=== PATIENT | male | born 1950 | race Caucasian/White ===

== ENCOUNTER 2017-07-29 12:30 | Inpatient (IN) | payer MEDICARE, MEDICAID ==
--- NOTE | 2017-07-29 13:10 | ED Physician Chart ---
ED Chief Complaint/HPI - Patient Information Date Seen:: 07/29/17 Time Seen:: 12:00 Chief Complaint:: combative behavior History of Present Illness:: At the patient's residential facility he was reportedly striking and spitting at others. Allergies:: Allergies Allergy/AdvReac Type Severity Reaction Status Date / Time No Known Allergies Allergy Verified 07/29/17 12:46 Vitals:: Vital Signs - 8 hr 07/29/17 12:33 Temp 97.9 F HR 75 RR 20 BP 118/69 O2 Sat % 97 Historian:: Patient, Medical Records Review:: Transfer documents Reviewed ED Review of Systems - Review of Systems General/Constitutional: No fever, No chills Skin: No skin lesions Head: No headache Eyes: No loss of vision ENT: No earache Neck: No neck pain, No swelling Cardio Vascular: No palpitations Pulmonary: No SOB GI: No nausea, No vomiting, No diarrhea G/U: No dysuria Musculoskeletal: No bone or joint pain Endocrine: No polyuria, No polydipsia Psychiatric: Prior psych history Hematopoietic: No bruising Allergic/Immuno: No urticaria Neurological: No syncope ED Past Medical History - Past Medical History Past Medical History: HTN, DM, CAD, CHF, Seizures Family History: Other (unavailable) Social History: Care Facility Surgical History: other (unavailable) Psychiatricy History: Other (psychosis) Medication: Reviewed Family Medical History - Family Member Mother Ethnicity: Non- Living Status: Unknown Hx Family Cancer: No Hx Family Coronary Artery Disease: No Hx Family Congestive Heart Failure: No Hx Family Hypertension: No Hx Family Stroke: No Hx Family Diabetes: No Hx Family Seizures: No Hx Family Dementia: No Hx Family AIDS: No Hx Family HIV: No Hx Family COPD: No Hx Family Hepatitis: No Hx Family Psychiatric Problems: No Hx Family Tuberculosis: No ED Physical Exam - Physical Examination General/Constitutional: Awake Other Gen/Cons comments:: Speech incomprehensible Head: Atraumatic Eyes: Lids, conjuctiva normal, PERRL Skin: Nl inspection, No rash, No skin lesions ENMT: External ears, nose nl Other ENMT comments:: Poor dental hygiene Neck: No nuchal rigidity Respiratory: Clear to Auscultation, No Wheeze/Rhonchi/Rales Cardio Vascular: RRR, No murmur, gallop, rubs GI: No tenderness/rebounding/guarding, No mass/bruits : No CVA tenderness Extremities: Normal digits & nails Neuro/Psych: No focal deficits Misc: No paraspinal tenderness ED Labs/Radiology/EKG Results - EKG Interpretations Rate & Rhythm: normal sinus rhythm with a report rate of 72 and normal axis Comments:: early repolarization ED Assessment - Assessment General Assessment: Patient refuses laboratory tests ED Septic Shock - . Is Septic Shock (SBP<90, OR Lactate>4 mmol\L) present?: No - <6hrs of presentation: Vital Signs: Vital Signs - 8 hr 07/29/17 12:33 Temp 97.9 F HR 75 RR 20 BP 118/69 O2 Sat % 97 ED Reassessment (Disposition) - Reassessment Reassessment Condition:: Unchanged - Diagnosis Diagnosis:: psychosis; combative behavior - Patient Disposition Admitted to:: [facility] Condition at Disposition:: Stable, Unchanged ED Discharge Plan - Patient Disposition
[2017-07-29 14:58] VITALS: BP 145/77
[2017-07-29] MEDS ORDERED: Magnesium Hydroxide (MOM) 30 mL UDC PO PRN (16:27)
[2017-07-29] MEDS ORDERED: Maalox 30 mL Cup PO PRN (16:27)
[2017-07-29 17:05] LABS: % BASOPHILS 0.2 % (0.0-2.0); % EOSINOPHILS 5.9 % (0.0-5.0); % LYMPHOCYTES 26.6 % (20.0-50.0); % NEUTROPHILS 60.3 % (40.0-80.0); EOSINOPHILE ABSOLUTE 0.3 Th/cmm (0.1-0.4); HEMATOCRIT 44.8 % (41.0-60); HEMOGLOBIN 14.8 gm/dL (12-16); LYMPHOCYTE ABSOLUTE 1.3 Th/cmm (1.5-3.0); MEAN CELL VOLUME 89.6 fl (80-99); MEAN CORPUSCULAR HEMOGLOBIN 29.6 pg (27.0-31.0); MEAN CORPUSCULAR HGB CONC 33.1 pg (28.0-36.0); MEAN PLATELET VOLUME 8.2 fl; MONOCYTE ABSOLUTE 0.3 Th/cmm (0.3-1.0); NEUTROPHILE ABSOLUTE 2.9 Th/cmm (1.8-8.0); PLATELET COUNT 263 Th/cmm (150-400); RED CELL DISTRIBUTION WIDTH 12.8 % (11.5-20.0); WHITE BLOOD COUNT 4.8 Th/cmm (4.8-10.8)
[2017-07-29 17:16] LABS: ACETAMINOPHEN < 10.0 ug/mL (10.0-30.0); CHOLESTEROL 252 mg/dL (<200); HDL -HIGH DENSITY LIPOPROTEIN 44 mg/dL (23-92); SALICYLATES (ASPIRIN) < 25.0 mg/L (30.0-100.0); TRIGLYCERIDES 265 mg/dL (<150)
[2017-07-29 17:40] LABS: ALB/GLOB RATIO 1.5 (1.0-1.8); ALBUMIN 4.5 gm/dL (4.2-5.5); ALKALINE PHOSPHATASE 32 U/L (34-104); ANION GAP 13.2 (7.0-16.0); BILIRUBIN,TOTAL 0.3 mg/dL (0.3-1.0); BUN - UREA NITROGEN 15 mg/dL (7-25); CALCIUM SERUM 9.4 mg/dL (8.6-10.3); CARBON DIOXIDE 21.4 mEq/L (21.0-31.0); CHLORIDE 102 mEq/L (98-107); CREATININE - SERUM 1.3 mg/dL (0.7-1.3); GFR AFRICAN-AMERICAN > 60.0 ml/min (>90); GFR NON AFRICAN-AMERICAN 58.9 ml/min; GLUCOSE 135 mg/dL (70-105); POTASSIUM SERUM 3.6 mEq/L (3.5-5.1); SGOT 20 U/L (13-39); SGPT/ALT 22 U/L (7-52); SODIUM SERUM 133 mEq/L (136-145); TOTAL PROTEIN,SERUM 7.6 gm/dL (6.0-8.3)
[2017-07-30] MEDS: Multivitamin Tab PO SCH (09:19)
[2017-07-30] MEDS: Lactulose 10 Gm/15 mL 30mL UDC PO SCH ×2 (09:19→17:07)
[2017-07-30] MEDS: Fenofibrate, Micronized 134 mg Cap PO SCH (09:20)
[2017-07-30 17:18] LABS: A1C % 5.8 % (4.0-6.0)
--- NOTE | 2017-07-30 19:49 | History and Physical ---
History of Present Illness - HPI Chief Complaint: agressive behvior HPI: This is a 67 year old male who is a prison resident admitted to the geropsych unit due to aggressive behavior towards nursing staff at the snf. Vital Signs: Last Vital Signs Temp 97.4 F 07/30/17 14:00 Pulse 98 07/30/17 14:00 Resp 20 07/30/17 14:00 BP 147/62 07/30/17 14:00 Pulse Ox 96 07/30/17 14:00 Past Medical History Other History: HTN, DM, CAD, CHF, Seizures Family Medical History - Family Member Mother History Unknown: Yes Ethnicity: Non- Living Status: Unknown Hx Family Cancer: No Hx Family Coronary Artery Disease: No Hx Family Congestive Heart Failure: No Hx Family Hypertension: No Hx Family Stroke: No Hx Family Diabetes: No Hx Family Seizures: No Hx Family Dementia: No Hx Family AIDS: No Hx Family HIV: No Hx Family COPD: No Hx Family Hepatitis: No Hx Family Psychiatric Problems: No Hx Family Tuberculosis: No Social History Smoke: No Alcohol: None Drugs: None Lives: Snf - Medications Home Medications: Home Medication Medication Instructions Recorded Type Acetaminophen [8 Hour] 650 mg PO Q4H PRN 07/29/17 History Acetaminophen [8 Hour] 650 mg PO Q4H PRN 07/29/17 History Bisacodyl [Dulcolax 10 Mg Supp] 10 mg RC DAILY PRN 07/29/17 History Carbamazepine [Tegretol Xr] 400 mg PO TID 07/29/17 History Citalopram Hydrobromide 20 mg PO DAILY 07/29/17 History [Citalopram HBr] Docusate Sodium [Dok] 200 mg PO DAILY 07/29/17 History Fenofibrate 160 mg PO DAILY 07/29/17 History Lactulose 20 gm PO BID 07/29/17 History Levetiracetam [Keppra] 1,000 mg PO HS 07/29/17 History Levetiracetam [Keppra] 500 mg PO QAM 07/29/17 History Magnesium Hydroxide [Milk of 30 ml PO DAILY PRN 07/29/17 History Magnesia] Multivitamin [Daily Vitamin 1 each PO DAILY 07/29/17 History Formula] Na Phos, Dibasic/Na Phos, Mo 135 ml RC DAILY PRN 07/29/17 History [Fleet Enema] Simvastatin [Zocor*] 20 mg PO HS 07/29/17 History - Allergies Allergies/Adverse Reactions: Allergies Allergy/AdvReac Type Severity Reaction Status Date / Time No Known Allergies Allergy Verified 07/29/17 12:46 Review of Systems - Review of Systems Constitutional: Report: No Significant Eyes: Report: No Significant ENT: Report: No Significant Respiratory: Report: No Significant Cardiovascular: Report: No Significant Gastrointestinal: Report: No Significant Genitourinary: Report: No Significant Skin: Report: No Significant Neurological: Report: No Significant Physical Exam - Physical Exam HEENT: Report: Ears Nose Throat within normal limits Neck: Report: Within normal limits Cardiovascular Systems: Report: +s1/s2 noted Respiratory: Report: Breath Sounds are within normal limits Extremities: Report: Non-tender to palpation. Neuro/Psych: Report: Mood affect is within normal limits - Lab Results All Lab Results last 24 hours: Laboratory Results - last 24 hr 07/29/17 07/29/17 16:48 16:48 Hemoglobin A1c % 5.8 RPR NONREACTIVE - Assessment Assessment: agitation htn seizure chf - Plan Plan: seizure precautions continue current orders
[2017-07-31] MEDS: Fenofibrate, Micronized 134 mg Cap PO SCH (08:00)
[2017-07-31] MEDS: Multivitamin Tab PO SCH (08:01)
[2017-07-31] MEDS: Lactulose 10 Gm/15 mL 30mL UDC PO SCH ×2 (08:01→16:36)
--- NOTE | 2017-07-31 16:02 | Psychosocial Evaluation ---
DATE OF SERVICE: 07/29/2017 CHIEF COMPLAINT: Agitation and noncompliance with medications. HISTORY OF PRESENT ILLNESS: The patient was transferred from [facility] to [facility] because of increased psychosis and because of noncompliance with medications and increased agitation. The patient also has been combative and aggressive and he was striking out in [facility] and he was spitting out others and his behavior was out of control. The patient is still extremely irritable and agitated. Also, is unable to follow directions and he seems to be very psychotic. PAST PSYCHIATRIC HISTORY: The patient has history of psychosis and what seems to be a schizoaffective disorder. MEDICATIONS: The patient has been taking Seroquel, Celexa, and carbamazepine. PAST MEDICAL HISTORY: The patient has hypertension, diabetes mellitus, coronary artery disease, congestive heart failure, and seizures. SOCIAL HISTORY: The patient lives in [facility]. No known alcohol or street drug use. No legal issues. ALLERGIES: No known allergies. MENTAL STATUS EXAMINATION: The patient appears slightly older than his stated age. Anxious. Paranoid. Irritable mood. Thought processes are circumstantial with flight of ideas. The patient did not answer questions regarding hallucinations or delusions, but seems to be paranoid. The patient denied suicidal or homicidal ideations. The patient is alert and oriented to situation, but not to place or person. Intact immediate, recent, and remote memories. Poor insight and poor judgment. ASSESSMENT: PRIMARY DIAGNOSIS: Schizoaffective disorder, bipolar type, with psychotic features. MEDICAL DIAGNOSES: 1. Hypertension. 2. Diabetes mellitus. 3. Congestive heart failure 4. Seizure disorder. TREATMENT PLAN: We will continue to monitor his behavior and his condition closely. Also, we will continue Seroquel as well as carbamazepine, and Celexa and we will adjust the dose. ESTIMATED LENGTH OF STAY: 5-7 days. THE PATIENT'S STRENGTHS AND WEAKNESSES: The patient's strength is not clear at this time. Weaknesses is ineffective coping. AFTER DISCHARGE PLAN: The patient will return to [facility] with plans for outpatient treatment and follow up as an outpatient. CRITERIA FOR DISCHARGE: The patient will not be agitated or psychotic and will stabilize psychotropic medications and will establish outpatient treatment plans. [facility]# [id number]
--- NOTE | 2017-07-31 19:19 | Progress Notes ---
DATE: 07/31/2017 SUBJECTIVE: The patient was seen in the dining area having breakfast. The patient appears to be guarded at this time, but no behavioral issues noted from last night, otherwise the patient appears to be in no acute distress. OBJECTIVE: VITAL SIGNS: Temperature 97.4, heart rate 98, blood pressure 147/62, respirations of 20, 96% on room air. HEENT: Head is atraumatic and normocephalic. Eyes: Bilateral conjunctivae are clear. Bilateral pupils are equally round and reactive. NECK: Supple. No JVD. CARDIOVASCULAR: S1 and S2 without murmur. PULMONARY: Clear to auscultation. GASTROINTESTINAL: Soft and nontender without guarding. Positive bowel sounds. MUSCULOSKELETAL: No clubbing. No cyanosis noted. ASSESSMENT: 1. Agitation. 2. Hypertension. 3. Congestive heart failure. 4. Seizure disorder. PLAN: We will keep the patient in Inpatient Psychiatric Unit. We will follow up with a psychiatrist to monitor the patient's condition and behavior. We are going to put the patient on seizure precaution. Treatment plans were discussed with the patient's nurse. Treatment plans were discussed with Dr. Wilson. JOB# [id number]
[2017-08-01] MEDS: Lactulose 10 Gm/15 mL 30mL UDC PO SCH ×2 (08:35→16:28)
[2017-08-01] MEDS: Multivitamin Tab PO SCH (08:35)
[2017-08-01] MEDS: Fenofibrate, Micronized 134 mg Cap PO SCH (08:35)
--- NOTE | 2017-08-01 09:09 | General Progress Note ---
Subjective - Review of Systems Events since last encounter: in no acute distress comfortable Objective - Results Result Diagrams: 07/29/17 16:48 07/29/17 16:41 Recent Labs: Laboratory Last Values WBC 4.8 Th/cmm (4.8-10.8) 07/29/17 16:48 RBC 5.00 Mil/cmm (3.80-5.80) 07/29/17 16:48 Hgb 14.8 gm/dL (12-16) 07/29/17 16:48 Hct 44.8 % (41.0-60) 07/29/17 16:48 MCV 89.6 fl (80-99) 07/29/17 16:48 MCH 29.6 pg (27.0-31.0) 07/29/17 16:48 MCHC Differential 33.1 pg (28.0-36.0) 07/29/17 16:48 RDW 12.8 % (11.5-20.0) 07/29/17 16:48 Plt Count 263 Th/cmm (150-400) 07/29/17 16:48 MPV 8.2 fl 07/29/17 16:48 Neutrophils % 60.3 % (40.0-80.0) 07/29/17 16:48 Lymphocytes % 26.6 % (20.0-50.0) 07/29/17 16:48 Monocytes % 7.0 % (2.0-10.0) 07/29/17 16:48 Eosinophils % 5.9 % (0.0-5.0) H 07/29/17 16:48 Basophils % 0.2 % (0.0-2.0) 07/29/17 16:48 Sodium 133 mEq/L (136-145) L 07/29/17 16:41 Potassium 3.6 mEq/L (3.5-5.1) 07/29/17 16:41 Chloride 102 mEq/L (98-107) 07/29/17 16:41 Carbon Dioxide 21.4 mEq/L (21.0-31.0) 07/29/17 16:41 Anion Gap 13.2 (7.0-16.0) 07/29/17 16:41 BUN 15 mg/dL (7-25) 07/29/17 16:41 Creatinine 1.3 mg/dL (0.7-1.3) 07/29/17 16:41 Est GFR ( Amer) > 60.0 ml/min (>90) 07/29/17 16:41 Est GFR (Non-Af Amer) 58.9 ml/min 07/29/17 16:41 BUN/Creatinine Ratio 11.5 07/29/17 16:41 Glucose 135 mg/dL (70-105) H 07/29/17 16:41 Hemoglobin A1c % 5.8 % (4.0-6.0) 07/29/17 16:48 Calcium 9.4 mg/dL (8.6-10.3) 07/29/17 16:41 Total Bilirubin 0.3 mg/dL (0.3-1.0) 07/29/17 16:41 AST 20 U/L (13-39) 07/29/17 16:41 ALT 22 U/L (7-52) 07/29/17 16:41 Alkaline Phosphatase 32 U/L (34-104) L 07/29/17 16:41 Total Protein 7.6 gm/dL (6.0-8.3) 07/29/17 16:41 Albumin 4.5 gm/dL (4.2-5.5) 07/29/17 16:41 Globulin 3.1 gm/dL 07/29/17 16:41 Albumin/Globulin Ratio 1.5 (1.0-1.8) 07/29/17 16:41 Triglycerides 265 mg/dL (<150) H 07/29/17 16:48 Cholesterol 252 mg/dL (<200) H 07/29/17 16:48 LDL Cholesterol Direct 176 mg/dL (75-193) 07/29/17 16:48 HDL Cholesterol 44 mg/dL (23-92) 07/29/17 16:48 TSH 2.03 uIU/ml (0.34-5.60) 07/29/17 16:48 Salicylates < 25.0 mg/L (30.0-100.0) L 07/29/17 16:48 Acetaminophen < 10.0 ug/mL (10.0-30.0) L 07/29/17 16:48 Carbamazepine 4.5 ug/ml (4.0-12.0) 07/29/17 16:48 Ethyl Alcohol < 10 mg/dL (0-10) 07/29/17 16:48 RPR NONREACTIVE (NONREACTIVE) 07/29/17 16:48 - Physical Exam Vitals and I&O: Vital Signs Temp 97.6 F 07/31/17 21:08 Pulse 88 07/31/17 21:08 Resp 20 07/31/17 21:08 BP 132/76 07/31/17 21:08 Pulse Ox 94 07/31/17 21:08 Intake & Output 07/31/17 08/01/17 08/01/17 18:59 06:59 18:59 Intake Total 1200 240 Balance 1200 240 Intake: Oral 1200 240 Other: # Voids 4 1 # Bowel Movements 1 Active Medications: Current Medications Acetaminophen (Tylenol) 650 mg PO Q4HR PRN PRN Reason: Mild Pain / Temp above 100 Stop: 09/27/17 16:26 Al Hydrox/Mg Hydrox/Simethicone (Maalox) 30 ml PO Q4HR PRN PRN Reason: GI DISTRESS Stop: 09/27/17 16:26 Carbamazepine (Tegretol) 200 mg PO TID [facility] PRN Reason: Protocol Stop: 09/28/17 08:59 Last Admin: 08/01/17 08:34 Dose: Not Given Citalopram Hydrobromide (Celexa) 20 mg PO DAILY [facility] PRN Reason: Protocol Stop: 09/28/17 08:59 Last Admin: 08/01/17 08:34 Dose: Not Given Docusate Sodium (Colace) 200 mg PO DAILY [facility] Stop: 09/28/17 08:59 Last Admin: 08/01/17 08:34 Dose: Not Given Fenofibrate (Tricor) 134 mg PO DAILY [facility] Stop: 09/28/17 08:59 Last Admin: 08/01/17 08:35 Dose: Not Given Lactulose (Cephulac) 20 gm PO BID [facility] Stop: 09/28/17 08:59 Last Admin: 08/01/17 08:35 Dose: Not Given Levetiracetam (Keppra) 1,000 mg PO HS [facility] Stop: 09/28/17 20:59 Last Admin: 07/31/17 20:22 Dose: Not Given Lorazepam (Ativan) 0.5 mg PO Q4HR PRN; Protocol PRN Reason: Agitation Stop: 08/28/17 16:26 Magnesium Hydroxide (Milk Of Magnesia) 30 ml PO HS PRN PRN Reason: Constipation Multivitamins/Vitamin C (Theragran) 1 tab PO DAILY [facility] Stop: 09/28/17 08:59 Last Admin: 08/01/17 08:35 Dose: Not Given Quetiapine Fumarate (Seroquel) 25 mg PO BID [facility] PRN Reason: Protocol Stop: 09/28/17 08:59 Last Admin: 08/01/17 08:35 Dose: Not Given Simvastatin (Zocor) 20 mg PO HS [facility] PRN Reason: Protocol Stop: 09/28/17 20:59 Last Admin: 07/31/17 20:22 Dose: Not Given Zolpidem Tartrate (Ambien) 5 mg PO HS PRN PRN Reason: Insomnia Stop: 09/27/17 16:26 - Procedures Procedures: Procedures Procedure Code Date BIOPSY EYELID & LID MARGIN 61508 10/04/98 EYELID BIOPSY 08.11 10/04/98 OTHER LOCAL DESTRUC SKIN 86.3 10/11/08 REMOVAL OF SKIN TAGS <W/15 82474 10/11/08
--- NOTE | 2017-08-01 17:34 | Progress Notes ---
DATE: SUBJECTIVE: Chart reviewed and the patient interviewed. I also discussed the patient's condition with the staff and reviewed records and labs. The patient is still mumbling and is still paranoid. The patient also is still going around ____ chair, bumping into other patients. Also is still easy irritable and easy agitated and needs lots of redirections. Also, when talked to the patient, he has no eye contact and he is wandering around the unit. Otherwise, the patient has episodes of irritability and agitation. ASSESSMENT: The patient is still agitated psychotic. TREATMENT PLAN: Continue to monitor his behavior and his condition closely and we will continue to follow up. JOB# [id number]
[2017-08-02] MEDS: Lactulose 10 Gm/15 mL 30mL UDC PO SCH ×2 (08:07→16:19)
[2017-08-02] MEDS: Fenofibrate, Micronized 134 mg Cap PO SCH (08:07)
[2017-08-02] MEDS: Multivitamin Tab PO SCH (08:08)
--- NOTE | 2017-08-02 09:39 | General Progress Note ---
Subjective - Review of Systems Events since last encounter: no change Objective - Results Result Diagrams: 07/29/17 16:48 07/29/17 16:41 Recent Labs: Laboratory Last Values WBC 4.8 Th/cmm (4.8-10.8) 07/29/17 16:48 RBC 5.00 Mil/cmm (3.80-5.80) 07/29/17 16:48 Hgb 14.8 gm/dL (12-16) 07/29/17 16:48 Hct 44.8 % (41.0-60) 07/29/17 16:48 MCV 89.6 fl (80-99) 07/29/17 16:48 MCH 29.6 pg (27.0-31.0) 07/29/17 16:48 MCHC Differential 33.1 pg (28.0-36.0) 07/29/17 16:48 RDW 12.8 % (11.5-20.0) 07/29/17 16:48 Plt Count 263 Th/cmm (150-400) 07/29/17 16:48 MPV 8.2 fl 07/29/17 16:48 Neutrophils % 60.3 % (40.0-80.0) 07/29/17 16:48 Lymphocytes % 26.6 % (20.0-50.0) 07/29/17 16:48 Monocytes % 7.0 % (2.0-10.0) 07/29/17 16:48 Eosinophils % 5.9 % (0.0-5.0) H 07/29/17 16:48 Basophils % 0.2 % (0.0-2.0) 07/29/17 16:48 Sodium 133 mEq/L (136-145) L 07/29/17 16:41 Potassium 3.6 mEq/L (3.5-5.1) 07/29/17 16:41 Chloride 102 mEq/L (98-107) 07/29/17 16:41 Carbon Dioxide 21.4 mEq/L (21.0-31.0) 07/29/17 16:41 Anion Gap 13.2 (7.0-16.0) 07/29/17 16:41 BUN 15 mg/dL (7-25) 07/29/17 16:41 Creatinine 1.3 mg/dL (0.7-1.3) 07/29/17 16:41 Est GFR ( Amer) > 60.0 ml/min (>90) 07/29/17 16:41 Est GFR (Non-Af Amer) 58.9 ml/min 07/29/17 16:41 BUN/Creatinine Ratio 11.5 07/29/17 16:41 Glucose 135 mg/dL (70-105) H 07/29/17 16:41 Hemoglobin A1c % 5.8 % (4.0-6.0) 07/29/17 16:48 Calcium 9.4 mg/dL (8.6-10.3) 07/29/17 16:41 Total Bilirubin 0.3 mg/dL (0.3-1.0) 07/29/17 16:41 AST 20 U/L (13-39) 07/29/17 16:41 ALT 22 U/L (7-52) 07/29/17 16:41 Alkaline Phosphatase 32 U/L (34-104) L 07/29/17 16:41 Total Protein 7.6 gm/dL (6.0-8.3) 07/29/17 16:41 Albumin 4.5 gm/dL (4.2-5.5) 07/29/17 16:41 Globulin 3.1 gm/dL 07/29/17 16:41 Albumin/Globulin Ratio 1.5 (1.0-1.8) 07/29/17 16:41 Triglycerides 265 mg/dL (<150) H 07/29/17 16:48 Cholesterol 252 mg/dL (<200) H 07/29/17 16:48 LDL Cholesterol Direct 176 mg/dL (75-193) 07/29/17 16:48 HDL Cholesterol 44 mg/dL (23-92) 07/29/17 16:48 TSH 2.03 uIU/ml (0.34-5.60) 07/29/17 16:48 Salicylates < 25.0 mg/L (30.0-100.0) L 07/29/17 16:48 Acetaminophen < 10.0 ug/mL (10.0-30.0) L 07/29/17 16:48 Carbamazepine 4.5 ug/ml (4.0-12.0) 07/29/17 16:48 Ethyl Alcohol < 10 mg/dL (0-10) 07/29/17 16:48 RPR NONREACTIVE (NONREACTIVE) 07/29/17 16:48 - Physical Exam Vitals and I&O: Vital Signs Temp 97.8 F 08/01/17 20:41 Pulse 91 08/01/17 20:41 Resp 18 08/01/17 20:41 BP 162/67 08/01/17 20:41 Pulse Ox 94 08/01/17 20:41 Intake & Output 08/01/17 08/02/17 08/02/17 18:59 06:59 18:59 Intake Total 950 240 Balance 950 240 Intake: Oral 950 240 Other: # Voids 4 1 # Bowel Movements 1 Active Medications: Current Medications Acetaminophen (Tylenol) 650 mg PO Q4HR PRN PRN Reason: Mild Pain / Temp above 100 Stop: 09/27/17 16:26 Al Hydrox/Mg Hydrox/Simethicone (Maalox) 30 ml PO Q4HR PRN PRN Reason: GI DISTRESS Stop: 09/27/17 16:26 Carbamazepine (Tegretol) 200 mg PO TID [facility] PRN Reason: Protocol Stop: 09/28/17 08:59 Last Admin: 08/02/17 08:07 Dose: Not Given Citalopram Hydrobromide (Celexa) 20 mg PO DAILY [facility] PRN Reason: Protocol Stop: 09/28/17 08:59 Last Admin: 08/02/17 08:07 Dose: Not Given Docusate Sodium (Colace) 200 mg PO DAILY [facility] Stop: 09/28/17 08:59 Last Admin: 08/02/17 08:07 Dose: Not Given Fenofibrate (Tricor) 134 mg PO DAILY [facility] Stop: 09/28/17 08:59 Last Admin: 08/02/17 08:07 Dose: Not Given Lactulose (Cephulac) 20 gm PO BID [facility] Stop: 09/28/17 08:59 Last Admin: 08/02/17 08:07 Dose: Not Given Levetiracetam (Keppra) 1,000 mg PO HS [facility] Stop: 09/28/17 20:59 Last Admin: 08/01/17 21:00 Dose: Not Given Lorazepam (Ativan) 0.5 mg PO Q4HR PRN; Protocol PRN Reason: Agitation Stop: 08/28/17 16:26 Magnesium Hydroxide (Milk Of Magnesia) 30 ml PO HS PRN PRN Reason: Constipation Multivitamins/Vitamin C (Theragran) 1 tab PO DAILY [facility] Stop: 09/28/17 08:59 Last Admin: 08/02/17 08:08 Dose: Not Given Quetiapine Fumarate (Seroquel) 25 mg PO BID [facility] PRN Reason: Protocol Stop: 09/28/17 08:59 Last Admin: 08/02/17 08:08 Dose: Not Given Simvastatin (Zocor) 20 mg PO HS [facility] PRN Reason: Protocol Stop: 09/28/17 20:59 Last Admin: 08/01/17 21:00 Dose: Not Given Zolpidem Tartrate (Ambien) 5 mg PO HS PRN PRN Reason: Insomnia Stop: 09/27/17 16:26 - Procedures Procedures: Procedures Procedure Code Date BIOPSY EYELID & LID MARGIN 07809 10/04/98 EYELID BIOPSY 08.11 10/04/98 OTHER LOCAL DESTRUC SKIN 86.3 10/11/08 REMOVAL OF SKIN TAGS <W/15 09607 10/11/08
[2017-08-03] MEDS: Multivitamin Tab PO SCH (11:19)
[2017-08-03] MEDS: Fenofibrate, Micronized 134 mg Cap PO SCH (11:19)
[2017-08-03] MEDS: Lactulose 10 Gm/15 mL 30mL UDC PO SCH ×2 (11:19→17:52)
--- NOTE | 2017-08-03 12:29 | Internal Medicine Prog Note ---
Internal Medicine Subjective - Subjective Service Date: 08/03/17 Patient seen and examined:: with staff Internal Medicine Objective - Results Result Diagrams: 07/29/17 16:48 07/29/17 16:41 Recent Labs: Laboratory Last Values WBC 4.8 Th/cmm (4.8-10.8) 07/29/17 16:48 RBC 5.00 Mil/cmm (3.80-5.80) 07/29/17 16:48 Hgb 14.8 gm/dL (12-16) 07/29/17 16:48 Hct 44.8 % (41.0-60) 07/29/17 16:48 MCV 89.6 fl (80-99) 07/29/17 16:48 MCH 29.6 pg (27.0-31.0) 07/29/17 16:48 MCHC Differential 33.1 pg (28.0-36.0) 07/29/17 16:48 RDW 12.8 % (11.5-20.0) 07/29/17 16:48 Plt Count 263 Th/cmm (150-400) 07/29/17 16:48 MPV 8.2 fl 07/29/17 16:48 Neutrophils % 60.3 % (40.0-80.0) 07/29/17 16:48 Lymphocytes % 26.6 % (20.0-50.0) 07/29/17 16:48 Monocytes % 7.0 % (2.0-10.0) 07/29/17 16:48 Eosinophils % 5.9 % (0.0-5.0) H 07/29/17 16:48 Basophils % 0.2 % (0.0-2.0) 07/29/17 16:48 Sodium 133 mEq/L (136-145) L 07/29/17 16:41 Potassium 3.6 mEq/L (3.5-5.1) 07/29/17 16:41 Chloride 102 mEq/L (98-107) 07/29/17 16:41 Carbon Dioxide 21.4 mEq/L (21.0-31.0) 07/29/17 16:41 Anion Gap 13.2 (7.0-16.0) 07/29/17 16:41 BUN 15 mg/dL (7-25) 07/29/17 16:41 Creatinine 1.3 mg/dL (0.7-1.3) 07/29/17 16:41 Est GFR ( Amer) > 60.0 ml/min (>90) 07/29/17 16:41 Est GFR (Non-Af Amer) 58.9 ml/min 07/29/17 16:41 BUN/Creatinine Ratio 11.5 07/29/17 16:41 Glucose 135 mg/dL (70-105) H 07/29/17 16:41 Hemoglobin A1c % 5.8 % (4.0-6.0) 07/29/17 16:48 Calcium 9.4 mg/dL (8.6-10.3) 07/29/17 16:41 Total Bilirubin 0.3 mg/dL (0.3-1.0) 07/29/17 16:41 AST 20 U/L (13-39) 07/29/17 16:41 ALT 22 U/L (7-52) 07/29/17 16:41 Alkaline Phosphatase 32 U/L (34-104) L 07/29/17 16:41 Total Protein 7.6 gm/dL (6.0-8.3) 07/29/17 16:41 Albumin 4.5 gm/dL (4.2-5.5) 07/29/17 16:41 Globulin 3.1 gm/dL 07/29/17 16:41 Albumin/Globulin Ratio 1.5 (1.0-1.8) 07/29/17 16:41 Triglycerides 265 mg/dL (<150) H 07/29/17 16:48 Cholesterol 252 mg/dL (<200) H 07/29/17 16:48 LDL Cholesterol Direct 176 mg/dL (75-193) 07/29/17 16:48 HDL Cholesterol 44 mg/dL (23-92) 07/29/17 16:48 TSH 2.03 uIU/ml (0.34-5.60) 07/29/17 16:48 Salicylates < 25.0 mg/L (30.0-100.0) L 07/29/17 16:48 Acetaminophen < 10.0 ug/mL (10.0-30.0) L 07/29/17 16:48 Carbamazepine 4.5 ug/ml (4.0-12.0) 07/29/17 16:48 Ethyl Alcohol < 10 mg/dL (0-10) 07/29/17 16:48 RPR NONREACTIVE (NONREACTIVE) 07/29/17 16:48 - Physical Exam Vitals and I&O: Vital Signs Temp 97.9 F 08/02/17 19:48 Pulse 101 08/02/17 19:48 Resp 19 08/02/17 22:23 BP 117/69 08/02/17 19:48 Pulse Ox 97 08/02/17 19:48 Intake & Output 08/02/17 08/03/17 08/03/17 18:59 06:59 18:59 Intake Total 1200 490 Balance 1200 490 Intake: Oral 1200 490 Other: # Voids 4 3 # Bowel Movements 1 0 Active Medications: Current Medications Acetaminophen (Tylenol) 650 mg PO Q4HR PRN PRN Reason: Mild Pain / Temp above 100 Stop: 09/27/17 16:26 Al Hydrox/Mg Hydrox/Simethicone (Maalox) 30 ml PO Q4HR PRN PRN Reason: GI DISTRESS Stop: 09/27/17 16:26 Carbamazepine (Tegretol) 200 mg PO TID [facility] PRN Reason: Protocol Stop: 09/28/17 08:59 Last Admin: 08/03/17 11:18 Dose: Not Given Citalopram Hydrobromide (Celexa) 20 mg PO DAILY [facility] PRN Reason: Protocol Stop: 09/28/17 08:59 Last Admin: 08/03/17 11:18 Dose: Not Given Docusate Sodium (Colace) 200 mg PO DAILY [facility] Stop: 09/28/17 08:59 Last Admin: 08/03/17 11:18 Dose: Not Given Fenofibrate (Tricor) 134 mg PO DAILY [facility] Stop: 09/28/17 08:59 Last Admin: 08/03/17 11:19 Dose: Not Given Lactulose (Cephulac) 20 gm PO BID [facility] Stop: 09/28/17 08:59 Last Admin: 08/03/17 11:19 Dose: Not Given Levetiracetam (Keppra) 1,000 mg PO HS [facility] Stop: 09/28/17 20:59 Last Admin: 08/02/17 20:01 Dose: Not Given Lorazepam (Ativan) 0.5 mg PO Q4HR PRN; Protocol PRN Reason: Agitation Stop: 08/28/17 16:26 Magnesium Hydroxide (Milk Of Magnesia) 30 ml PO HS PRN PRN Reason: Constipation Multivitamins/Vitamin C (Theragran) 1 tab PO DAILY [facility] Stop: 09/28/17 08:59 Last Admin: 08/03/17 11:19 Dose: Not Given Quetiapine Fumarate (Seroquel) 25 mg PO BID [facility] PRN Reason: Protocol Stop: 09/28/17 08:59 Last Admin: 08/03/17 11:19 Dose: Not Given Simvastatin (Zocor) 20 mg PO HS [facility] PRN Reason: Protocol Stop: 09/28/17 20:59 Last Admin: 08/02/17 20:01 Dose: Not Given Zolpidem Tartrate (Ambien) 5 mg PO HS PRN PRN Reason: Insomnia Stop: 09/27/17 16:26 General: alert HEENT: NC/AT, PERRLA Neck: Supple Lungs: CTAB Abdomen: soft, non-tender Neurological: alert - Procedures Procedures: Procedures Procedure Code Date BIOPSY EYELID & LID MARGIN 67668 10/04/98 EYELID BIOPSY 08.11 10/04/98 OTHER LOCAL DESTRUC SKIN 86.3 10/11/08 REMOVAL OF SKIN TAGS <W/15 08927 10/11/08 Internal Medicine Assmt/Plan - Assessment Assessment: agitation htn seizure chf - Plan Plan: seizure precautions continue current orders
--- NOTE | 2017-08-04 07:02 | Progress Notes ---
DATE: 08/01/2017 SUBJECTIVE: Chart reviewed and the patient interviewed. Also discussed the patient's condition with the staff and reviewed records and labs. The patient did not sleep most of last night. He refused to go to his bed and insisted to stay in the hallway or in the living room area. He also refused to take any medications. He also gets agitated and irritable easily, especially when staff tries to redirect him. Also, has periods of yelling and screaming constantly with difficulty to redirect him. Also, during interview, the patient has disorganized thoughts and he is mumbling and he have irritability and agitation. Also, is unable to carry on coherent conversation because of irritability and agitation. ASSESSMENT: The patient is still agitated and psychotic. TREATMENT PLAN: Continue working on the patient's compliance with all his medications and also continue to work on his irritability and agitation. Also, continue to work on behavior modification. Communication with [facility] administrator indicated that they do not want the patient back and we will work with director of casework services in regard to placement. JOB# [id number]
--- NOTE | 2017-08-04 09:43 | General Progress Note ---
Subjective - Review of Systems Events since last encounter: still psychotic agitated at times Objective - Results Result Diagrams: 07/29/17 16:48 07/29/17 16:41 Recent Labs: Laboratory Last Values WBC 4.8 Th/cmm (4.8-10.8) 07/29/17 16:48 RBC 5.00 Mil/cmm (3.80-5.80) 07/29/17 16:48 Hgb 14.8 gm/dL (12-16) 07/29/17 16:48 Hct 44.8 % (41.0-60) 07/29/17 16:48 MCV 89.6 fl (80-99) 07/29/17 16:48 MCH 29.6 pg (27.0-31.0) 07/29/17 16:48 MCHC Differential 33.1 pg (28.0-36.0) 07/29/17 16:48 RDW 12.8 % (11.5-20.0) 07/29/17 16:48 Plt Count 263 Th/cmm (150-400) 07/29/17 16:48 MPV 8.2 fl 07/29/17 16:48 Neutrophils % 60.3 % (40.0-80.0) 07/29/17 16:48 Lymphocytes % 26.6 % (20.0-50.0) 07/29/17 16:48 Monocytes % 7.0 % (2.0-10.0) 07/29/17 16:48 Eosinophils % 5.9 % (0.0-5.0) H 07/29/17 16:48 Basophils % 0.2 % (0.0-2.0) 07/29/17 16:48 Sodium 133 mEq/L (136-145) L 07/29/17 16:41 Potassium 3.6 mEq/L (3.5-5.1) 07/29/17 16:41 Chloride 102 mEq/L (98-107) 07/29/17 16:41 Carbon Dioxide 21.4 mEq/L (21.0-31.0) 07/29/17 16:41 Anion Gap 13.2 (7.0-16.0) 07/29/17 16:41 BUN 15 mg/dL (7-25) 07/29/17 16:41 Creatinine 1.3 mg/dL (0.7-1.3) 07/29/17 16:41 Est GFR ( Amer) > 60.0 ml/min (>90) 07/29/17 16:41 Est GFR (Non-Af Amer) 58.9 ml/min 07/29/17 16:41 BUN/Creatinine Ratio 11.5 07/29/17 16:41 Glucose 135 mg/dL (70-105) H 07/29/17 16:41 Hemoglobin A1c % 5.8 % (4.0-6.0) 07/29/17 16:48 Calcium 9.4 mg/dL (8.6-10.3) 07/29/17 16:41 Total Bilirubin 0.3 mg/dL (0.3-1.0) 07/29/17 16:41 AST 20 U/L (13-39) 07/29/17 16:41 ALT 22 U/L (7-52) 07/29/17 16:41 Alkaline Phosphatase 32 U/L (34-104) L 07/29/17 16:41 Total Protein 7.6 gm/dL (6.0-8.3) 07/29/17 16:41 Albumin 4.5 gm/dL (4.2-5.5) 07/29/17 16:41 Globulin 3.1 gm/dL 07/29/17 16:41 Albumin/Globulin Ratio 1.5 (1.0-1.8) 07/29/17 16:41 Triglycerides 265 mg/dL (<150) H 07/29/17 16:48 Cholesterol 252 mg/dL (<200) H 07/29/17 16:48 LDL Cholesterol Direct 176 mg/dL (75-193) 07/29/17 16:48 HDL Cholesterol 44 mg/dL (23-92) 07/29/17 16:48 TSH 2.03 uIU/ml (0.34-5.60) 07/29/17 16:48 Salicylates < 25.0 mg/L (30.0-100.0) L 07/29/17 16:48 Acetaminophen < 10.0 ug/mL (10.0-30.0) L 07/29/17 16:48 Carbamazepine 4.5 ug/ml (4.0-12.0) 07/29/17 16:48 Ethyl Alcohol < 10 mg/dL (0-10) 07/29/17 16:48 RPR NONREACTIVE (NONREACTIVE) 07/29/17 16:48 - Physical Exam Vitals and I&O: Vital Signs Temp 97.3 F 08/04/17 06:18 Pulse 95 08/04/17 06:18 Resp 19 08/04/17 06:18 BP 137/90 08/04/17 06:18 Pulse Ox 96 08/04/17 06:18 Intake & Output 08/03/17 08/04/17 08/04/17 18:59 06:59 18:59 Intake Total 1200 120 Balance 1200 120 Intake: Oral 1200 120 Other: # Voids 3 3 # Bowel Movements 0 Active Medications: Current Medications Acetaminophen (Tylenol) 650 mg PO Q4HR PRN PRN Reason: Mild Pain / Temp above 100 Stop: 09/27/17 16:26 Al Hydrox/Mg Hydrox/Simethicone (Maalox) 30 ml PO Q4HR PRN PRN Reason: GI DISTRESS Stop: 09/27/17 16:26 Carbamazepine (Tegretol) 200 mg PO TID [facility] PRN Reason: Protocol Stop: 09/28/17 08:59 Last Admin: 08/03/17 21:24 Dose: Not Given Citalopram Hydrobromide (Celexa) 20 mg PO DAILY [facility] PRN Reason: Protocol Stop: 09/28/17 08:59 Last Admin: 08/03/17 11:18 Dose: Not Given Docusate Sodium (Colace) 200 mg PO DAILY [facility] Stop: 09/28/17 08:59 Last Admin: 08/03/17 11:18 Dose: Not Given Fenofibrate (Tricor) 134 mg PO DAILY [facility] Stop: 09/28/17 08:59 Last Admin: 08/03/17 11:19 Dose: Not Given Lactulose (Cephulac) 20 gm PO BID [facility] Stop: 09/28/17 08:59 Last Admin: 08/03/17 17:52 Dose: Not Given Levetiracetam (Keppra) 1,000 mg PO HS [facility] Stop: 09/28/17 20:59 Last Admin: 08/03/17 21:24 Dose: Not Given Lorazepam (Ativan) 0.5 mg PO Q4HR PRN; Protocol PRN Reason: Agitation Stop: 08/28/17 16:26 Magnesium Hydroxide (Milk Of Magnesia) 30 ml PO HS PRN PRN Reason: Constipation Multivitamins/Vitamin C (Theragran) 1 tab PO DAILY [facility] Stop: 09/28/17 08:59 Last Admin: 08/03/17 11:19 Dose: Not Given Olanzapine (Zyprexa Zydis) 10 mg PO BID [facility] PRN Reason: Protocol Stop: 10/03/17 08:59 Simvastatin (Zocor) 20 mg PO HS [facility] PRN Reason: Protocol Stop: 09/28/17 20:59 Last Admin: 08/03/17 21:24 Dose: Not Given Zolpidem Tartrate (Ambien) 5 mg PO HS PRN PRN Reason: Insomnia Stop: 09/27/17 16:26 - Procedures Procedures: Procedures Procedure Code Date BIOPSY EYELID & LID MARGIN 41517 10/04/98 EYELID BIOPSY 08.11 10/04/98 OTHER LOCAL DESTRUC SKIN 86.3 10/11/08 REMOVAL OF SKIN TAGS <W/15 75986 10/11/08 Nutritional Asmnt/Malnutr-PDOC - Dietary Evaluation Malnutrition Findings (Please click <Entered> for more info): Nutritional Asmnt/Malnutrition Start: 08/03/17 18: 54 Text: Status: Complete Freq: Document 08/03/17 18:54 AARON (Rec: 08/03/17 18:58 AARON [id number]) Nutritional Asmnt/Malnutrition Patient General Information Nutritional Screening Moderate Risk Diagnosis psychosis Pertinent Medical Hx/Surgical Hx HTN, Dm, CAD, CHF, seizures Subjective Information Per records, PO intake 75%. Current Diet Order/ Nutrition Support [facility] soft chopped Pertinent Medications colace, theragran, seroquel Pertinent Labs 2/ Na 133, glucose 135, a1c 5 .8 Nutritional Hx/Data Height 1.88 m Height (Calculated Centimeters) 188.0 Current Weight (lbs) 114.305 kg Weight (Calculated Kilograms) 114.3 Weight (Calculated Grams) 727687.3 [place] Body Weight 190 Body Mass Index (BMI) 32.3 Weight Status Obese GI Symptoms GI Symptoms None Last BM 2/5 Difficult in: None Skin Integrity/Comment: intact Estimated Nutritional Goals BEE in Kcals: Adj wt of IBW Calories/Kcals/Kg 25-30 Kcals Calculated 7712-6886 Protein: Adj wt of IBW Protein g/k.8-1 Protein Calculated 74-93 Fluid: ml 9128-6978 Nutritional Problem No current Nutrition Prob Problem N/A Malnutrition Alert Protein-Calorie Malnutrition N/A Is there a minimum of two criteria No selected? Query Text:Check all the applicable criteria. A minimum of two criteria are recommended for diagnosis of either severe or non-severe malnutrition. Intervention/Recommendation Comments 1. Continue with current diet as ordered. 2. Monitor PO intake, wt, labs and skin integrity 3. F/U as low risk in 7 days, 08/10 Expected Outcomes/Goals Expected Outcomes/Goals 1. PO intake to meet at least 75% of nutritional needs. 2. Wt stability, skin to remain intact, labs to approach WNL.
[2017-08-04] MEDS: Fenofibrate, Micronized 134 mg Cap PO SCH (11:24)
[2017-08-04] MEDS: Multivitamin Tab PO SCH (18:03)
[2017-08-04] MEDS: OLANZapine 10 mg Oral Disintegrating Tab PO SCH (18:03)
[2017-08-04] MEDS: Lactulose 10 Gm/15 mL 30mL UDC PO SCH (18:03)
--- NOTE | 2017-08-04 23:48 | Progress Notes ---
DATE: 08/02/2017 SUBJECTIVE: Chart reviewed and the patient interviewed. Also discussed the patient's condition with the staff and reviewed records and labs. The patient continued to be severely agitated and in irritable mood. The patient also is still resisting care and wandering around the unit with a wheelchair. Also refused to answer questions and mumbles and gets easily agitated. The patient also is still refusing medications and refusing care. The patient also is still unable to sleep most of the night. Otherwise, the patient still has no place to live and I have continued to work with and monitor in regard to discharge plans and placement issue and that the patient will not be able to return there and placement is pending. ASSESSMENT: The patient is still aggressive and is still delusional. TREATMENT PLAN: Continue working on discharge plans and also continued to talk with the patient in regard to compliance with medications and importance of taking medications and hopefully he will start to do so. JOB# [id number]
--- NOTE | 2017-08-05 08:42 | General Progress Note ---
Subjective - Review of Systems Events since last encounter: patient confused in no acute distress Objective - Results Result Diagrams: 07/29/17 16:48 07/29/17 16:41 Recent Labs: Laboratory Last Values WBC 4.8 Th/cmm (4.8-10.8) 07/29/17 16:48 RBC 5.00 Mil/cmm (3.80-5.80) 07/29/17 16:48 Hgb 14.8 gm/dL (12-16) 07/29/17 16:48 Hct 44.8 % (41.0-60) 07/29/17 16:48 MCV 89.6 fl (80-99) 07/29/17 16:48 MCH 29.6 pg (27.0-31.0) 07/29/17 16:48 MCHC Differential 33.1 pg (28.0-36.0) 07/29/17 16:48 RDW 12.8 % (11.5-20.0) 07/29/17 16:48 Plt Count 263 Th/cmm (150-400) 07/29/17 16:48 MPV 8.2 fl 07/29/17 16:48 Neutrophils % 60.3 % (40.0-80.0) 07/29/17 16:48 Lymphocytes % 26.6 % (20.0-50.0) 07/29/17 16:48 Monocytes % 7.0 % (2.0-10.0) 07/29/17 16:48 Eosinophils % 5.9 % (0.0-5.0) H 07/29/17 16:48 Basophils % 0.2 % (0.0-2.0) 07/29/17 16:48 Sodium 133 mEq/L (136-145) L 07/29/17 16:41 Potassium 3.6 mEq/L (3.5-5.1) 07/29/17 16:41 Chloride 102 mEq/L (98-107) 07/29/17 16:41 Carbon Dioxide 21.4 mEq/L (21.0-31.0) 07/29/17 16:41 Anion Gap 13.2 (7.0-16.0) 07/29/17 16:41 BUN 15 mg/dL (7-25) 07/29/17 16:41 Creatinine 1.3 mg/dL (0.7-1.3) 07/29/17 16:41 Est GFR ( Amer) > 60.0 ml/min (>90) 07/29/17 16:41 Est GFR (Non-Af Amer) 58.9 ml/min 07/29/17 16:41 BUN/Creatinine Ratio 11.5 07/29/17 16:41 Glucose 135 mg/dL (70-105) H 07/29/17 16:41 Hemoglobin A1c % 5.8 % (4.0-6.0) 07/29/17 16:48 Calcium 9.4 mg/dL (8.6-10.3) 07/29/17 16:41 Total Bilirubin 0.3 mg/dL (0.3-1.0) 07/29/17 16:41 AST 20 U/L (13-39) 07/29/17 16:41 ALT 22 U/L (7-52) 07/29/17 16:41 Alkaline Phosphatase 32 U/L (34-104) L 07/29/17 16:41 Total Protein 7.6 gm/dL (6.0-8.3) 07/29/17 16:41 Albumin 4.5 gm/dL (4.2-5.5) 07/29/17 16:41 Globulin 3.1 gm/dL 07/29/17 16:41 Albumin/Globulin Ratio 1.5 (1.0-1.8) 07/29/17 16:41 Triglycerides 265 mg/dL (<150) H 07/29/17 16:48 Cholesterol 252 mg/dL (<200) H 07/29/17 16:48 LDL Cholesterol Direct 176 mg/dL (75-193) 07/29/17 16:48 HDL Cholesterol 44 mg/dL (23-92) 07/29/17 16:48 TSH 2.03 uIU/ml (0.34-5.60) 07/29/17 16:48 Salicylates < 25.0 mg/L (30.0-100.0) L 07/29/17 16:48 Acetaminophen < 10.0 ug/mL (10.0-30.0) L 07/29/17 16:48 Carbamazepine 4.5 ug/ml (4.0-12.0) 07/29/17 16:48 Ethyl Alcohol < 10 mg/dL (0-10) 07/29/17 16:48 RPR NONREACTIVE (NONREACTIVE) 07/29/17 16:48 - Physical Exam Vitals and I&O: Vital Signs Temp 97.6 F 08/05/17 06:39 Pulse 86 08/05/17 06:39 Resp 20 08/05/17 06:39 BP 138/76 08/05/17 06:39 Pulse Ox 95 08/05/17 06:39 Intake & Output 08/04/17 08/05/17 08/05/17 18:59 06:59 18:59 Intake Total 1200 120 Balance 1200 120 Intake: Oral 1200 120 Other: # Voids 3 3 # Bowel Movements 0 Active Medications: Current Medications Acetaminophen (Tylenol) 650 mg PO Q4HR PRN PRN Reason: Mild Pain / Temp above 100 Stop: 09/27/17 16:26 Al Hydrox/Mg Hydrox/Simethicone (Maalox) 30 ml PO Q4HR PRN PRN Reason: GI DISTRESS Stop: 09/27/17 16:26 Carbamazepine (Tegretol) 200 mg PO TID [facility] PRN Reason: Protocol Stop: 09/28/17 08:59 Last Admin: 08/04/17 20:49 Dose: Not Given Citalopram Hydrobromide (Celexa) 20 mg PO DAILY [facility] PRN Reason: Protocol Stop: 09/28/17 08:59 Last Admin: 08/04/17 11:24 Dose: Not Given Docusate Sodium (Colace) 200 mg PO DAILY [facility] Stop: 09/28/17 08:59 Last Admin: 08/04/17 11:24 Dose: Not Given Fenofibrate (Tricor) 134 mg PO DAILY [facility] Stop: 09/28/17 08:59 Last Admin: 08/04/17 11:24 Dose: Not Given Lactulose (Cephulac) 20 gm PO BID [facility] Stop: 09/28/17 08:59 Last Admin: 08/04/17 18:03 Dose: Not Given Levetiracetam (Keppra) 1,000 mg PO HS [facility] Stop: 09/28/17 20:59 Last Admin: 08/04/17 20:49 Dose: Not Given Lorazepam (Ativan) 0.5 mg PO Q4HR PRN; Protocol PRN Reason: Agitation Stop: 08/28/17 16:26 Magnesium Hydroxide (Milk Of Magnesia) 30 ml PO HS PRN PRN Reason: Constipation Multivitamins/Vitamin C (Theragran) 1 tab PO DAILY [facility] Stop: 09/28/17 08:59 Last Admin: 08/04/17 18:03 Dose: Not Given Olanzapine (Zyprexa Zydis) 10 mg PO BID [facility] PRN Reason: Protocol Stop: 10/03/17 08:59 Last Admin: 08/04/17 18:03 Dose: Not Given Simvastatin (Zocor) 20 mg PO HS [facility] PRN Reason: Protocol Stop: 09/28/17 20:59 Last Admin: 08/04/17 20:49 Dose: Not Given Zolpidem Tartrate (Ambien) 5 mg PO HS PRN PRN Reason: Insomnia Stop: 09/27/17 16:26 - Procedures Procedures: Procedures Procedure Code Date BIOPSY EYELID & LID MARGIN 68168 10/04/98 EYELID BIOPSY 08.11 10/04/98 OTHER LOCAL DESTRUC SKIN 86.3 10/11/08 REMOVAL OF SKIN TAGS <W/15 83265 10/11/08 Nutritional Asmnt/Malnutr-PDOC - Dietary Evaluation Malnutrition Findings (Please click <Entered> for more info): Nutritional Asmnt/Malnutrition Start: 08/03/17 18: 54 Text: Status: Complete Freq: Document 08/03/17 18:54 LCHENG (Rec: 08/03/17 18:58 [email or web address] [id number]) Nutritional Asmnt/Malnutrition Patient General Information Nutritional Screening Moderate Risk Diagnosis psychosis Pertinent Medical Hx/Surgical Hx HTN, Dm, CAD, CHF, seizures Subjective Information Per records, PO intake 75%. Current Diet Order/ Nutrition Support [facility] soft chopped Pertinent Medications colace, theragran, seroquel Pertinent Labs 2/ Na 133, glucose 135, a1c 5 .8 Nutritional Hx/Data Height 1.88 m Height (Calculated Centimeters) 188.0 Current Weight (lbs) 114.305 kg Weight (Calculated Kilograms) 114.3 Weight (Calculated Grams) 029986.3 [place] Body Weight 190 Body Mass Index (BMI) 32.3 Weight Status Obese GI Symptoms GI Symptoms None Last BM 2/5 Difficult in: None Skin Integrity/Comment: intact Estimated Nutritional Goals BEE in Kcals: Adj wt of IBW Calories/Kcals/Kg 25-30 Kcals Calculated 7416-9935 Protein: Adj wt of IBW Protein g/k.8-1 Protein Calculated 74-93 Fluid: ml 4267-6907 Nutritional Problem No current Nutrition Prob Problem N/A Malnutrition Alert Protein-Calorie Malnutrition N/A Is there a minimum of two criteria No selected? Query Text:Check all the applicable criteria. A minimum of two criteria are recommended for diagnosis of either severe or non-severe malnutrition. Intervention/Recommendation Comments 1. Continue with current diet as ordered. 2. Monitor PO intake, wt, labs and skin integrity 3. F/U as low risk in 7 days, 08/10 Expected Outcomes/Goals Expected Outcomes/Goals 1. PO intake to meet at least 75% of nutritional needs. 2. Wt stability, skin to remain intact, labs to approach WNL.
[2017-08-05] MEDS: Fenofibrate, Micronized 134 mg Cap PO SCH (10:22)
[2017-08-05] MEDS: OLANZapine 10 mg Oral Disintegrating Tab PO SCH ×2 (10:23→17:18)
[2017-08-05] MEDS: Multivitamin Tab PO SCH (10:23)
[2017-08-05] MEDS: Lactulose 10 Gm/15 mL 30mL UDC PO SCH ×2 (10:23→17:18)
[2017-08-06] MEDS: Lactulose 10 Gm/15 mL 30mL UDC PO SCH ×2 (09:31→17:40)
[2017-08-06] MEDS: Fenofibrate, Micronized 134 mg Cap PO SCH (09:31)
[2017-08-06] MEDS: OLANZapine 10 mg Oral Disintegrating Tab PO SCH ×2 (09:32→17:40)
[2017-08-06] MEDS: Multivitamin Tab PO SCH (09:32)
--- NOTE | 2017-08-06 09:47 | Progress Notes ---
DATE: 08/03/2017 SUBJECTIVE: Chart reviewed and the patient interviewed. Also, discussed the patient's condition with the staff and reviewed records and labs. The patient is still in irritable and angry mood and the patient is still pacing around with his wheelchair. Also, is actively responding to stimuli and he is talking to himself. Also, is still preoccupied and not answering any of my questions. Also refused to go to his bed and last night he was awake and stayed outside until 3:00 a.[address]. in the hallway and in front of the nurses' station. He also refused to take medications for no apparent reason except his paranoia and delusions. ASSESSMENT: The patient is still psychotic and agitated. TREATMENT PLAN: Continue to monitor his behavior and his condition closely. Also, continue to work on his noncompliance with treatment recommendations. Also, working with trimming caser in regard to discharge plans and placement issue. JOB# [id number]
--- NOTE | 2017-08-06 11:22 | Progress Notes ---
DATE: 08/04/2017 Chart reviewed and the patient interviewed. Also discussed the patient's condition with the staff and I reviewed the records and labs. The patient continued to be in angry and in irritable mood. The patient also has been pacing up and down the unit with his wheelchair, regardless the instructions because of bothering others. The patient also is still rambling and difficult to understand. He also does not want to attend any meetings and after talking to him trying to cover him with medications, he agreed to take Zyprexa 10 mg twice a day and continue to follow up. [facility]# [id number]
--- NOTE | 2017-08-06 11:36 | Progress Notes ---
DATE: 08/05/2017 SUBJECTIVE: Chart reviewed and the patient interviewed. Also, discussed the patient's condition with the staff and reviewed records and labs. The patient is still restless and is still extremely agitated and in irritable mood, but at the same time the patient did take shower yesterday. He also is still in angry mood. Also, he has continued to pace up and down the unit with his wheelchair and is selectively mute and not answering most of my questions. He also refused to take medications for no apparent reason. I spoke with backup administrator in [facility] [place] again and he will try to get any information in regard to patient's sister who is his conservator and to fax the conservatorship paper, hope you can start to medicate the patient against his will. ASSESSMENT: The patient is still psychotic and paranoid. TREATMENT PLAN: We will continue to followup. Also, working on placement issue and discharge plans. JOB# [id number]
--- NOTE | 2017-08-06 12:10 | Progress Notes ---
DATE: 08/06/2017 SUBJECTIVE: Chart reviewed and the patient interviewed. Also discussed the patient's condition with the staff and reviewed records and labs. The patient is still extremely irritable and is still extremely agitated. The patient also is restless. The patient also is having difficulty following directions and he keeps going around with his wheelchair, hitting others and is still having difficulty following any directions. Also, is still irritable and angry mood and does not want to follow any directions. I spoke with the [facility] administrator of the [facility] where the patient was living and the patient will not be able to return back there, but also he said that his sister is a conservator and the paper of conservatorship faxed to the hospital and currently present in the chart. Also, [facility] might take the patient, but they need him to stable first and they need him to be on psychotropic medication that makes him stable. The patient's sister is his conservator and will try to give the patient Haldol Decanoate injection 25 mg per mL once every month. Discussed that with the staff and will try to get approval of the sisters to give him once a month injection of Haldol Decanoate. Also, the patient did take Haldol injection before and he is not allergic to Haldol according to staff. ASSESSMENT: The patient is still agitated and psychotic. TREATMENT PLAN: We will give Haldol Decanoate injection today of persistent approval to give him the medicine and will continue to follow up his behavior and his condition closely. JOB# [id number]
--- NOTE | 2017-08-06 17:28 | Internal Medicine Prog Note ---
Internal Medicine Subjective - Subjective Service Date: 08/06/17 Patient seen and examined:: with staff Patient is:: awake Per staff patient has:: no adverse event Internal Medicine Objective - Results Result Diagrams: 07/29/17 16:48 07/29/17 16:41 Recent Labs: Laboratory Last Values WBC 4.8 Th/cmm (4.8-10.8) 07/29/17 16:48 RBC 5.00 Mil/cmm (3.80-5.80) 07/29/17 16:48 Hgb 14.8 gm/dL (12-16) 07/29/17 16:48 Hct 44.8 % (41.0-60) 07/29/17 16:48 MCV 89.6 fl (80-99) 07/29/17 16:48 MCH 29.6 pg (27.0-31.0) 07/29/17 16:48 MCHC Differential 33.1 pg (28.0-36.0) 07/29/17 16:48 RDW 12.8 % (11.5-20.0) 07/29/17 16:48 Plt Count 263 Th/cmm (150-400) 07/29/17 16:48 MPV 8.2 fl 07/29/17 16:48 Neutrophils % 60.3 % (40.0-80.0) 07/29/17 16:48 Lymphocytes % 26.6 % (20.0-50.0) 07/29/17 16:48 Monocytes % 7.0 % (2.0-10.0) 07/29/17 16:48 Eosinophils % 5.9 % (0.0-5.0) H 07/29/17 16:48 Basophils % 0.2 % (0.0-2.0) 07/29/17 16:48 Sodium 133 mEq/L (136-145) L 07/29/17 16:41 Potassium 3.6 mEq/L (3.5-5.1) 07/29/17 16:41 Chloride 102 mEq/L (98-107) 07/29/17 16:41 Carbon Dioxide 21.4 mEq/L (21.0-31.0) 07/29/17 16:41 Anion Gap 13.2 (7.0-16.0) 07/29/17 16:41 BUN 15 mg/dL (7-25) 07/29/17 16:41 Creatinine 1.3 mg/dL (0.7-1.3) 07/29/17 16:41 Est GFR ( Amer) > 60.0 ml/min (>90) 07/29/17 16:41 Est GFR (Non-Af Amer) 58.9 ml/min 07/29/17 16:41 BUN/Creatinine Ratio 11.5 07/29/17 16:41 Glucose 135 mg/dL (70-105) H 07/29/17 16:41 Hemoglobin A1c % 5.8 % (4.0-6.0) 07/29/17 16:48 Calcium 9.4 mg/dL (8.6-10.3) 07/29/17 16:41 Total Bilirubin 0.3 mg/dL (0.3-1.0) 07/29/17 16:41 AST 20 U/L (13-39) 07/29/17 16:41 ALT 22 U/L (7-52) 07/29/17 16:41 Alkaline Phosphatase 32 U/L (34-104) L 07/29/17 16:41 Total Protein 7.6 gm/dL (6.0-8.3) 07/29/17 16:41 Albumin 4.5 gm/dL (4.2-5.5) 07/29/17 16:41 Globulin 3.1 gm/dL 07/29/17 16:41 Albumin/Globulin Ratio 1.5 (1.0-1.8) 07/29/17 16:41 Triglycerides 265 mg/dL (<150) H 07/29/17 16:48 Cholesterol 252 mg/dL (<200) H 07/29/17 16:48 LDL Cholesterol Direct 176 mg/dL (75-193) 07/29/17 16:48 HDL Cholesterol 44 mg/dL (23-92) 07/29/17 16:48 TSH 2.03 uIU/ml (0.34-5.60) 07/29/17 16:48 Salicylates < 25.0 mg/L (30.0-100.0) L 07/29/17 16:48 Acetaminophen < 10.0 ug/mL (10.0-30.0) L 07/29/17 16:48 Carbamazepine 4.5 ug/ml (4.0-12.0) 07/29/17 16:48 Ethyl Alcohol < 10 mg/dL (0-10) 07/29/17 16:48 RPR NONREACTIVE (NONREACTIVE) 07/29/17 16:48 - Physical Exam Vitals and I&O: Vital Signs Temp 97.0 F 08/06/17 14:30 Pulse 89 08/06/17 14:30 Resp 19 08/06/17 14:30 BP 153/92 08/06/17 14:30 Pulse Ox 97 08/06/17 14:30 Intake & Output 08/05/17 08/06/17 08/06/17 18:59 06:59 18:59 Intake Total 1200 Balance 1200 Intake: Oral 1200 Other: # Bowel Movements 1 Active Medications: Current Medications Acetaminophen (Tylenol) 650 mg PO Q4HR PRN PRN Reason: Mild Pain / Temp above 100 Stop: 09/27/17 16:26 Al Hydrox/Mg Hydrox/Simethicone (Maalox) 30 ml PO Q4HR PRN PRN Reason: GI DISTRESS Stop: 09/27/17 16:26 Carbamazepine (Tegretol) 200 mg PO TID BLAINE PRN Reason: Protocol Stop: 09/28/17 08:59 Last Admin: 08/06/17 13:19 Dose: 200 mg Citalopram Hydrobromide (Celexa) 20 mg PO DAILY BLAINE PRN Reason: Protocol Stop: 09/28/17 08:59 Last Admin: 08/06/17 09:31 Dose: Not Given Docusate Sodium (Colace) 200 mg PO DAILY BLAINE Stop: 09/28/17 08:59 Last Admin: 08/06/17 09:31 Dose: Not Given Fenofibrate (Tricor) 134 mg PO DAILY BLAINE Stop: 09/28/17 08:59 Last Admin: 08/06/17 09:31 Dose: Not Given Haloperidol Decanoate (Haldol Dec) 25 mg IM QMONTH BLAINE PRN Reason: Protocol Stop: 10/05/17 06:29 Lactulose (Cephulac) 20 gm PO BID BLAINE Stop: 09/28/17 08:59 Last Admin: 08/06/17 09:31 Dose: Not Given Levetiracetam (Keppra) 1,000 mg PO HS [facility] Stop: 09/28/17 20:59 Last Admin: 08/05/17 21:00 Dose: Not Given Lorazepam (Ativan) 0.5 mg PO Q4HR PRN; Protocol PRN Reason: Agitation Stop: 08/28/17 16:26 Last Admin: 08/06/17 13:18 Dose: 0.5 mg Magnesium Hydroxide (Milk Of Magnesia) 30 ml PO HS PRN PRN Reason: Constipation Multivitamins/Vitamin C (Theragran) 1 tab PO DAILY BLAINE Stop: 09/28/17 08:59 Last Admin: 08/06/17 09:32 Dose: Not Given Olanzapine (Zyprexa Zydis) 10 mg PO BID BLAINE PRN Reason: Protocol Stop: 10/03/17 08:59 Last Admin: 08/06/17 09:32 Dose: Not Given Simvastatin (Zocor) 20 mg PO HS BLAINE PRN Reason: Protocol Stop: 09/28/17 20:59 Last Admin: 08/05/17 21:00 Dose: Not Given Zolpidem Tartrate (Ambien) 5 mg PO HS PRN PRN Reason: Insomnia Stop: 09/27/17 16:26 General: alert HEENT: NC/AT, PERRLA Neck: Supple Lungs: CTAB Abdomen: soft, non-tender Neurological: alert - Procedures Procedures: Procedures Procedure Code Date BIOPSY EYELID & LID MARGIN 11095 10/04/98 EYELID BIOPSY 08.11 10/04/98 OTHER LOCAL DESTRUC SKIN 86.3 10/11/08 REMOVAL OF SKIN TAGS <W/15 72626 10/11/08 Internal Medicine Assmt/Plan - Assessment Assessment: agitation htn seizure chf - Plan Plan: seizure precautions continue current orders Nutritional Asmnt/Malnutr-PDOC - Dietary Evaluation Malnutrition Findings (Please click <Entered> for more info): Nutritional Asmnt/Malnutrition Start: 08/03/17 18: 54 Text: Status: Complete Freq: Document 08/03/17 18:54 EYALG (Rec: 08/03/17 18:58 [id number]) Nutritional Asmnt/Malnutrition Patient General Information Nutritional Screening Moderate Risk Diagnosis psychosis Pertinent Medical Hx/Surgical Hx HTN, Dm, CAD, CHF, seizures Subjective Information Per records, PO intake 75%. Current Diet Order/ Nutrition Support mech soft chopped Pertinent Medications colace, theragran, seroquel Pertinent Labs 2/1 Na 133, glucose 135, a1c 5 .8 Nutritional Hx/Data Height 6 ft 2 in Height (Calculated Centimeters) 188.0 Current Weight (lbs) 252 lb Weight (Calculated Kilograms) 114.3 Weight (Calculated Grams) 670193.3 [place] Body Weight 190 Body Mass Index (BMI) 32.3 Weight Status Obese GI Symptoms GI Symptoms None Last BM 2/5 Difficult in: None Skin Integrity/Comment: intact Estimated Nutritional Goals BEE in Kcals: Adj wt of IBW Calories/Kcals/Kg 25-30 Kcals Calculated 5355-7363 Protein: Adj wt of IBW Protein g/k.8-1 Protein Calculated 74-93 Fluid: ml 2801-5212 Nutritional Problem No current Nutrition Prob Problem N/A Malnutrition Alert Protein-Calorie Malnutrition N/A Is there a minimum of two criteria No selected? Query Text:Check all the applicable criteria. A minimum of two criteria are recommended for diagnosis of either severe or non-severe malnutrition. Intervention/Recommendation Comments 1. Continue with current diet as ordered. 2. Monitor PO intake, wt, labs and skin integrity 3. F/U as low risk in 7 days, 08/10 Expected Outcomes/Goals Expected Outcomes/Goals 1. PO intake to meet at least 75% of nutritional needs. 2. Wt stability, skin to remain intact, labs to approach WNL.
[2017-08-07] MEDS: Lactulose 10 Gm/15 mL 30mL UDC PO SCH ×2 (09:37→17:34)
[2017-08-07] MEDS: OLANZapine 10 mg Oral Disintegrating Tab PO SCH ×2 (09:37→17:34)
[2017-08-07] MEDS: Multivitamin Tab PO SCH (09:37)
[2017-08-07] MEDS: Fenofibrate, Micronized 134 mg Cap PO SCH (09:38)
--- NOTE | 2017-08-07 18:27 | Progress Notes ---
DATE: 08/07/2017 SUBJECTIVE: The patient is currently in the hospital, coming in from [place], increased psychosis, poor med compliance, combative, aggressive behaviors, irritable, agitated. On [id number], the patient sleep erratic, med compliance, noted to be impulsive, somewhat unpredictable, still symptomatic. Staff noting he remains at times agitated and unruly. Apparently, the patient has conserved according to notes written by Dr. Bauer. Medications were reviewed. No side effects noted. ASSESSMENT: The patient remains agitated, still unruly, impulsive, unpredictable. PLAN: Continue to monitor. No overt side effects noted. We will monitor and follow up. JOB# [id number]
--- NOTE | 2017-08-08 06:40 | Progress Notes ---
DATE: 08/08/2017 SUBJECTIVE: The patient is coming in due to increased psychosis, poor med compliance, combative behaviors, aggressive behaviors, still unruly at times, fighting with staff, does not want to be taken care of, still fighting, but more redirectable, still somewhat agitated. The patient apparently conserved. Under notes by Dr. Bauer, concerns for impulsivity, staff very cautious when changing him. Medications reviewed. The patient noted to be sleeping well. ASSESSMENT: The patient is still angry, irritable, still yelling at times, unruly. He is awake and engaged on exam. PLAN: We will continue to monitor. Continue medications. He is currently on Zyprexa, Haldol Decanoate and Celexa. JOB# [id number]
[2017-08-08] MEDS: Lactulose 10 Gm/15 mL 30mL UDC PO SCH ×2 (09:22→17:19)
[2017-08-08] MEDS: OLANZapine 10 mg Oral Disintegrating Tab PO SCH ×2 (09:22→17:19)
[2017-08-08] MEDS: Fenofibrate, Micronized 134 mg Cap PO SCH (09:22)
[2017-08-08] MEDS: Multivitamin Tab PO SCH (09:22)
--- NOTE | 2017-08-08 10:26 | General Progress Note ---
Subjective - Review of Systems Events since last encounter: awake in no distress still irritable Objective - Results Result Diagrams: 07/29/17 16:48 07/29/17 16:41 Recent Labs: Laboratory Last Values WBC 4.8 Th/cmm (4.8-10.8) 07/29/17 16:48 RBC 5.00 Mil/cmm (3.80-5.80) 07/29/17 16:48 Hgb 14.8 gm/dL (12-16) 07/29/17 16:48 Hct 44.8 % (41.0-60) 07/29/17 16:48 MCV 89.6 fl (80-99) 07/29/17 16:48 MCH 29.6 pg (27.0-31.0) 07/29/17 16:48 MCHC Differential 33.1 pg (28.0-36.0) 07/29/17 16:48 RDW 12.8 % (11.5-20.0) 07/29/17 16:48 Plt Count 263 Th/cmm (150-400) 07/29/17 16:48 MPV 8.2 fl 07/29/17 16:48 Neutrophils % 60.3 % (40.0-80.0) 07/29/17 16:48 Lymphocytes % 26.6 % (20.0-50.0) 07/29/17 16:48 Monocytes % 7.0 % (2.0-10.0) 07/29/17 16:48 Eosinophils % 5.9 % (0.0-5.0) H 07/29/17 16:48 Basophils % 0.2 % (0.0-2.0) 07/29/17 16:48 Sodium 133 mEq/L (136-145) L 07/29/17 16:41 Potassium 3.6 mEq/L (3.5-5.1) 07/29/17 16:41 Chloride 102 mEq/L (98-107) 07/29/17 16:41 Carbon Dioxide 21.4 mEq/L (21.0-31.0) 07/29/17 16:41 Anion Gap 13.2 (7.0-16.0) 07/29/17 16:41 BUN 15 mg/dL (7-25) 07/29/17 16:41 Creatinine 1.3 mg/dL (0.7-1.3) 07/29/17 16:41 Est GFR ( Amer) > 60.0 ml/min (>90) 07/29/17 16:41 Est GFR (Non-Af Amer) 58.9 ml/min 07/29/17 16:41 BUN/Creatinine Ratio 11.5 07/29/17 16:41 Glucose 135 mg/dL (70-105) H 07/29/17 16:41 Hemoglobin A1c % 5.8 % (4.0-6.0) 07/29/17 16:48 Calcium 9.4 mg/dL (8.6-10.3) 07/29/17 16:41 Total Bilirubin 0.3 mg/dL (0.3-1.0) 07/29/17 16:41 AST 20 U/L (13-39) 07/29/17 16:41 ALT 22 U/L (7-52) 07/29/17 16:41 Alkaline Phosphatase 32 U/L (34-104) L 07/29/17 16:41 Total Protein 7.6 gm/dL (6.0-8.3) 07/29/17 16:41 Albumin 4.5 gm/dL (4.2-5.5) 07/29/17 16:41 Globulin 3.1 gm/dL 07/29/17 16:41 Albumin/Globulin Ratio 1.5 (1.0-1.8) 07/29/17 16:41 Triglycerides 265 mg/dL (<150) H 07/29/17 16:48 Cholesterol 252 mg/dL (<200) H 07/29/17 16:48 LDL Cholesterol Direct 176 mg/dL (75-193) 07/29/17 16:48 HDL Cholesterol 44 mg/dL (23-92) 07/29/17 16:48 TSH 2.03 uIU/ml (0.34-5.60) 07/29/17 16:48 Salicylates < 25.0 mg/L (30.0-100.0) L 07/29/17 16:48 Acetaminophen < 10.0 ug/mL (10.0-30.0) L 07/29/17 16:48 Carbamazepine 4.5 ug/ml (4.0-12.0) 07/29/17 16:48 Ethyl Alcohol < 10 mg/dL (0-10) 07/29/17 16:48 RPR NONREACTIVE (NONREACTIVE) 07/29/17 16:48 - Physical Exam Vitals and I&O: Vital Signs Temp 97.6 F 08/08/17 06:30 Pulse 82 08/08/17 06:30 Resp 19 08/08/17 06:30 BP 138/77 08/08/17 06:30 Pulse Ox 97 08/08/17 06:30 Intake & Output 08/07/17 08/08/17 08/08/17 18:59 06:59 18:59 Intake Total 700 120 Balance 700 120 Intake: Oral 700 120 Other: # Voids 3 3 # Bowel Movements 0 Active Medications: Current Medications Acetaminophen (Tylenol) 650 mg PO Q4HR PRN PRN Reason: Mild Pain / Temp above 100 Stop: 09/27/17 16:26 Al Hydrox/Mg Hydrox/Simethicone (Maalox) 30 ml PO Q4HR PRN PRN Reason: GI DISTRESS Stop: 09/27/17 16:26 Carbamazepine (Tegretol) 200 mg PO TID BLAINE PRN Reason: Protocol Stop: 09/28/17 08:59 Last Admin: 08/08/17 09:22 Dose: 200 mg Citalopram Hydrobromide (Celexa) 20 mg PO DAILY BLAINE PRN Reason: Protocol Stop: 09/28/17 08:59 Last Admin: 08/08/17 09:22 Dose: 20 mg Docusate Sodium (Colace) 200 mg PO DAILY BLAINE Stop: 09/28/17 08:59 Last Admin: 08/08/17 09:22 Dose: 200 mg Fenofibrate (Tricor) 134 mg PO DAILY BLAINE Stop: 09/28/17 08:59 Last Admin: 08/08/17 09:22 Dose: 134 mg Haloperidol Decanoate (Haldol Dec) 25 mg IM QMONTH BLAINE PRN Reason: Protocol Stop: 10/06/17 09:59 Last Admin: 08/07/17 14:44 Dose: Not Given Lactulose (Cephulac) 20 gm PO BID BLAINE Stop: 09/28/17 08:59 Last Admin: 08/08/17 09:22 Dose: 20 gm Levetiracetam (Keppra) 1,000 mg PO HS [facility] Stop: 09/28/17 20:59 Last Admin: 08/07/17 20:01 Dose: Not Given Lorazepam (Ativan) 0.5 mg PO Q4HR PRN; Protocol PRN Reason: Agitation Stop: 08/28/17 16:26 Last Admin: 08/06/17 17:40 Dose: 0.5 mg Multivitamins/Vitamin C (Theragran) 1 tab PO DAILY BLAINE Stop: 09/28/17 08:59 Last Admin: 08/08/17 09:22 Dose: 1 tab Olanzapine (Zyprexa Zydis) 10 mg PO BID BLAINE PRN Reason: Protocol Stop: 10/03/17 08:59 Last Admin: 08/08/17 09:22 Dose: 10 mg Simvastatin (Zocor) 20 mg PO HS BLAINE PRN Reason: Protocol Stop: 09/28/17 20:59 Last Admin: 08/07/17 20:01 Dose: Not Given Zolpidem Tartrate (Ambien) 5 mg PO HS PRN PRN Reason: Insomnia Stop: 09/27/17 16:26 Last Admin: 08/06/17 21:03 Dose: 5 mg - Procedures Procedures: Procedures Procedure Code Date BIOPSY EYELID & LID MARGIN 58259 10/04/98 EYELID BIOPSY 08.11 10/04/98 OTHER LOCAL DESTRUC SKIN 86.3 10/11/08 REMOVAL OF SKIN TAGS <W/15 00513 10/11/08 Nutritional Asmnt/Malnutr-PDOC - Dietary Evaluation Malnutrition Findings (Please click <Entered> for more info): Nutritional Asmnt/Malnutrition Start: 08/03/17 18: 54 Text: Status: Complete Freq: Document 08/03/17 18:54 SHAWN (Rec: 08/03/17 18:58 HEN [email or web address]) Nutritional Asmnt/Malnutrition Patient General Information Nutritional Screening Moderate Risk Diagnosis psychosis Pertinent Medical Hx/Surgical Hx HTN, Dm, CAD, CHF, seizures Subjective Information Per records, PO intake 75%. Current Diet Order/ Nutrition Support [facility] soft chopped Pertinent Medications colace, theragran, seroquel Pertinent Labs 07/29 Na 133, glucose 135, a1c 5 .8 Nutritional Hx/Data Height 1.88 m Height (Calculated Centimeters) 188.0 Current Weight (lbs) 114.305 kg Weight (Calculated Kilograms) 114.3 Weight (Calculated Grams) 590395.3 [place] Body Weight 190 Body Mass Index (BMI) 32.3 Weight Status Obese GI Symptoms GI Symptoms None Last BM 2/5 Difficult in: None Skin Integrity/Comment: intact Estimated Nutritional Goals BEE in Kcals: Adj wt of IBW Calories/Kcals/Kg 25-30 Kcals Calculated 0067-0985 Protein: Adj wt of IBW Protein g/k.8-1 Protein Calculated 74-93 Fluid: ml 5287-7849 Nutritional Problem No current Nutrition Prob Problem N/A Malnutrition Alert Protein-Calorie Malnutrition N/A Is there a minimum of two criteria No selected? Query Text:Check all the applicable criteria. A minimum of two criteria are recommended for diagnosis of either severe or non-severe malnutrition. Intervention/Recommendation Comments 1. Continue with current diet as ordered. 2. Monitor PO intake, wt, labs and skin integrity 3. F/U as low risk in 7 days, 08/10 Expected Outcomes/Goals Expected Outcomes/Goals 1. PO intake to meet at least 75% of nutritional needs. 2. Wt stability, skin to remain intact, labs to approach WNL.
[2017-08-09] MEDS: Fenofibrate, Micronized 134 mg Cap PO SCH (09:58)
[2017-08-09] MEDS: Multivitamin Tab PO SCH (09:58)
[2017-08-09] MEDS: OLANZapine 10 mg Oral Disintegrating Tab PO SCH ×2 (09:58→17:58)
--- NOTE | 2017-08-09 16:14 | General Progress Note ---
Subjective - Review of Systems Events since last encounter: awake in no distress Objective - Results Result Diagrams: 07/29/17 16:48 07/29/17 16:41 Recent Labs: Laboratory Last Values WBC 4.8 Th/cmm (4.8-10.8) 07/29/17 16:48 RBC 5.00 Mil/cmm (3.80-5.80) 07/29/17 16:48 Hgb 14.8 gm/dL (12-16) 07/29/17 16:48 Hct 44.8 % (41.0-60) 07/29/17 16:48 MCV 89.6 fl (80-99) 07/29/17 16:48 MCH 29.6 pg (27.0-31.0) 07/29/17 16:48 MCHC Differential 33.1 pg (28.0-36.0) 07/29/17 16:48 RDW 12.8 % (11.5-20.0) 07/29/17 16:48 Plt Count 263 Th/cmm (150-400) 07/29/17 16:48 MPV 8.2 fl 07/29/17 16:48 Neutrophils % 60.3 % (40.0-80.0) 07/29/17 16:48 Lymphocytes % 26.6 % (20.0-50.0) 07/29/17 16:48 Monocytes % 7.0 % (2.0-10.0) 07/29/17 16:48 Eosinophils % 5.9 % (0.0-5.0) H 07/29/17 16:48 Basophils % 0.2 % (0.0-2.0) 07/29/17 16:48 Sodium 133 mEq/L (136-145) L 07/29/17 16:41 Potassium 3.6 mEq/L (3.5-5.1) 07/29/17 16:41 Chloride 102 mEq/L (98-107) 07/29/17 16:41 Carbon Dioxide 21.4 mEq/L (21.0-31.0) 07/29/17 16:41 Anion Gap 13.2 (7.0-16.0) 07/29/17 16:41 BUN 15 mg/dL (7-25) 07/29/17 16:41 Creatinine 1.3 mg/dL (0.7-1.3) 07/29/17 16:41 Est GFR ( Amer) > 60.0 ml/min (>90) 07/29/17 16:41 Est GFR (Non-Af Amer) 58.9 ml/min 07/29/17 16:41 BUN/Creatinine Ratio 11.5 07/29/17 16:41 Glucose 135 mg/dL (70-105) H 07/29/17 16:41 Hemoglobin A1c % 5.8 % (4.0-6.0) 07/29/17 16:48 Calcium 9.4 mg/dL (8.6-10.3) 07/29/17 16:41 Total Bilirubin 0.3 mg/dL (0.3-1.0) 07/29/17 16:41 AST 20 U/L (13-39) 07/29/17 16:41 ALT 22 U/L (7-52) 07/29/17 16:41 Alkaline Phosphatase 32 U/L (34-104) L 07/29/17 16:41 Total Protein 7.6 gm/dL (6.0-8.3) 07/29/17 16:41 Albumin 4.5 gm/dL (4.2-5.5) 07/29/17 16:41 Globulin 3.1 gm/dL 07/29/17 16:41 Albumin/Globulin Ratio 1.5 (1.0-1.8) 07/29/17 16:41 Triglycerides 265 mg/dL (<150) H 07/29/17 16:48 Cholesterol 252 mg/dL (<200) H 07/29/17 16:48 LDL Cholesterol Direct 176 mg/dL (75-193) 07/29/17 16:48 HDL Cholesterol 44 mg/dL (23-92) 07/29/17 16:48 TSH 2.03 uIU/ml (0.34-5.60) 07/29/17 16:48 Salicylates < 25.0 mg/L (30.0-100.0) L 07/29/17 16:48 Acetaminophen < 10.0 ug/mL (10.0-30.0) L 07/29/17 16:48 Carbamazepine 4.5 ug/ml (4.0-12.0) 07/29/17 16:48 Ethyl Alcohol < 10 mg/dL (0-10) 07/29/17 16:48 RPR NONREACTIVE (NONREACTIVE) 07/29/17 16:48 - Physical Exam Vitals and I&O: Vital Signs Temp 97.4 F 08/09/17 14:53 Pulse 85 08/09/17 14:53 Resp 19 08/09/17 14:53 BP 142/85 08/09/17 14:53 Pulse Ox 96 08/09/17 14:53 Intake & Output 08/08/17 08/09/17 08/09/17 18:59 06:59 18:59 Intake Total 700 240 Balance 700 240 Intake: Oral 700 240 Other: # Voids 3 2 # Bowel Movements 0 Active Medications: Current Medications Acetaminophen (Tylenol) 650 mg PO Q4HR PRN PRN Reason: Mild Pain / Temp above 100 Stop: 09/27/17 16:26 Al Hydrox/Mg Hydrox/Simethicone (Maalox) 30 ml PO Q4HR PRN PRN Reason: GI DISTRESS Stop: 09/27/17 16:26 Carbamazepine (Tegretol) 200 mg PO TID BLAINE PRN Reason: Protocol Stop: 09/28/17 08:59 Last Admin: 08/09/17 09:58 Dose: 200 mg Citalopram Hydrobromide (Celexa) 20 mg PO DAILY BLAINE PRN Reason: Protocol Stop: 09/28/17 08:59 Last Admin: 08/09/17 09:58 Dose: 20 mg Docusate Sodium (Colace) 200 mg PO DAILY BLAINE Stop: 09/28/17 08:59 Last Admin: 08/09/17 09:58 Dose: 200 mg Fenofibrate (Tricor) 134 mg PO DAILY BLAINE Stop: 09/28/17 08:59 Last Admin: 08/09/17 09:58 Dose: 134 mg Haloperidol Decanoate (Haldol Dec) 25 mg IM QMONTH BLAINE PRN Reason: Protocol Stop: 10/06/17 09:59 Last Admin: 08/08/17 14:58 Dose: 25 mg Lactulose (Cephulac) 20 gm PO BID BLAINE Stop: 09/28/17 08:59 Last Admin: 08/08/17 17:19 Dose: 20 gm Levetiracetam (Keppra) 1,000 mg PO HS BLAINE Stop: 09/28/17 20:59 Last Admin: 08/08/17 21:51 Dose: Not Given Lorazepam (Ativan) 0.5 mg PO Q4HR PRN; Protocol PRN Reason: Agitation Stop: 08/28/17 16:26 Last Admin: 08/06/17 17:40 Dose: 0.5 mg Multivitamins/Vitamin C (Theragran) 1 tab PO DAILY BLAINE Stop: 09/28/17 08:59 Last Admin: 08/09/17 09:58 Dose: 1 tab Olanzapine (Zyprexa Zydis) 10 mg PO BID BLAINE PRN Reason: Protocol Stop: 10/03/17 08:59 Last Admin: 08/09/17 09:58 Dose: 10 mg Simvastatin (Zocor) 20 mg PO HS BLAINE PRN Reason: Protocol Stop: 09/28/17 20:59 Last Admin: 08/08/17 21:51 Dose: Not Given Zolpidem Tartrate (Ambien) 5 mg PO HS PRN PRN Reason: Insomnia Stop: 09/27/17 16:26 Last Admin: 08/06/17 21:03 Dose: 5 mg - Procedures Procedures: Procedures Procedure Code Date BIOPSY EYELID & LID MARGIN 36981 10/04/98 EYELID BIOPSY 08.11 10/04/98 OTHER LOCAL DESTRUC SKIN 86.3 10/11/08 REMOVAL OF SKIN TAGS <W/15 25320 10/11/08 Nutritional Asmnt/Malnutr-PDOC - Dietary Evaluation Malnutrition Findings (Please click <Entered> for more info): Nutritional Asmnt/Malnutrition Start: 08/03/17 18: 54 Text: Status: Complete Freq: Document 08/03/17 18:54 SHAWN (Rec: 08/03/17 18:58 HEN [id number]) Nutritional Asmnt/Malnutrition Patient General Information Nutritional Screening Moderate Risk Diagnosis psychosis Pertinent Medical Hx/Surgical Hx HTN, Dm, CAD, CHF, seizures Subjective Information Per records, PO intake 75%. Current Diet Order/ Nutrition Support [facility] soft chopped Pertinent Medications colace, theragran, seroquel Pertinent Labs 2 Na 133, glucose 135, a1c 5 .8 Nutritional Hx/Data Height 1.88 m Height (Calculated Centimeters) 188.0 Current Weight (lbs) 114.305 kg Weight (Calculated Kilograms) 114.3 Weight (Calculated Grams) 548496.3 [place] Body Weight 190 Body Mass Index (BMI) 32.3 Weight Status Obese GI Symptoms GI Symptoms None Last BM 2/5 Difficult in: None Skin Integrity/Comment: intact Estimated Nutritional Goals BEE in Kcals: Adj wt of IBW Calories/Kcals/Kg 25-30 Kcals Calculated 3315-9365 Protein: Adj wt of IBW Protein g/k.8-1 Protein Calculated 74-93 Fluid: ml 7010-2502 Nutritional Problem No current Nutrition Prob Problem N/A Malnutrition Alert Protein-Calorie Malnutrition N/A Is there a minimum of two criteria No selected? Query Text:Check all the applicable criteria. A minimum of two criteria are recommended for diagnosis of either severe or non-severe malnutrition. Intervention/Recommendation Comments 1. Continue with current diet as ordered. 2. Monitor PO intake, wt, labs and skin integrity 3. F/U as low risk in 7 days, 08/10 Expected Outcomes/Goals Expected Outcomes/Goals 1. PO intake to meet at least 75% of nutritional needs. 2. Wt stability, skin to remain intact, labs to approach WNL.
[2017-08-09] MEDS: Lactulose 10 Gm/15 mL 30mL UDC PO SCH (17:58)
--- NOTE | 2017-08-10 07:07 | Progress Notes ---
DATE: 08/09/2017 The patient is coming in due to increased psychosis, poor medication compliance, combative behaviors, aggressive behaviors. Still unruly at times, fighting with staff. The patient delusional, stating that he owns the hospital that he brought the hospital. He is apparently conserved, noted to be impulsive, unpredictable, very poor historian. The patient originally came to the hospital, transferred from [place], combative and aggressive. MEDICATIONS: Reviewed. ASSESSMENT: The patient remains isolative, occlusive, delusional, grandiose, impulsive and unpredictable. PLAN: We will continue to monitor, continue to target his psychotic symptoms, titrate and adjust medications. JOB# [id number]
[2017-08-10] MEDS: OLANZapine 10 mg Oral Disintegrating Tab PO SCH ×2 (09:58→10:00)
[2017-08-10] MEDS: Multivitamin Tab PO SCH ×2 (09:59→10:00)
[2017-08-10] MEDS: Fenofibrate, Micronized 134 mg Cap PO SCH ×2 (09:59→10:00)
[2017-08-10] MEDS: Lactulose 10 Gm/15 mL 30mL UDC PO SCH ×2 (10:00→16:53)
--- NOTE | 2017-08-10 11:38 | Internal Medicine Prog Note ---
Internal Medicine Subjective - Subjective Service Date: 08/10/17 Patient is:: awake Per staff patient has:: no adverse event Internal Medicine Objective - Results Result Diagrams: 07/29/17 16:48 07/29/17 16:41 Recent Labs: Laboratory Last Values WBC 4.8 Th/cmm (4.8-10.8) 07/29/17 16:48 RBC 5.00 Mil/cmm (3.80-5.80) 07/29/17 16:48 Hgb 14.8 gm/dL (12-16) 07/29/17 16:48 Hct 44.8 % (41.0-60) 07/29/17 16:48 MCV 89.6 fl (80-99) 07/29/17 16:48 MCH 29.6 pg (27.0-31.0) 07/29/17 16:48 MCHC Differential 33.1 pg (28.0-36.0) 07/29/17 16:48 RDW 12.8 % (11.5-20.0) 07/29/17 16:48 Plt Count 263 Th/cmm (150-400) 07/29/17 16:48 MPV 8.2 fl 07/29/17 16:48 Neutrophils % 60.3 % (40.0-80.0) 07/29/17 16:48 Lymphocytes % 26.6 % (20.0-50.0) 07/29/17 16:48 Monocytes % 7.0 % (2.0-10.0) 07/29/17 16:48 Eosinophils % 5.9 % (0.0-5.0) H 07/29/17 16:48 Basophils % 0.2 % (0.0-2.0) 07/29/17 16:48 Sodium 133 mEq/L (136-145) L 07/29/17 16:41 Potassium 3.6 mEq/L (3.5-5.1) 07/29/17 16:41 Chloride 102 mEq/L (98-107) 07/29/17 16:41 Carbon Dioxide 21.4 mEq/L (21.0-31.0) 07/29/17 16:41 Anion Gap 13.2 (7.0-16.0) 07/29/17 16:41 BUN 15 mg/dL (7-25) 07/29/17 16:41 Creatinine 1.3 mg/dL (0.7-1.3) 07/29/17 16:41 Est GFR ( Amer) > 60.0 ml/min (>90) 07/29/17 16:41 Est GFR (Non-Af Amer) 58.9 ml/min 07/29/17 16:41 BUN/Creatinine Ratio 11.5 07/29/17 16:41 Glucose 135 mg/dL (70-105) H 07/29/17 16:41 Hemoglobin A1c % 5.8 % (4.0-6.0) 07/29/17 16:48 Calcium 9.4 mg/dL (8.6-10.3) 07/29/17 16:41 Total Bilirubin 0.3 mg/dL (0.3-1.0) 07/29/17 16:41 AST 20 U/L (13-39) 07/29/17 16:41 ALT 22 U/L (7-52) 07/29/17 16:41 Alkaline Phosphatase 32 U/L (34-104) L 07/29/17 16:41 Total Protein 7.6 gm/dL (6.0-8.3) 07/29/17 16:41 Albumin 4.5 gm/dL (4.2-5.5) 07/29/17 16:41 Globulin 3.1 gm/dL 07/29/17 16:41 Albumin/Globulin Ratio 1.5 (1.0-1.8) 07/29/17 16:41 Triglycerides 265 mg/dL (<150) H 07/29/17 16:48 Cholesterol 252 mg/dL (<200) H 07/29/17 16:48 LDL Cholesterol Direct 176 mg/dL (75-193) 07/29/17 16:48 HDL Cholesterol 44 mg/dL (23-92) 07/29/17 16:48 TSH 2.03 uIU/ml (0.34-5.60) 07/29/17 16:48 Salicylates < 25.0 mg/L (30.0-100.0) L 07/29/17 16:48 Acetaminophen < 10.0 ug/mL (10.0-30.0) L 07/29/17 16:48 Carbamazepine 4.5 ug/ml (4.0-12.0) 07/29/17 16:48 Ethyl Alcohol < 10 mg/dL (0-10) 07/29/17 16:48 RPR NONREACTIVE (NONREACTIVE) 07/29/17 16:48 - Physical Exam Vitals and I&O: Vital Signs Temp 98 F 08/10/17 06:07 Pulse 93 08/10/17 06:07 Resp 18 08/10/17 06:07 BP 142/86 08/10/17 06:07 Pulse Ox 94 08/10/17 06:07 Intake & Output 08/09/17 08/10/17 08/10/17 18:59 06:59 18:59 Intake Total 1000 240 Balance 1000 240 Intake: Oral 1000 240 Other: # Voids 4 3 # Bowel Movements 0 0 Active Medications: Current Medications Acetaminophen (Tylenol) 650 mg PO Q4HR PRN PRN Reason: Mild Pain / Temp above 100 Stop: 09/27/17 16:26 Al Hydrox/Mg Hydrox/Simethicone (Maalox) 30 ml PO Q4HR PRN PRN Reason: GI DISTRESS Stop: 09/27/17 16:26 Carbamazepine (Tegretol) 200 mg PO TID BLAINE PRN Reason: Protocol Stop: 09/28/17 08:59 Last Admin: 08/10/17 10:00 Dose: Not Given Citalopram Hydrobromide (Celexa) 20 mg PO DAILY BLAINE PRN Reason: Protocol Stop: 09/28/17 08:59 Last Admin: 08/10/17 10:00 Dose: Not Given Docusate Sodium (Colace) 200 mg PO DAILY [facility] Stop: 09/28/17 08:59 Last Admin: 08/10/17 10:00 Dose: 200 mg Fenofibrate (Tricor) 134 mg PO DAILY [facility]LA[facility] Stop: 09/28/17 08:59 Last Admin: 08/10/17 10:00 Dose: Not Given Haloperidol Decanoate (Haldol Dec) 25 mg IM QMONTH BLAINE PRN Reason: Protocol Stop: 10/06/17 09:59 Last Admin: 08/08/17 14:58 Dose: 25 mg Lactulose (Cephulac) 20 gm PO BID [facility] Stop: 09/28/17 08:59 Last Admin: 08/10/17 10:00 Dose: Not Given Levetiracetam (Keppra) 1,000 mg PO HS BLAINE Stop: 09/28/17 20:59 Last Admin: 08/09/17 21:11 Dose: Not Given Lorazepam (Ativan) 0.5 mg PO Q4HR PRN; Protocol PRN Reason: Agitation Stop: 08/28/17 16:26 Last Admin: 08/06/17 17:40 Dose: 0.5 mg Multivitamins/Vitamin C (Theragran) 1 tab PO DAILY BLAINE Stop: 09/28/17 08:59 Last Admin: 08/10/17 10:00 Dose: Not Given Olanzapine (Zyprexa Zydis) 7.5 mg SL BID BLAINE PRN Reason: Protocol Stop: 10/09/17 16:59 Simvastatin (Zocor) 20 mg PO HS BLAINE PRN Reason: Protocol Stop: 09/28/17 20:59 Last Admin: 08/09/17 21:11 Dose: Not Given Zolpidem Tartrate (Ambien) 5 mg PO HS PRN PRN Reason: Insomnia Stop: 09/27/17 16:26 Last Admin: 08/06/17 21:03 Dose: 5 mg General: alert HEENT: NC/AT, PERRLA Neck: Supple Lungs: CTAB Abdomen: soft, non-tender Neurological: alert - Procedures Procedures: Procedures Procedure Code Date BIOPSY EYELID & LID MARGIN 52056 10/04/98 EYELID BIOPSY 08.11 10/04/98 OTHER LOCAL DESTRUC SKIN 86.3 10/11/08 REMOVAL OF SKIN TAGS <W/15 50801 10/11/08 Internal Medicine Assmt/Plan - Assessment Assessment: agitation htn seizure chf - Plan Plan: seizure precautions continue current orders Nutritional Asmnt/Malnutr-PDOC - Dietary Evaluation Malnutrition Findings (Please click <Entered> for more info): Nutritional Asmnt/Malnutrition Start: 08/03/17 18: 54 Text: Status: Complete Freq: Document 08/03/17 18:54 EYALG (Rec: 08/03/17 18:58 [id number]) Nutritional Asmnt/Malnutrition Patient General Information Nutritional Screening Moderate Risk Diagnosis psychosis Pertinent Medical Hx/Surgical Hx HTN, Dm, CAD, CHF, seizures Subjective Information Per records, PO intake 75%. Current Diet Order/ Nutrition Support mech soft chopped Pertinent Medications colace, theragran, seroquel Pertinent Labs 07/29 Na 133, glucose 135, a1c 5 .8 Nutritional Hx/Data Height 6 ft 2 in Height (Calculated Centimeters) 188.0 Current Weight (lbs) 252 lb Weight (Calculated Kilograms) 114.3 Weight (Calculated Grams) 272614.3 [place] Body Weight 190 Body Mass Index (BMI) 32.3 Weight Status Obese GI Symptoms GI Symptoms None Last BM 2/5 Difficult in: None Skin Integrity/Comment: intact Estimated Nutritional Goals BEE in Kcals: Adj wt of IBW Calories/Kcals/Kg 25-30 Kcals Calculated 0825-6161 Protein: Adj wt of IBW Protein g/k.8-1 Protein Calculated 74-93 Fluid: ml 7151-5296 Nutritional Problem No current Nutrition Prob Problem N/A Malnutrition Alert Protein-Calorie Malnutrition N/A Is there a minimum of two criteria No selected? Query Text:Check all the applicable criteria. A minimum of two criteria are recommended for diagnosis of either severe or non-severe malnutrition. Intervention/Recommendation Comments 1. Continue with current diet as ordered. 2. Monitor PO intake, wt, labs and skin integrity 3. F/U as low risk in 7 days, 08/10 Expected Outcomes/Goals Expected Outcomes/Goals 1. PO intake to meet at least 75% of nutritional needs. 2. Wt stability, skin to remain intact, labs to approach WNL.
[2017-08-10] MEDS: OLANZapine 5 mg Oral Disintegrating Tab SL SCH (16:54)
--- NOTE | 2017-08-11 02:06 | Progress Notes ---
DATE: 08/10/2017 The patient is coming in due to worsening psychosis, poor medication compliance, combative and aggressive behaviors. The patient is calmer, seems to be less unruly, more interactive with staff. Apparently, he is conserved. Still somewhat impulsive and unpredictable, but seems to be improving. Medications reviewed. The patient remains isolative, somewhat reclusive, still delusional, but seems to be somewhat calmer on exam. Tolerant to treatment, tolerant to medications. PLAN: We will continue to monitor, monitor for any over sedation. The patient does seem to be improving. JOB# [id number]
[2017-08-11] MEDS: Lactulose 10 Gm/15 mL 30mL UDC PO SCH ×2 (08:48→16:47)
[2017-08-11] MEDS: Multivitamin Tab PO SCH (08:48)
[2017-08-11] MEDS: OLANZapine 5 mg Oral Disintegrating Tab SL SCH (08:48)
[2017-08-11] MEDS: Fenofibrate, Micronized 134 mg Cap PO SCH (08:49)
[2017-08-11] MEDS: OLANZapine 10 mg Oral Disintegrating Tab SL SCH (16:47)
--- NOTE | 2017-08-12 02:59 | Progress Notes ---
DATE: 08/11/2017 SUBJECTIVE: Chart reviewed and the patient interviewed. Also, discussed the patient's condition with the staff and reviewed records and labs. The patient is still psychotic and is still actively hallucinating and actively responding to stimuli. The patient also is still restless and he still has difficulty following directions, but it seems like he is less agitated and less irritable. He also still has poor hygiene, although it seems to be slightly improved. The patient is compliant with taking his medications at this time since his sister is a conservator and he did take Haldol Decanoate injection. Otherwise, no side effects of medications. ASSESSMENT: The patient is still psychotic and is still agitated. TREATMENT PLAN: Continue monitoring his behavior and his condition closely. Also, we will increase Zyprexa to 10 mg twice a day. Also, continue to work on his irritability and noncompliance with medications as well as discharge plans. Discussed with rehabilitation case coordinator discharge plans and it seems that [facility] will accept the patient and plan is to discharge the patient tomorrow if he continues to improve. [facility]# [id number]
[2017-08-12] MEDS: Fenofibrate, Micronized 134 mg Cap PO SCH (08:30)
[2017-08-12] MEDS: Multivitamin Tab PO SCH (08:31)
[2017-08-12] MEDS: OLANZapine 10 mg Oral Disintegrating Tab SL SCH (08:31)
[2017-08-12] MEDS: Lactulose 10 Gm/15 mL 30mL UDC PO SCH (08:31)
--- NOTE | 2017-08-12 09:20 | Discharge Summary ---
DATE OF DISCHARGE: 08/12/2017 DATE OF DISCHARGE: 08/12/2017. AGE: 67. SEX: Male. PHYSICIAN: Dr. Bauer. FINAL DIAGNOSES: PRIMARY DIAGNOSES: Schizoaffective disorder, bipolar type, with severe, with psychotic features. MEDICAL DIAGNOSES: 1. Hypertension. 2. Diabetes mellitus. 3. Congestive heart failure 4. Seizure disorder. REASON FOR HOSPITALIZATION: The patient was admitted to the hospital because of increased agitation and psychosis and refusing to take medications and striking out at staff. HOSPITAL COURSE: The patient continued to be extremely irritable and agitated. The patient continues pacing up and down the unit on his wheelchair. Also, was refusing to take his medications. Finally, his sister who is conservator agreed that the patient can take Haldol Decanoate injection. The patient also was given Zyprexa and the dose adjusted to 10 mg twice a day. Physical examination of the patient came as mentioned under accessory of final diagnosis. Blood workup was basically monitored closely and no major medical issues. AFTER DISCHARGE PLANS: The patient was accepted by [facility]. Plan to discharge the patient today and follow up as an outpatient there. EXPECTED OUTCOME AFTER DISCHARGE: Fair if the patient continued to take psychotropic medications and follow up with discharge plans. JOB# [id number]
== END 2017-08-12 15:00 | DRG 885 ==
LOC: ER 12:30 → GERO 13:46
PROVIDERS: ADMIT Psychiatry & Neurology Psychiatry; ATTEND Psychiatry & Neurology Psychiatry
DX: F25.0 Schizoaffective disorder, bipolar type (principal); I11.0 Hypertensive heart disease with heart failure; I50.9 Heart failure, unspecified; E11.9 Type 2 diabetes mellitus without complications; F29 Unspecified psychosis not due to a substance or known physiological condition; G40.909 Epilepsy, unspecified, not intractable, without status epilepticus; I25.10 Atherosclerotic heart disease of native coronary artery without angina pectoris; Z91.14 Patient's other noncompliance with medication regimen; Z79.899 Other long term (current) drug therapy
CPT/HCPCS: 36415-UA; 80053-TC; 80061-TC; 80156-TC; 80320-TC; 80329-TC; 83036-90; 84443-TC; 85025-TC; 86592-TC; 93005; J1631; J2060; Z7610

== ENCOUNTER 2018-11-14 23:14 | Inpatient (IN) | payer MEDICARE, MEDICAID ==
--- NOTE | 2018-11-14 23:52 | ED Physician Chart ---
ED Chief Complaint/HPI - Patient Information Date Seen:: 11/14/18 Time Seen:: 23:30 Chief Complaint:: Abnormal lab results. History of Present Illness:: Brought in by ambulance from nursing facility because pt was found to have abnormal lab studies on 11/08/2018 that revealed low Na 128, low Keppra level 3.7 , and high ammonia level of 120. Pt is not cooperative; thus, H & P are limited. Info is primarily from review of limited transfer documents. Allergies:: Allergies Allergy/AdvReac Type Severity Reaction Status Date / Time No Known Allergies Allergy Verified 07/29/17 12:46 Vitals:: Vital Signs - 8 hr 11/14/18 23:20 Temp 97.9 F HR 73 RR 16 BP 140/91 O2 Sat % 98 Historian:: Medical Records (from transferring facility) Family MD/PCP:: Dr. Wilson LMP:: N/A Review:: Nurse's Note Reviewed, Transfer documents Reviewed ED Review of Systems - Review of Systems General/Constitutional: Other (Pt does not cooperate for ROS.) ED Past Medical History - Past Medical History Past Medical History: HTN, DM, CHF, Dyslipidemia, Seizures Family History: Other (Pt does not cooperate to provide info on FHx.) Social History: Care Facility, Other (Pt does not cooperate to provide info on SHx.) Surgical History: other (Pt does not cooperate to provide info on Surgical Hx.) Psychiatricy History: Depression, Schizophrenia, Dementia Medication: Reviewed Family Medical History - Family Member Mother History Unknown: Yes Ethnicity: Non- Living Status: Unknown Hx Family Cancer: No Hx Family Coronary Artery Disease: No Hx Family Congestive Heart Failure: No Hx Family Hypertension: No Hx Family Stroke: No Hx Family Diabetes: No Hx Family Seizures: No Hx Family Dementia: No Hx Family AIDS: No Hx Family HIV: No Hx Family COPD: No Hx Family Hepatitis: No Hx Family Psychiatric Problems: No Hx Family Tuberculosis: No ED Physical Exam - Physical Examination General/Constitutional: Awake, Well-developed, well-nourished (male), Alert, No distress Other Gen/Cons comments:: Breathes comfortably. Pt is essentially nonverbal and is not cooperative. Head: Atraumatic Eyes: Lids, conjuctiva normal, PERRL, EOMI Skin: No lymphadenopathy ENMT: External ears, nose nl, Nasal exam nl, Oropharynx nl Other ENMT comments:: Mucous membrane is slightly dry. Neck: Nontender, Full ROM w/o pain, No JVD, No nuchal rigidity, No mass Respiratory: Nl effort/Exclusion, Clear to Auscultation, No Wheeze/Rhonchi/Rales Cardio Vascular: RRR, No murmur, gallop, rubs GI: No tenderness/rebounding/guarding, No organomegaly, Normal BS's, Nondistended Other GI comments:: Abdomen is soft but obese. Extremities: No edema Other Neuro/Psych comments:: Alert but essentially nonverbal. Spontaneous movements noticed in all 4 extremities. Pt does not cooperate for full neurological exam. ED Labs/Radiology/EKG Results - Lab Results Results: Laboratory Tests 11/14/18 11/14/18 11/14/18 23:53 23:53 23:53 WBC 5.5 RBC 4.65 Hgb 13.5 Hct 41.8 MCV 89.9 MCH 29.1 MCHC Differential 32.4 RDW 12.7 Plt Count 215 MPV 7.9 Neutrophils % 59.5 Lymphocytes % 23.1 Monocytes % 9.8 Eosinophils % 4.3 Basophils % 3.3 H Sodium 124 L Potassium 4.0 Chloride 92 L Carbon Dioxide 25.0 Anion Gap 11.0 BUN 11 Creatinine 0.6 L Est GFR ( Amer) > 60.0 Est GFR (Non-Af Amer) > 60.0 BUN/Creatinine Ratio 18.3 Glucose 117 H Calcium 9.2 Total Bilirubin 0.3 AST 11 L ALT 12 Alkaline Phosphatase 67 Ammonia 72 H Total Protein 6.9 Albumin 4.1 L Globulin 2.8 Albumin/Globulin Ratio 1.5 Laboratory Last Values WBC 5.5 Th/cmm (4.8-10.8) 11/14/18 23:53 RBC 4.65 Mil/cmm (3.80-5.80) 11/14/18 23:53 Hgb 13.5 gm/dL (12-16) 11/14/18 23:53 Hct 41.8 % (41.0-60) 11/14/18 23:53 MCV 89.9 fl (80-99) 11/14/18 23:53 MCH 29.1 pg (27.0-31.0) 11/14/18 23:53 MCHC Differential 32.4 pg (28.0-36.0) 11/14/18 23:53 RDW 12.7 % (11.5-20.0) 11/14/18 23:53 Plt Count 215 Th/cmm (150-400) 11/14/18 23:53 MPV 7.9 fl 11/14/18 23:53 Neutrophils % 59.5 % (40.0-80.0) 11/14/18 23:53 Lymphocytes % 23.1 % (20.0-50.0) 11/14/18 23:53 Monocytes % 9.8 % (2.0-10.0) 11/14/18 23:53 Eosinophils % 4.3 % (0.0-5.0) 11/14/18 23:53 Basophils % 3.3 % (0.0-2.0) H 11/14/18 23:53 Sodium 124 mEq/L (136-145) L 11/14/18 23:53 Potassium 4.0 mEq/L (3.5-5.1) 11/14/18 23:53 Chloride 92 mEq/L (98-107) L 11/14/18 23:53 Carbon Dioxide 25.0 mEq/L (21.0-31.0) 11/14/18 23:53 Anion Gap 11.0 (7.0-16.0) 11/14/18 23:53 BUN 11 mg/dL (7-25) 11/14/18 23:53 Creatinine 0.6 mg/dL (0.7-1.3) L 11/14/18 23:53 Est GFR ( Amer) > 60.0 ml/min (>90) 11/14/18 23:53 Est GFR (Non-Af Amer) > 60.0 ml/min 11/14/18 23:53 BUN/Creatinine Ratio 18.3 11/14/18 23:53 Glucose 117 mg/dL (70-105) H 11/14/18 23:53 Calcium 9.2 mg/dL (8.6-10.3) 11/14/18 23:53 Total Bilirubin 0.3 mg/dL (0.3-1.0) 11/14/18 23:53 AST 11 U/L (13-39) L 11/14/18 23:53 ALT 12 U/L (7-52) 11/14/18 23:53 Alkaline Phosphatase 67 U/L (34-104) 11/14/18 23:53 Ammonia 72 umol/L (16-53) H 11/14/18 23:53 Total Protein 6.9 gm/dL (6.0-8.3) 11/14/18 23:53 Albumin 4.1 gm/dL (4.2-5.5) L 11/14/18 23:53 Globulin 2.8 gm/dL 11/14/18 23:53 Albumin/Globulin Ratio 1.5 (1.0-1.8) 11/14/18 23:53 Urine Color YELLOW 11/15/18 01:17 Urine Clarity HAZY (CLEAR) 11/15/18 01:17 Urine pH 7.0 (4.6 - 8.0) 11/15/18 01:17 Ur Specific [place] 1.010 (1.005-1.030) 11/15/18 01:17 Urine Protein NEGATIVE mg/dL (NEGATIVE) 11/15/18 01:17 Urine Glucose (UA) NEGATIVE mg/dL (NEGATIVE) 11/15/18 01:17 Urine Ketones NEGATIVE mg/dL (NEGATIVE) 11/15/18 01:17 Urine Blood TRACE (NEGATIVE) 11/15/18 01:17 Urine Nitrate NEGATIVE (NEGATIVE) 11/15/18 01:17 Urine Bilirubin NEGATIVE (NEGATIVE) 11/15/18 01:17 Urine Urobilinogen 0.2 E.U./dL (0.2 - 1.0) 11/15/18 01:17 Ur Leukocyte Esterase LARGE (NEGATIVE) H 11/15/18 01:17 Pending lab result: urine culture. Laboratory Last Values WBC 5.5 Th/cmm (4.8-10.8) 11/14/18 23:53 RBC 4.65 Mil/cmm (3.80-5.80) 11/14/18 23:53 Hgb 13.5 gm/dL (12-16) 11/14/18 23:53 Hct 41.8 % (41.0-60) 11/14/18 23:53 MCV 89.9 fl (80-99) 11/14/18 23:53 MCH 29.1 pg (27.0-31.0) 11/14/18 23:53 MCHC Differential 32.4 pg (28.0-36.0) 11/14/18 23:53 RDW 12.7 % (11.5-20.0) 11/14/18 23:53 Plt Count 215 Th/cmm (150-400) 11/14/18 23:53 MPV 7.9 fl 11/14/18 23:53 Neutrophils % 59.5 % (40.0-80.0) 11/14/18 23:53 Lymphocytes % 23.1 % (20.0-50.0) 11/14/18 23:53 Monocytes % 9.8 % (2.0-10.0) 11/14/18 23:53 Eosinophils % 4.3 % (0.0-5.0) 11/14/18 23:53 Basophils % 3.3 % (0.0-2.0) H 11/14/18 23:53 Sodium 124 mEq/L (136-145) L 11/14/18 23:53 Potassium 4.0 mEq/L (3.5-5.1) 11/14/18 23:53 Chloride 92 mEq/L (98-107) L 11/14/18 23:53 Carbon Dioxide 25.0 mEq/L (21.0-31.0) 11/14/18 23:53 Anion Gap 11.0 (7.0-16.0) 11/14/18 23:53 BUN 11 mg/dL (7-25) 11/14/18 23:53 Creatinine 0.6 mg/dL (0.7-1.3) L 11/14/18 23:53 Est GFR ( Amer) > 60.0 ml/min (>90) 11/14/18 23:53 Est GFR (Non-Af Amer) > 60.0 ml/min 11/14/18 23:53 BUN/Creatinine Ratio 18.3 11/14/18 23:53 Glucose 117 mg/dL (70-105) H 11/14/18 23:53 Calcium 9.2 mg/dL (8.6-10.3) 11/14/18 23:53 Total Bilirubin 0.3 mg/dL (0.3-1.0) 11/14/18 23:53 AST 11 U/L (13-39) L 11/14/18 23:53 ALT 12 U/L (7-52) 11/14/18 23:53 Alkaline Phosphatase 67 U/L (34-104) 11/14/18 23:53 Ammonia 72 umol/L (16-53) H 11/14/18 23:53 Total Protein 6.9 gm/dL (6.0-8.3) 11/14/18 23:53 Albumin 4.1 gm/dL (4.2-5.5) L 11/14/18 23:53 Globulin 2.8 gm/dL 11/14/18 23:53 Albumin/Globulin Ratio 1.5 (1.0-1.8) 11/14/18 23:53 Urine Source CATH 11/15/18 01:17 Urine Color YELLOW 11/15/18 01:17 Urine Clarity HAZY (CLEAR) 11/15/18 01:17 Urine pH 7.0 (4.6 - 8.0) 11/15/18 01:17 Ur Specific [place] 1.010 (1.005-1.030) 11/15/18 01:17 Urine Protein NEGATIVE mg/dL (NEGATIVE) 11/15/18 01:17 Urine Glucose (UA) NEGATIVE mg/dL (NEGATIVE) 11/15/18 01:17 Urine Ketones NEGATIVE mg/dL (NEGATIVE) 11/15/18 01:17 Urine Blood TRACE (NEGATIVE) 11/15/18 01:17 Urine Nitrate NEGATIVE (NEGATIVE) 11/15/18 01:17 Urine Bilirubin NEGATIVE (NEGATIVE) 11/15/18 01:17 Urine Urobilinogen 0.2 E.U./dL (0.2 - 1.0) 11/15/18 01:17 Ur Leukocyte Esterase LARGE (NEGATIVE) H 11/15/18 01:17 Urine RBC 0-2 /hpf (0-5) H 11/15/18 01:17 Urine WBC 10-25 /hpf (0-5) H 11/15/18 01:17 Ur Epithelial Cells OCCASIONAL /lpf (FEW) 11/15/18 01:17 Urine Bacteria FEW /hpf (NONE SEEN) 11/15/18 01:17 ED Septic Shock - . Is Septic Shock (SBP<90, OR Lactate>4 mmol\L) present?: No - <6hrs of presentation: Vital Signs: Vital Signs - 8 hr 11/14/18 23:20 Temp 97.9 F HR 73 RR 16 BP 140/91 O2 Sat % 98 ED Reassessment (Disposition) - Reassessment Reassessment:: 0110 Pt has been repeatedly evaluated. Pt remains stable. Lab results just become available and have been reviewed. Pt is to be provided with IV hydration with normal saline and lactulose per rectum. 0250 Case was discussed with Dr. Middleton with pertinent info reviewed. He requested pt to have NG tube placed. He decided to admit pt to [facility] under his care. Orders were entered for NG tube placement and KUB X-ray for confirmation. Dr. Middleton is to follow. Reassessment Condition:: Improved - Diagnosis Diagnosis:: Hyponatremia. Hepatic encephalopathy with elevated ammonia level. Urinary tract infection. H/O seizure disorder. Diabetes mellitus. H/O HTN - Patient Disposition Admitted to:: Telemetry Admitting Medical Physician:: Merlin Middleton Time:: 02:55 Condition at Disposition:: Stable, Improved
[2018-11-15 00:05] LABS: % BASOPHILS 3.3 % (0.0-2.0); % EOSINOPHILS 4.3 % (0.0-5.0); % LYMPHOCYTES 23.1 % (20.0-50.0); % MONOCYTES 9.8 % (2.0-10.0); % NEUTROPHILS 59.5 % (40.0-80.0); BASOPHILE ABSOLUTE 0.2 Th/cumm (0-0.2); EOSINOPHILE ABSOLUTE 0.2 Th/cmm (0.1-0.4); HEMATOCRIT 41.8 % (41.0-60); HEMOGLOBIN 13.5 gm/dL (12-16); LYMPHOCYTE ABSOLUTE 1.3 Th/cmm (1.5-3.0); MEAN CELL VOLUME 89.9 fl (80-99); MEAN CORPUSCULAR HEMOGLOBIN 29.1 pg (27.0-31.0); MEAN CORPUSCULAR HGB CONC 32.4 pg (28.0-36.0); MEAN PLATELET VOLUME 7.9 fl; MONOCYTE ABSOLUTE 0.5 Th/cmm (0.3-1.0); NEUTROPHILE ABSOLUTE 3.3 Th/cmm (1.8-8.0); PLATELET COUNT 215 Th/cmm (150-400); RED BLOOD COUNT 4.65 Mil/cmm (3.80-5.80); RED CELL DISTRIBUTION WIDTH 12.7 % (11.5-20.0); WHITE BLOOD COUNT 5.5 Th/cmm (4.8-10.8)
[2018-11-15 00:28] LABS: ALB/GLOB RATIO 1.5 (1.0-1.8); ALBUMIN 4.1 gm/dL (4.2-5.5); ALKALINE PHOSPHATASE 67 U/L (34-104); BILIRUBIN,TOTAL 0.3 mg/dL (0.3-1.0); BUN - UREA NITROGEN 11 mg/dL (7-25); CALCIUM SERUM 9.2 mg/dL (8.6-10.3); CHLORIDE 92 mEq/L (98-107); CREATININE - SERUM 0.6 mg/dL (0.7-1.3); GFR AFRICAN-AMERICAN > 60.0 ml/min (>90); GFR NON AFRICAN-AMERICAN > 60.0 ml/min; GLUCOSE 117 mg/dL (70-105); SGOT 11 U/L (13-39); SGPT/ALT 12 U/L (7-52); SODIUM SERUM 124 mEq/L (136-145); TOTAL PROTEIN,SERUM 6.9 gm/dL (6.0-8.3)
[2018-11-15] MEDS ORDERED: Lactulose 10 Gm/15 mL 30mL UDC RC STA (01:08)
[2018-11-15] MEDS ORDERED: Sodium Chloride 0.9% 1,000 ML IV SCH (01:15)
[2018-11-15 01:28] LABS: URINE SOURCE CATH
[2018-11-15 01:31] LABS: URINE BILIRUBIN NEGATIVE (NEGATIVE); URINE BLOOD TRACE (NEGATIVE); URINE GLUCOSE (UA) NEGATIVE (NEGATIVE); URINE KETONE NEGATIVE (NEGATIVE); URINE LEUKOCYTE ESTERASE LARGE (NEGATIVE); URINE MICROSCOPIC INDICATED? YES; URINE NITRATE NEGATIVE (NEGATIVE); URINE PROTEIN NEGATIVE (NEGATIVE); URINE UROBILINOGEN 0.2 E.U./dL (0.2 - 1.0)
[2018-11-15 01:32] LABS: URINE CLARITY HAZY (CLEAR); URINE COLOR YELLOW
[2018-11-15 01:38] LABS: URINE RBC 0-2 /hpf (0-5)
[2018-11-15 01:39] LABS: URINE BACTERIA FEW /hpf (NONE SEEN); URINE EPITHELIAL CELLS OCCASIONAL /lpf (FEW)
[2018-11-15] MEDS ORDERED: Levofloxacin 500mg/100mL 500 MG in Premix Fluid 1 BAG IV ONE (01:39)
[2018-11-15] MEDS ORDERED: Levofloxacin 500mg/100mL 500 MG/100 ML BAG IV ONE (01:45)
[2018-11-15] MEDS ORDERED: Lactulose 10 Gm/15 mL 30mL UDC ONE (02:00)
[2018-11-15] MEDS ORDERED: Sodium Chloride 0.9% 1,000 ML IV ONE ×2 (04:19→14:38)
[2018-11-15 06:14] LABS: % EOSINOPHILS 2.6 % (0.0-5.0); % LYMPHOCYTES 19.6 % (20.0-50.0); % MONOCYTES 10.5 % (2.0-10.0); % NEUTROPHILS 67.3 % (40.0-80.0); EOSINOPHILE ABSOLUTE 0.1 Th/cmm (0.1-0.4); HEMATOCRIT 43.2 % (41.0-60); HEMOGLOBIN 14.2 gm/dL (12-16); LYMPHOCYTE ABSOLUTE 0.9 Th/cmm (1.5-3.0); MEAN CORPUSCULAR HEMOGLOBIN 29.9 pg (27.0-31.0); MEAN CORPUSCULAR HGB CONC 32.8 pg (28.0-36.0); MEAN PLATELET VOLUME 7.7 fl; MONOCYTE ABSOLUTE 0.5 Th/cmm (0.3-1.0); NEUTROPHILE ABSOLUTE 3.2 Th/cmm (1.8-8.0); PLATELET COUNT 231 Th/cmm (150-400); RED BLOOD COUNT 4.75 Mil/cmm (3.80-5.80); RED CELL DISTRIBUTION WIDTH 12.8 % (11.5-20.0); WHITE BLOOD COUNT 4.7 Th/cmm (4.8-10.8)
[2018-11-15] MEDS: Lactulose 10 Gm/15 mL 30mL UDC PO SCH ×4 (06:21→20:32)
[2018-11-15 07:06] LABS: ALB/GLOB RATIO 1.4 (1.0-1.8); ALBUMIN 4.1 gm/dL (4.2-5.5); ALKALINE PHOSPHATASE 69 U/L (34-104); ANION GAP 11.7 (7.0-16.0); BILIRUBIN,TOTAL 0.4 mg/dL (0.3-1.0); BUN - UREA NITROGEN 9 mg/dL (7-25); CALCIUM SERUM 9.1 mg/dL (8.6-10.3); CARBON DIOXIDE 25.3 mEq/L (21.0-31.0); CHLORIDE 94 mEq/L (98-107); CREATININE - SERUM 0.6 mg/dL (0.7-1.3); GFR AFRICAN-AMERICAN > 60.0 ml/min (>90); GFR NON AFRICAN-AMERICAN > 60.0 ml/min; GLUCOSE 106 mg/dL (70-105); SGOT 11 U/L (13-39); SGPT/ALT 13 U/L (7-52); SODIUM SERUM 127 mEq/L (136-145); TOTAL PROTEIN,SERUM 7.1 gm/dL (6.0-8.3)
[2018-11-15] MEDS ORDERED: carBAMazepine 200 mg/10 mL UDC PO SCH (09:00)
[2018-11-15] MEDS: cefTRIAXone 1 GM in Sodium Chloride 0.9% 50 ML IV SCH (14:20)
--- NOTE | 2018-11-15 15:20 | History & Physical ---
ADMIT DATE: 11/15/2018 CHIEF COMPLAINT: Abnormal labs. HISTORY OF PRESENT ILLNESS: The patient is 68-year-old male with a past medical history of hypertension, diabetes mellitus type 2, CHF, dyslipidemia, seizure disorder, cirrhosis, brought in from nursing facility for abnormal lab reports. On 11/08/2018, the patient's sodium was 128. Keppra level was 3.7 with ammonia level of 120. The patient was not cooperating and not giving any history, so history is very limited. I tried to wake him up, but he is reluctant to wake up. As per the staff, the patient was communicating as per his preference. On initial evaluation, the patient's vital signs showed temperature 97.9, pulse 73, respirations 16, blood pressure 140/91. Lab sandoval, the patient's sodium was 124 and ammonia was 72. Urinalysis also showed some haziness, pyuria and bacteriuria. Normal saline was started. PAST MEDICAL HISTORY: Includes hypertension, diabetes mellitus type 2, CHF, dyslipidemia, seizure disorder, probably cirrhosis. FAMILY HISTORY: Not available. SOCIAL HISTORY: The patient lives at care facility. No history of smoking, alcohol or drug use. PAST SURGICAL HISTORY: Not available. PSYCHIATRIC HISTORY: Depression, schizophrenia and dementia. MEDICATIONS: As per medication reconciliation sheet. Medications include Tegretol 200 mg p.o. 3 times a day, Celexa 20 mg p.o. daily in the morning, Colace 250 mg p.o. daily, lactulose 10 mg p.o. twice a day, Keppra 1 gram p.o. at nighttime, Cozaar 50 mg p.o. daily, Haldol Decanoate 50 mg p.o. daily, Zocor 20 mg p.o. daily at nighttime, Zyprexa 10 mg p.o. at nighttime. ALLERGIES: NKDA. REVIEW OF SYSTEMS: The patient is not providing any history. So far, the patient has no fever, no chills. PHYSICAL EXAMINATION: VITAL SIGNS: Shows temperature is 98 97.6 degrees Fahrenheit, pulse 63, respirations 18, blood pressure 128/58. GENERAL: Pleasant, comfortable lying in the bed, not in acute distress. HEENT: Head is normocephalic, atraumatic. Oral cavity moist, pink tongue. NECK: Supple, no JVD, no carotid bruit. Trachea in midline. CHEST: Bilateral breath sounds. No crackles or wheezing. HEART: S1 and S2 within normal limits. Regular rhythm. No murmur, no gallop. ABDOMEN: Soft, nontender, nondistended. Bowel sounds present. EXTREMITIES: No cyanosis, no clubbing, no edema. NEUROLOGIC: The patient is on multiple attempts. He talked to me, but did not want to communicate further. LABORATORY DATA: Current lab shows WBC count is up a 4700, hemoglobin 14.2, hematocrit 43.5, hematocrit 43.2, platelets are 231,000. Differential reviewed. Sodium 127, potassium 4, chloride 94, bicarbonate is 25, BUN is 9, creatinine 0.6, glucose 106. AST is 11, ALT is 13, alkaline phosphatase 69 and urinalysis showed large eyes. His urine with negative protein, negative glucose, ketones, negative nitrite, negative bilirubin, negative, large leukoesterase, WBC 20 10-25 RBC and few bacteria. IMPRESSION: 1. Hyponatremia. 2. Altered mental status may be secondary to hepatic encephalopathy 3. Metabolic encephalopathy. 4. Urinary tract infection. 5. Hypertension. 6. Diabetes mellitus type 2. 7. Congestive heart failure. 8. Dyslipidemia. 9. Seizure disorder. PLAN: We will consult this psychiatric consultation with Dr. Coulter, as well Dr. Romero for electrolyte abnormality. Start lactulose at least 4 times a day and continue other medication. Start Rocephin 1 gram daily IV for UTI. JOB# [id number]
[2018-11-15] MEDS ORDERED: Lactulose 10 Gm/15 mL 30mL UDC PO SCH (17:00)
--- NOTE | 2018-11-15 23:31 | Consultation ---
DATE OF CONSULTATION: 11/15/2018 ATTENDING PHYSICIAN: Dr. Dasha Wilson REASON FOR CONSULT: Electrolyte imbalance in the form of hyponatremia as well as fluid management. This is a 68-year-old male with past medical history of epilepsy, was brought in because of abnormal labs. A few hours prior to admission, the patient had labs drawn at the [facility]. This resulted with sodium of 128, Keppra level of 3.7 and ammonia of 120. He was then brought to the Emergency Room. Labs at the Emergency Room turned out to have sodium of 124 and ammonia of 72. He had no history of nausea and vomiting nor diarrhea. PAST MEDICAL HISTORY: 1. Type 2 diabetes mellitus. 2. Epilepsy. 3. Essential hypertension. 4. Dyslipidemia. 5. Hyponatremia. 6. History of congestive heart failure. 7. Major depression. 8. Schizoaffective disorder. CURRENT MEDICATIONS: Currently on Tegretol, ceftriaxone, citalopram, docusate sodium, haloperidol, lactulose, levetiracetam, losartan, olanzapine, simvastatin. ALLERGIES: No known drug allergies. SOCIAL AND FAMILY HISTORY: I was not able to obtain directly from the patient because he remains stuporous at the present time. REVIEW OF SYSTEMS: Again, I was not able to decipher directly from the patient because of the same reason. PHYSICAL EXAMINATION: GENERAL: The patient remains stuporous, however arousable not in any distress. VITAL SIGNS: His blood pressure is 128/58, pulse 63, temperature 97.6 degrees. SKIN: Good turgor, warm, no rash, no jaundice appreciated. HEENT: Head normocephalic, atraumatic. Eyes: Unable to assess his extraocular muscles. Pupils are equal, round, reactive to light and accommodates. Anicteric sclerae. [place] conjunctivae. Nose, midline nasal septum. Mouth: Dry mucosa, adequate dentition. NECK: Supple, no adenopathy, no thyromegaly, and no bruits. Trachea palpated in the midline. CHEST AND CARDIOVASCULAR: S1, S2. No rub, murmur, no gallop appreciated. Point of maximal impulse fifth intercostal space, left midclavicular line. No abdominal or femoral bruits appreciated. LUNGS: Equal expansion. No use of accessory muscles. No supraclavicular retractions. Decreased breath sounds. Clear to auscultation without any wheeze. ABDOMEN: Obese, soft, positive for bowel sounds. No bruits either diastolic or systolic. No pulsatile masses. RECTAL: Deferred. GENITOURINARY: Normal appearing male genitalia. MUSCULOSKELETAL: No effusions present in his joints. Unable to assess his range of motion. EXTREMITIES: No evidence of edema, cyanosis nor clubbing with palpable femoral, but unable to fully appreciate popliteal and dorsalis pedis pulses. NEUROLOGIC: The patient is stuporous, so unable to follow my neuro commands, so I was not able to pursue further my neuro exam. LABORATORY AND DIAGNOSTIC DATA: Labs did reveal white count of 4.7, hemoglobin 14.3, hematocrit 43.2, platelets 231, polys 67.3%. Sodium 127, potassium 4, chloride 94, bicarb 25, BUN 9, creatinine 0.6, glucose 106, albumin 4.1. IMPRESSION: 1. 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 2. Epilepsy with low Keppra level. No recent seizure activity. 3. Hyperammonemia with possible metabolic encephalopathy. 4. Complicated urinary tract infection. 5. Type 2 diabetes mellitus. 6. Essential hypertension. 7. Dyslipidemia. 8. History of congestive heart failure. 9. Major depression. 10. Schizoaffective disorder. PLAN: 1. Continue with IV hydration. 2. Electrolytes, CBC, TSH, serum osmolarity, uric acid. 3. Consider switching Tegretol to another antiepileptic medication because this is a cause of SIADH. 4. Follow up urine C and S. 5. Urine sodium level. Thank you Dr. Wilson for this consult. We will follow the patient closely with you. JOB# [id number]
[2018-11-16 05:37] LABS: % EOSINOPHILS 3.5 % (0.0-5.0); % NEUTROPHILS 62.5 % (40.0-80.0); EOSINOPHILE ABSOLUTE 0.2 Th/cmm (0.1-0.4); HEMATOCRIT 44.2 % (41.0-60); HEMOGLOBIN 14.3 gm/dL (12-16); LYMPHOCYTE ABSOLUTE 1.5 Th/cmm (1.5-3.0); MEAN CELL VOLUME 90.7 fl (80-99); MEAN CORPUSCULAR HEMOGLOBIN 29.4 pg (27.0-31.0); MEAN CORPUSCULAR HGB CONC 32.4 pg (28.0-36.0); MONOCYTE ABSOLUTE 0.4 Th/cmm (0.3-1.0); NEUTROPHILE ABSOLUTE 3.5 Th/cmm (1.8-8.0); PLATELET COUNT 243 Th/cmm (150-400); RED BLOOD COUNT 4.87 Mil/cmm (3.80-5.80); RED CELL DISTRIBUTION WIDTH 12.8 % (11.5-20.0); WHITE BLOOD COUNT 5.6 Th/cmm (4.8-10.8)
[2018-11-16 05:50] LABS: ANION GAP 11.8 (7.0-16.0); BUN - UREA NITROGEN 9 mg/dL (7-25); CALCIUM SERUM 9.2 mg/dL (8.6-10.3); CHLORIDE 95 mEq/L (98-107); CREATININE - SERUM 0.7 mg/dL (0.7-1.3); GFR AFRICAN-AMERICAN > 60.0 ml/min (>90); GFR NON AFRICAN-AMERICAN > 60.0 ml/min; GLUCOSE 97 mg/dL (70-105); MAGNESIUM 2.2 mg/dL (1.9-2.7); PHOSPHOROUS 3.5 mg/dL (2.5-5.0); POTASSIUM SERUM 3.8 mEq/L (3.5-5.1); SODIUM SERUM 128 mEq/L (136-145); URIC ACID 2.6 mg/dL (4.4-7.6)
[2018-11-16] MEDS: Lactulose 10 Gm/15 mL 30mL UDC PO SCH ×4 (08:35→20:19)
--- NOTE | 2018-11-16 13:51 | Internal Medicine Prog Note ---
Internal Medicine Subjective - Subjective Service Date: 11/16/18 Patient seen and examined:: with staff Patient is:: awake, verbal, in bed Internal Medicine Objective - Results Result Diagrams: 11/16/18 05:15 11/16/18 05:15 Recent Labs: Laboratory Last Values WBC 5.6 Th/cmm (4.8-10.8) 11/16/18 05:15 RBC 4.87 Mil/cmm (3.80-5.80) 11/16/18 05:15 Hgb 14.3 gm/dL (12-16) 11/16/18 05:15 Hct 44.2 % (41.0-60) 11/16/18 05:15 MCV 90.7 fl (80-99) 11/16/18 05:15 MCH 29.4 pg (27.0-31.0) 11/16/18 05:15 MCHC Differential 32.4 pg (28.0-36.0) 11/16/18 05:15 RDW 12.8 % (11.5-20.0) 11/16/18 05:15 Plt Count 243 Th/cmm (150-400) 11/16/18 05:15 MPV 8.0 fl 11/16/18 05:15 Neutrophils % 62.5 % (40.0-80.0) 11/16/18 05:15 Lymphocytes % 26.0 % (20.0-50.0) 11/16/18 05:15 Monocytes % 8.0 % (2.0-10.0) 11/16/18 05:15 Eosinophils % 3.5 % (0.0-5.0) 11/16/18 05:15 Basophils % 0.0 % (0.0-2.0) 11/16/18 05:15 Sodium 128 mEq/L (136-145) L 11/16/18 05:15 Potassium 3.8 mEq/L (3.5-5.1) 11/16/18 05:15 Chloride 95 mEq/L (98-107) L 11/16/18 05:15 Carbon Dioxide 25.0 mEq/L (21.0-31.0) 11/16/18 05:15 Anion Gap 11.8 (7.0-16.0) 11/16/18 05:15 BUN 9 mg/dL (7-25) 11/16/18 05:15 Creatinine 0.7 mg/dL (0.7-1.3) 11/16/18 05:15 Est GFR ( Amer) > 60.0 ml/min (>90) 11/16/18 05:15 Est GFR (Non-Af Amer) > 60.0 ml/min 11/16/18 05:15 BUN/Creatinine Ratio 12.9 11/16/18 05:15 Glucose 97 mg/dL (70-105) 11/16/18 05:15 POC Glucose 109 MG/DL (70 - 105) H 11/15/18 11:58 Uric Acid 2.6 mg/dL (4.4-7.6) L 11/16/18 05:15 Calcium 9.2 mg/dL (8.6-10.3) 11/16/18 05:15 Phosphorus 3.5 mg/dL (2.5-5.0) 11/16/18 05:15 Magnesium 2.2 mg/dL (1.9-2.7) 11/16/18 05:15 Total Bilirubin 0.4 mg/dL (0.3-1.0) 11/15/18 06:06 AST 11 U/L (13-39) L 11/15/18 06:06 ALT 13 U/L (7-52) 11/15/18 06:06 Alkaline Phosphatase 69 U/L (34-104) 11/15/18 06:06 Ammonia 72 umol/L (16-53) H 11/14/18 23:53 Total Protein 7.1 gm/dL (6.0-8.3) 11/15/18 06:06 Albumin 4.1 gm/dL (4.2-5.5) L 11/15/18 06:06 Globulin 3.0 gm/dL 11/15/18 06:06 Albumin/Globulin Ratio 1.4 (1.0-1.8) 11/15/18 06:06 TSH 1.88 uIU/ml (0.34-5.60) 11/16/18 05:15 Urine Source CATH 11/15/18 01:17 Urine Color YELLOW 11/15/18 01:17 Urine Clarity HAZY (CLEAR) 11/15/18 01:17 Urine pH 7.0 (4.6 - 8.0) 11/15/18 01:17 Ur Specific [place] 1.010 (1.005-1.030) 11/15/18 01:17 Urine Protein NEGATIVE mg/dL (NEGATIVE) 11/15/18 01:17 Urine Glucose (UA) NEGATIVE mg/dL (NEGATIVE) 11/15/18 01:17 Urine Ketones NEGATIVE mg/dL (NEGATIVE) 11/15/18 01:17 Urine Blood TRACE (NEGATIVE) 11/15/18 01:17 Urine Nitrate NEGATIVE (NEGATIVE) 11/15/18 01:17 Urine Bilirubin NEGATIVE (NEGATIVE) 11/15/18 01:17 Urine Urobilinogen 0.2 E.U./dL (0.2 - 1.0) 11/15/18 01:17 Ur Leukocyte Esterase LARGE (NEGATIVE) H 11/15/18 01:17 Urine RBC 0-2 /hpf (0-5) H 11/15/18 01:17 Urine WBC 10-25 /hpf (0-5) H 11/15/18 01:17 Ur Epithelial Cells OCCASIONAL /lpf (FEW) 11/15/18 01:17 Urine Bacteria FEW /hpf (NONE SEEN) 11/15/18 01:17 Ur Random Sodium 66 mmol/L 11/15/18 16:35 - Physical Exam Vitals and I&O: Vital Signs Temp 97.9 F 11/16/18 12:00 Pulse 73 11/16/18 12:00 Resp 18 11/16/18 12:00 BP 135/65 11/16/18 12:00 Pulse Ox 96 11/16/18 12:00 Intake & Output 11/15/18 11/16/18 11/16/18 18:59 06:59 18:59 Intake Total 400 400 Balance 400 400 Weight (lbs) 103.419 kg 103.419 kg Intake: Oral 400 400 Other: # Voids 5 2 # Bowel Movements 1 2 Stool Characteristics Soft Formed Weight Source Bedscale Bedscale Active Medications: Current Medications Carbamazepine (Tegretol) 200 mg PO TID [facility]; Protocol Stop: 01/14/19 13:59 Last Admin: 11/16/18 08:34 Dose: 200 mg Citalopram Hydrobromide (Celexa) 20 mg PO QAM [facility]; Protocol Stop: 01/15/19 11:59 Docusate Sodium (Colace) 250 mg PO DAILY [facility] Stop: 01/15/19 08:59 Last Admin: 11/16/18 08:34 Dose: 250 mg Haloperidol Decanoate (Haldol Dec) 50 mg IM QMONTH [facility] Stop: 02/03/19 08:59 Last Admin: 11/16/18 13:02 Dose: Not Given Ceftriaxone Sodium 1 gm/ (Sodium Chloride) 50 mls @ 100 mls/hr IV Q24HR [facility] Stop: 01/14/19 13:59 Last Admin: 11/15/18 14:20 Dose: 100 mls/hr Lactulose (Cephulac) 10 gm PO QID [facility] Stop: 01/14/19 16:59 Last Admin: 11/16/18 08:35 Dose: 10 gm Levetiracetam (Keppra) 1,000 mg PO HS [facility] Stop: 01/14/19 20:59 Last Admin: 11/15/18 20:31 Dose: 1,000 mg Losartan Potassium (Cozaar) 50 mg PO DAILY [facility] Stop: 01/15/19 08:59 Last Admin: 11/16/18 08:35 Dose: 50 mg Olanzapine (Zyprexa Zydis) 10 mg PO HS [facility]; Protocol Stop: 01/14/19 20:59 Simvastatin (Zocor) 20 mg PO HS [facility]; Protocol Stop: 01/14/19 20:59 Last Admin: 11/15/18 20:31 Dose: 20 mg - Procedures Procedures: Procedures Procedure Code Date BIOPSY EYELID & LID MARGIN 31901 10/04/98 EYELID BIOPSY 08.11 10/04/98 OTHER LOCAL DESTRUC SKIN 86.3 10/11/08 REMOVAL OF SKIN TAGS <W/15 45286 10/11/08
[2018-11-16] MEDS: cefTRIAXone 1 GM in Sodium Chloride 0.9% 50 ML IV SCH (14:43)
--- NOTE | 2018-11-16 16:06 | General Progress Note ---
Subjective - Review of Systems Service Date: 11/16/18 Subjective: sleeping, comfortable Objective - Results Result Diagrams: 11/16/18 05:15 11/16/18 05:15 Recent Labs: Laboratory Last Values WBC 5.6 Th/cmm (4.8-10.8) 11/16/18 05:15 RBC 4.87 Mil/cmm (3.80-5.80) 11/16/18 05:15 Hgb 14.3 gm/dL (12-16) 11/16/18 05:15 Hct 44.2 % (41.0-60) 11/16/18 05:15 MCV 90.7 fl (80-99) 11/16/18 05:15 MCH 29.4 pg (27.0-31.0) 11/16/18 05:15 MCHC Differential 32.4 pg (28.0-36.0) 11/16/18 05:15 RDW 12.8 % (11.5-20.0) 11/16/18 05:15 Plt Count 243 Th/cmm (150-400) 11/16/18 05:15 MPV 8.0 fl 11/16/18 05:15 Neutrophils % 62.5 % (40.0-80.0) 11/16/18 05:15 Lymphocytes % 26.0 % (20.0-50.0) 11/16/18 05:15 Monocytes % 8.0 % (2.0-10.0) 11/16/18 05:15 Eosinophils % 3.5 % (0.0-5.0) 11/16/18 05:15 Basophils % 0.0 % (0.0-2.0) 11/16/18 05:15 Sodium 128 mEq/L (136-145) L 11/16/18 05:15 Potassium 3.8 mEq/L (3.5-5.1) 11/16/18 05:15 Chloride 95 mEq/L (98-107) L 11/16/18 05:15 Carbon Dioxide 25.0 mEq/L (21.0-31.0) 11/16/18 05:15 Anion Gap 11.8 (7.0-16.0) 11/16/18 05:15 BUN 9 mg/dL (7-25) 11/16/18 05:15 Creatinine 0.7 mg/dL (0.7-1.3) 11/16/18 05:15 Est GFR ( Amer) > 60.0 ml/min (>90) 11/16/18 05:15 Est GFR (Non-Af Amer) > 60.0 ml/min 11/16/18 05:15 BUN/Creatinine Ratio 12.9 11/16/18 05:15 Glucose 97 mg/dL (70-105) 11/16/18 05:15 POC Glucose 109 MG/DL (70 - 105) H 11/15/18 11:58 Uric Acid 2.6 mg/dL (4.4-7.6) L 11/16/18 05:15 Calcium 9.2 mg/dL (8.6-10.3) 11/16/18 05:15 Phosphorus 3.5 mg/dL (2.5-5.0) 11/16/18 05:15 Magnesium 2.2 mg/dL (1.9-2.7) 11/16/18 05:15 Total Bilirubin 0.4 mg/dL (0.3-1.0) 11/15/18 06:06 AST 11 U/L (13-39) L 11/15/18 06:06 ALT 13 U/L (7-52) 11/15/18 06:06 Alkaline Phosphatase 69 U/L (34-104) 11/15/18 06:06 Ammonia 72 umol/L (16-53) H 11/14/18 23:53 Total Protein 7.1 gm/dL (6.0-8.3) 11/15/18 06:06 Albumin 4.1 gm/dL (4.2-5.5) L 11/15/18 06:06 Globulin 3.0 gm/dL 11/15/18 06:06 Albumin/Globulin Ratio 1.4 (1.0-1.8) 11/15/18 06:06 TSH 1.88 uIU/ml (0.34-5.60) 11/16/18 05:15 Urine Source CATH 11/15/18 01:17 Urine Color YELLOW 11/15/18 01:17 Urine Clarity HAZY (CLEAR) 11/15/18 01:17 Urine pH 7.0 (4.6 - 8.0) 11/15/18 01:17 Ur Specific [place] 1.010 (1.005-1.030) 11/15/18 01:17 Urine Protein NEGATIVE mg/dL (NEGATIVE) 11/15/18 01:17 Urine Glucose (UA) NEGATIVE mg/dL (NEGATIVE) 11/15/18 01:17 Urine Ketones NEGATIVE mg/dL (NEGATIVE) 11/15/18 01:17 Urine Blood TRACE (NEGATIVE) 11/15/18 01:17 Urine Nitrate NEGATIVE (NEGATIVE) 11/15/18 01:17 Urine Bilirubin NEGATIVE (NEGATIVE) 11/15/18 01:17 Urine Urobilinogen 0.2 E.U./dL (0.2 - 1.0) 11/15/18 01:17 Ur Leukocyte Esterase LARGE (NEGATIVE) H 11/15/18 01:17 Urine RBC 0-2 /hpf (0-5) H 11/15/18 01:17 Urine WBC 10-25 /hpf (0-5) H 11/15/18 01:17 Ur Epithelial Cells OCCASIONAL /lpf (FEW) 11/15/18 01:17 Urine Bacteria FEW /hpf (NONE SEEN) 11/15/18 01:17 Ur Random Sodium 66 mmol/L 11/15/18 16:35 - Physical Exam Vitals and I&O: Vital Signs Temp 97.9 F 11/16/18 12:00 Pulse 73 11/16/18 12:00 Resp 18 11/16/18 15:50 BP 135/65 11/16/18 12:00 Pulse Ox 96 11/16/18 12:00 Intake & Output 11/15/18 11/16/18 11/16/18 18:59 06:59 18:59 Intake Total 450 400 Balance 450 400 Weight (lbs) 103.419 kg 103.419 kg Intake: Intake, IV Amount 50 [id number] 1 gm In 50 Sodium Chloride 0.9% 50 ml @ 100 mls/hr IV Q24HR [facility] Rx#:[id number] Oral 400 400 Other: # Voids 5 2 # Bowel Movements 1 2 Stool Characteristics Soft Formed Weight Source Bedscale Bedscale Active Medications: Current Medications Carbamazepine (Tegretol) 200 mg PO TID [facility]; Protocol Stop: 01/14/19 13:59 Last Admin: 11/16/18 14:18 Dose: 200 mg Citalopram Hydrobromide (Celexa) 20 mg PO QAM [facility]; Protocol Stop: 01/15/19 11:59 Last Admin: 11/16/18 14:17 Dose: 20 mg Docusate Sodium (Colace) 250 mg PO DAILY [facility] Stop: 01/15/19 08:59 Last Admin: 11/16/18 08:34 Dose: 250 mg Haloperidol Decanoate (Haldol Dec) 50 mg IM QMONTH [facility] Stop: 02/03/19 08:59 Last Admin: 11/16/18 13:02 Dose: Not Given Ceftriaxone Sodium 1 gm/ (Sodium Chloride) 50 mls @ 100 mls/hr IV Q24HR [facility] Stop: 01/14/19 13:59 Last Admin: 11/16/18 14:43 Dose: 100 mls/hr Lactulose (Cephulac) 10 gm PO QID [facility] Stop: 01/14/19 16:59 Last Admin: 11/16/18 14:17 Dose: 10 gm Levetiracetam (Keppra) 1,000 mg PO HS [facility] Stop: 01/14/19 20:59 Last Admin: 11/15/18 20:31 Dose: 1,000 mg Losartan Potassium (Cozaar) 50 mg PO DAILY [facility] Stop: 01/15/19 08:59 Last Admin: 11/16/18 08:35 Dose: 50 mg Olanzapine (Zyprexa Zydis) 10 mg PO HS [facility]; Protocol Stop: 01/14/19 20:59 Simvastatin (Zocor) 20 mg PO HS [facility]; Protocol Stop: 01/14/19 20:59 Last Admin: 11/15/18 20:31 Dose: 20 mg General: No acute distress HEENT: Atraumatic, Mucous membr. moist/pink Neck: Supple, +2 carotid pulse wo bruit Cardiovascular: Regular rate, Normal S1, Normal S2 Lungs: Clear to auscultation Abdomen: Bowel sounds, Soft Extremities: no Edema Neurological: Sensation intact Skin: no Rash Psych/Mental Status: Mood NL - Procedures Procedures: Procedures Procedure Code Date BIOPSY EYELID & LID MARGIN 62000 10/04/98 EYELID BIOPSY 08.11 10/04/98 OTHER LOCAL DESTRUC SKIN 86.3 10/11/08 REMOVAL OF SKIN TAGS <W/15 48954 10/11/08 Assessment/Plan - Assessment Assessment: SIADH Epilepsy Elevated NH3 Cx UTI Ess Htn Dyslipidemia - Plan Plan: Lab - Result Diagrams 11/16/18 05:15 11/16/18 05:15 Current Medications Carbamazepine (Tegretol) 200 mg PO TID [facility]; Protocol Stop: 01/14/19 13:59 Last Admin: 11/16/18 14:18 Dose: 200 mg Citalopram Hydrobromide (Celexa) 20 mg PO QAM [facility]; Protocol Stop: 01/15/19 11:59 Last Admin: 11/16/18 14:17 Dose: 20 mg Docusate Sodium (Colace) 250 mg PO DAILY [facility] Stop: 01/15/19 08:59 Last Admin: 11/16/18 08:34 Dose: 250 mg Haloperidol Decanoate (Haldol Dec) 50 mg IM QMONTH [facility] Stop: 02/03/19 08:59 Last Admin: 11/16/18 13:02 Dose: Not Given Ceftriaxone Sodium 1 gm/ (Sodium Chloride) 50 mls @ 100 mls/hr IV Q24HR [facility] Stop: 01/14/19 13:59 Last Admin: 11/16/18 14:43 Dose: 100 mls/hr Lactulose (Cephulac) 10 gm PO QID [facility] Stop: 01/14/19 16:59 Last Admin: 11/16/18 14:17 Dose: 10 gm Levetiracetam (Keppra) 1,000 mg PO HS [facility] Stop: 01/14/19 20:59 Last Admin: 11/15/18 20:31 Dose: 1,000 mg Losartan Potassium (Cozaar) 50 mg PO DAILY [facility] Stop: 01/15/19 08:59 Last Admin: 11/16/18 08:35 Dose: 50 mg Olanzapine (Zyprexa Zydis) 10 mg PO HS [facility]; Protocol Stop: 01/14/19 20:59 Simvastatin (Zocor) 20 mg PO HS [facility]; Protocol Stop: 01/14/19 20:59 Last Admin: 11/15/18 20:31 Dose: 20 mg Lab - Result Diagrams 11/16/18 05:15 11/16/18 05:15 Na level basically the same again consider switch Tegretol to another anti epileptic med f/u electyrolytes
[2018-11-16] MEDS: OLANZapine 10 mg Oral Disintegrating Tab PO SCH (20:19)
--- NOTE | 2018-11-16 23:22 | Consultation ---
DATE OF CONSULTATION: 11/16/2018 IDENTIFYING INFORMATION: The patient is a 68-year-old male. HISTORY OF PRESENT ILLNESS: I was asked to see this patient because of history of psychotic disorder, schizophrenia. The patient himself was a poor historian. He was stuporous. The patient came in because he has hyponatremia, also has a seizure disorder. The patient has been on Zyprexa 7.5 mg at bedtime. The patient is unable to participate in a meaningful conversation or make safe plan for self-care. PAST PSYCHIATRIC HISTORY: History of psychotic illness. Unable to get more information from the patient. MEDICAL HISTORY: Deferred to the medical doctor. FAMILY AND SOCIAL HISTORY: Unobtainable because of his current situation. MENTAL STATUS EXAMINATION: The patient was somewhat stuporous and unable to engage in a meaningful conversation or make safe plan for self-care with a history of psychosis. He is unable to tell me how he sleep or eat, unable to answer questions ____ suicide, homicide. His insight and judgment is impaired. IMPRESSION: Psychosis, not otherwise specified, rule out schizophrenia. I would recommend continue medication. The patient needs follow up with the psychiatrist on discharge. I am covering for Dr. Bauer. Dr. Bauer will follow up with him. Thank you very much for allowing me to participate in the care of this most interesting gentleman. [facility]# [id number]
[2018-11-17 06:35] LABS: BASOPHILE ABSOLUTE 0.2 Th/cumm (0-0.2); EOSINOPHILE ABSOLUTE 0.3 Th/cmm (0.1-0.4); MEAN CORPUSCULAR HEMOGLOBIN 30.1 pg (27.0-31.0); MONOCYTE ABSOLUTE 0.5 Th/cmm (0.3-1.0); NEUTROPHILE ABSOLUTE 5.8 Th/cmm (1.8-8.0)
[2018-11-17 06:39] LABS: % BASOPHILS 2.6 % (0.0-2.0); % EOSINOPHILS 3.8 % (0.0-5.0); % LYMPHOCYTES 12.4 % (20.0-50.0); % MONOCYTES 6.7 % (2.0-10.0); % NEUTROPHILS 74.5 % (40.0-80.0); HEMATOCRIT 42.6 % (41.0-60); HEMOGLOBIN 14.4 gm/dL (12-16); MEAN CELL VOLUME 89.1 fl (80-99); MEAN CORPUSCULAR HGB CONC 33.7 pg (28.0-36.0); PLATELET COUNT 230 Th/cmm (150-400); RED BLOOD COUNT 4.78 Mil/cmm (3.80-5.80); RED CELL DISTRIBUTION WIDTH 12.7 % (11.5-20.0); WHITE BLOOD COUNT 7.8 Th/cmm (4.8-10.8)
[2018-11-17 07:32] LABS: ANION GAP 13.3 (7.0-16.0); BUN - UREA NITROGEN 12 mg/dL (7-25); CALCIUM SERUM 9.3 mg/dL (8.6-10.3); CARBON DIOXIDE 23.9 mEq/L (21.0-31.0); CHLORIDE 97 mEq/L (98-107); CREATININE - SERUM 0.8 mg/dL (0.7-1.3); GFR AFRICAN-AMERICAN > 60.0 ml/min (>90); GFR NON AFRICAN-AMERICAN > 60.0 ml/min; GLUCOSE 93 mg/dL (70-105); POTASSIUM SERUM 4.2 mEq/L (3.5-5.1); SODIUM SERUM 130 mEq/L (136-145)
[2018-11-17] MEDS: Lactulose 10 Gm/15 mL 30mL UDC PO SCH ×4 (09:01→21:31)
--- NOTE | 2018-11-17 13:53 | General Progress Note ---
Subjective - Review of Systems Service Date: 11/17/18 Subjective: sleeping, comfortable Objective - Results Result Diagrams: 11/17/18 06:05 11/17/18 06:05 Recent Labs: Laboratory Last Values WBC 7.8 Th/cmm (4.8-10.8) 11/17/18 06:05 RBC 4.78 Mil/cmm (3.80-5.80) 11/17/18 06:05 Hgb 14.4 gm/dL (12-16) 11/17/18 06:05 Hct 42.6 % (41.0-60) 11/17/18 06:05 MCV 89.1 fl (80-99) 11/17/18 06:05 MCH 30.1 pg (27.0-31.0) 11/17/18 06:05 MCHC Differential 33.7 pg (28.0-36.0) 11/17/18 06:05 RDW 12.7 % (11.5-20.0) 11/17/18 06:05 Plt Count 230 Th/cmm (150-400) 11/17/18 06:05 MPV 8.0 fl 11/17/18 06:05 Neutrophils % 74.5 % (40.0-80.0) 11/17/18 06:05 Lymphocytes % 12.4 % (20.0-50.0) L 11/17/18 06:05 Monocytes % 6.7 % (2.0-10.0) 11/17/18 06:05 Eosinophils % 3.8 % (0.0-5.0) 11/17/18 06:05 Basophils % 2.6 % (0.0-2.0) H 11/17/18 06:05 Sodium 130 mEq/L (136-145) L 11/17/18 06:05 Potassium 4.2 mEq/L (3.5-5.1) 11/17/18 06:05 Chloride 97 mEq/L (98-107) L 11/17/18 06:05 Carbon Dioxide 23.9 mEq/L (21.0-31.0) 11/17/18 06:05 Anion Gap 13.3 (7.0-16.0) 11/17/18 06:05 BUN 12 mg/dL (7-25) 11/17/18 06:05 Creatinine 0.8 mg/dL (0.7-1.3) 11/17/18 06:05 Est GFR ( Amer) > 60.0 ml/min (>90) 11/17/18 06:05 Est GFR (Non-Af Amer) > 60.0 ml/min 11/17/18 06:05 BUN/Creatinine Ratio 15.0 11/17/18 06:05 Glucose 93 mg/dL (70-105) 11/17/18 06:05 POC Glucose 109 MG/DL (70 - 105) H 11/15/18 11:58 Uric Acid 2.6 mg/dL (4.4-7.6) L 11/16/18 05:15 Calcium 9.3 mg/dL (8.6-10.3) 11/17/18 06:05 Phosphorus 3.5 mg/dL (2.5-5.0) 11/16/18 05:15 Magnesium 2.2 mg/dL (1.9-2.7) 11/16/18 05:15 Total Bilirubin 0.4 mg/dL (0.3-1.0) 11/15/18 06:06 AST 11 U/L (13-39) L 11/15/18 06:06 ALT 13 U/L (7-52) 11/15/18 06:06 Alkaline Phosphatase 69 U/L (34-104) 11/15/18 06:06 Ammonia 53 umol/L (16-53) 11/17/18 06:05 Total Protein 7.1 gm/dL (6.0-8.3) 11/15/18 06:06 Albumin 4.1 gm/dL (4.2-5.5) L 11/15/18 06:06 Globulin 3.0 gm/dL 11/15/18 06:06 Albumin/Globulin Ratio 1.4 (1.0-1.8) 11/15/18 06:06 TSH 1.88 uIU/ml (0.34-5.60) 11/16/18 05:15 Urine Source CATH 11/15/18 01:17 Urine Color YELLOW 11/15/18 01:17 Urine Clarity HAZY (CLEAR) 11/15/18 01:17 Urine pH 7.0 (4.6 - 8.0) 11/15/18 01:17 Ur Specific [place] 1.010 (1.005-1.030) 11/15/18 01:17 Urine Protein NEGATIVE mg/dL (NEGATIVE) 11/15/18 01:17 Urine Glucose (UA) NEGATIVE mg/dL (NEGATIVE) 11/15/18 01:17 Urine Ketones NEGATIVE mg/dL (NEGATIVE) 11/15/18 01:17 Urine Blood TRACE (NEGATIVE) 11/15/18 01:17 Urine Nitrate NEGATIVE (NEGATIVE) 11/15/18 01:17 Urine Bilirubin NEGATIVE (NEGATIVE) 11/15/18 01:17 Urine Urobilinogen 0.2 E.U./dL (0.2 - 1.0) 11/15/18 01:17 Ur Leukocyte Esterase LARGE (NEGATIVE) H 11/15/18 01:17 Urine RBC 0-2 /hpf (0-5) H 11/15/18 01:17 Urine WBC 10-25 /hpf (0-5) H 11/15/18 01:17 Ur Epithelial Cells OCCASIONAL /lpf (FEW) 11/15/18 01:17 Urine Bacteria FEW /hpf (NONE SEEN) 11/15/18 01:17 Urine Osmolality 408 mOsmol/kg 11/15/18 16:35 Ur Random Sodium 66 mmol/L 11/15/18 16:35 Carbamazepine 7.1 ug/ml (4.0-12.0) 11/17/18 06:05 - Physical Exam Vitals and I&O: Vital Signs Temp 96.2 F 11/17/18 11:32 Pulse 62 11/17/18 11:32 Resp 18 11/17/18 11:32 BP 121/53 11/17/18 11:32 Pulse Ox 97 11/17/18 11:32 Intake & Output 11/16/18 11/17/18 11/17/18 18:59 06:59 18:59 Intake Total 450 300 Balance 450 300 Weight (lbs) 103.419 kg 103.419 kg 103.419 kg Intake: Oral 450 300 Other: # Voids 4 2 # Bowel Movements 0 1 Stool Characteristics Soft Formed Weight Source Bedscale Bedscale Bedscale Active Medications: Current Medications Citalopram Hydrobromide (Celexa) 20 mg PO [facility]; Protocol Stop: 01/15/19 11:59 Last Admin: 11/17/18 09:00 Dose: 20 mg Docusate Sodium (Colace) 250 mg PO DAILY [facility] Stop: 01/15/19 08:59 Last Admin: 11/17/18 09:01 Dose: 250 mg Haloperidol Decanoate (Haldol Dec) 50 mg IM QMONTH [facility] Stop: 02/03/19 08:59 Last Admin: 11/16/18 13:02 Dose: Not Given Ceftriaxone Sodium 1 gm/ (Sodium Chloride) 50 mls @ 100 mls/hr IV Q24HR [facility] Stop: 01/14/19 13:59 Last Admin: 11/16/18 14:43 Dose: 100 mls/hr Lactulose (Cephulac) 10 gm PO QID [facility] Stop: 01/14/19 16:59 Last Admin: 11/17/18 09:01 Dose: 10 gm Levetiracetam (Keppra) 1,000 mg PO HS [facility] Stop: 01/14/19 20:59 Last Admin: 11/16/18 20:20 Dose: 1,000 mg Losartan Potassium (Cozaar) 50 mg PO DAILY [facility] Stop: 01/15/19 08:59 Last Admin: 11/17/18 09:00 Dose: 50 mg Olanzapine (Zyprexa Zydis) 10 mg PO HS [facility]; Protocol Stop: 01/14/19 20:59 Last Admin: 11/16/18 20:19 Dose: 10 mg Phenytoin (Dilantin) 100 mg PO TID [facility] Stop: 01/16/19 16:59 Simvastatin (Zocor) 20 mg PO HS [facility]; Protocol Stop: 01/14/19 20:59 Last Admin: 11/16/18 20:19 Dose: 20 mg General: No acute distress HEENT: Atraumatic, Mucous membr. 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 Elevated NH3 Cx UTI Ess Htn Dyslipidemia - Plan Plan: Lab - Result Diagrams 11/16/18 05:15 11/16/18 05:15 Current Medications Carbamazepine (Tegretol) 200 mg PO TID [facility]; Protocol Stop: 01/14/19 13:59 Last Admin: 11/16/18 14:18 Dose: 200 mg Citalopram Hydrobromide (Celexa) 20 mg PO QAM [facility]; Protocol Stop: 01/15/19 11:59 Last Admin: 11/16/18 14:17 Dose: 20 mg Docusate Sodium (Colace) 250 mg PO DAILY [facility] Stop: 01/15/19 08:59 Last Admin: 11/16/18 08:34 Dose: 250 mg Haloperidol Decanoate (Haldol Dec) 50 mg IM QMONTH [facility] Stop: 02/03/19 08:59 Last Admin: 11/16/18 13:02 Dose: Not Given Ceftriaxone Sodium 1 gm/ (Sodium Chloride) 50 mls @ 100 mls/hr IV Q24HR [facility] Stop: 01/14/19 13:59 Last Admin: 11/16/18 14:43 Dose: 100 mls/hr Lactulose (Cephulac) 10 gm PO QID [facility] Stop: 01/14/19 16:59 Last Admin: 11/16/18 14:17 Dose: 10 gm Levetiracetam (Keppra) 1,000 mg PO HS [facility] Stop: 01/14/19 20:59 Last Admin: 11/15/18 20:31 Dose: 1,000 mg Losartan Potassium (Cozaar) 50 mg PO DAILY [facility] Stop: 01/15/19 08:59 Last Admin: 11/16/18 08:35 Dose: 50 mg Olanzapine (Zyprexa Zydis) 10 mg PO HS [facility]; Protocol Stop: 01/14/19 20:59 Simvastatin (Zocor) 20 mg PO HS [facility]; Protocol Stop: 01/14/19 20:59 Last Admin: 11/15/18 20:31 Dose: 20 mg Lab - Result Diagrams 11/17/18 06:05 11/17/18 06:05 Na better @ 130 agree w/ DC Tegretol f/u electyrolytes
[2018-11-17] MEDS: cefTRIAXone 1 GM in Sodium Chloride 0.9% 50 ML IV SCH (14:00)
--- NOTE | 2018-11-17 18:34 | Internal Medicine Prog Note ---
Internal Medicine Subjective - Subjective Service Date: 11/17/18 Patient is:: in bed, other (lethargic) Per staff patient has:: tolerating meds Internal Medicine Objective - Results Result Diagrams: 11/17/18 06:05 11/17/18 06:05 Recent Labs: Laboratory Last Values WBC 7.8 Th/cmm (4.8-10.8) 11/17/18 06:05 RBC 4.78 Mil/cmm (3.80-5.80) 11/17/18 06:05 Hgb 14.4 gm/dL (12-16) 11/17/18 06:05 Hct 42.6 % (41.0-60) 11/17/18 06:05 MCV 89.1 fl (80-99) 11/17/18 06:05 MCH 30.1 pg (27.0-31.0) 11/17/18 06:05 MCHC Differential 33.7 pg (28.0-36.0) 11/17/18 06:05 RDW 12.7 % (11.5-20.0) 11/17/18 06:05 Plt Count 230 Th/cmm (150-400) 11/17/18 06:05 MPV 8.0 fl 11/17/18 06:05 Neutrophils % 74.5 % (40.0-80.0) 11/17/18 06:05 Lymphocytes % 12.4 % (20.0-50.0) L 11/17/18 06:05 Monocytes % 6.7 % (2.0-10.0) 11/17/18 06:05 Eosinophils % 3.8 % (0.0-5.0) 11/17/18 06:05 Basophils % 2.6 % (0.0-2.0) H 11/17/18 06:05 Sodium 130 mEq/L (136-145) L 11/17/18 06:05 Potassium 4.2 mEq/L (3.5-5.1) 11/17/18 06:05 Chloride 97 mEq/L (98-107) L 11/17/18 06:05 Carbon Dioxide 23.9 mEq/L (21.0-31.0) 11/17/18 06:05 Anion Gap 13.3 (7.0-16.0) 11/17/18 06:05 BUN 12 mg/dL (7-25) 11/17/18 06:05 Creatinine 0.8 mg/dL (0.7-1.3) 11/17/18 06:05 Est GFR ( Amer) > 60.0 ml/min (>90) 11/17/18 06:05 Est GFR (Non-Af Amer) > 60.0 ml/min 11/17/18 06:05 BUN/Creatinine Ratio 15.0 11/17/18 06:05 Glucose 93 mg/dL (70-105) 11/17/18 06:05 POC Glucose 109 MG/DL (70 - 105) H 11/15/18 11:58 Uric Acid 2.6 mg/dL (4.4-7.6) L 11/16/18 05:15 Calcium 9.3 mg/dL (8.6-10.3) 11/17/18 06:05 Phosphorus 3.5 mg/dL (2.5-5.0) 11/16/18 05:15 Magnesium 2.2 mg/dL (1.9-2.7) 11/16/18 05:15 Total Bilirubin 0.4 mg/dL (0.3-1.0) 11/15/18 06:06 AST 11 U/L (13-39) L 11/15/18 06:06 ALT 13 U/L (7-52) 11/15/18 06:06 Alkaline Phosphatase 69 U/L (34-104) 11/15/18 06:06 Ammonia 53 umol/L (16-53) 11/17/18 06:05 Total Protein 7.1 gm/dL (6.0-8.3) 11/15/18 06:06 Albumin 4.1 gm/dL (4.2-5.5) L 11/15/18 06:06 Globulin 3.0 gm/dL 11/15/18 06:06 Albumin/Globulin Ratio 1.4 (1.0-1.8) 11/15/18 06:06 TSH 1.88 uIU/ml (0.34-5.60) 11/16/18 05:15 Urine Source CATH 11/15/18 01:17 Urine Color YELLOW 11/15/18 01:17 Urine Clarity HAZY (CLEAR) 11/15/18 01:17 Urine pH 7.0 (4.6 - 8.0) 11/15/18 01:17 Ur Specific [place] 1.010 (1.005-1.030) 11/15/18 01:17 Urine Protein NEGATIVE mg/dL (NEGATIVE) 11/15/18 01:17 Urine Glucose (UA) NEGATIVE mg/dL (NEGATIVE) 11/15/18 01:17 Urine Ketones NEGATIVE mg/dL (NEGATIVE) 11/15/18 01:17 Urine Blood TRACE (NEGATIVE) 11/15/18 01:17 Urine Nitrate NEGATIVE (NEGATIVE) 11/15/18 01:17 Urine Bilirubin NEGATIVE (NEGATIVE) 11/15/18 01:17 Urine Urobilinogen 0.2 E.U./dL (0.2 - 1.0) 11/15/18 01:17 Ur Leukocyte Esterase LARGE (NEGATIVE) H 11/15/18 01:17 Urine RBC 0-2 /hpf (0-5) H 11/15/18 01:17 Urine WBC 10-25 /hpf (0-5) H 11/15/18 01:17 Ur Epithelial Cells OCCASIONAL /lpf (FEW) 11/15/18 01:17 Urine Bacteria FEW /hpf (NONE SEEN) 11/15/18 01:17 Urine Osmolality 408 mOsmol/kg 11/15/18 16:35 Ur Random Sodium 66 mmol/L 11/15/18 16:35 Carbamazepine 7.1 ug/ml (4.0-12.0) 11/17/18 06:05 - Physical Exam Vitals and I&O: Vital Signs Temp 97.6 F 11/17/18 15:37 Pulse 69 11/17/18 15:37 Resp 18 11/17/18 15:56 BP 110/48 11/17/18 15:37 Pulse Ox 96 11/17/18 15:37 Intake & Output 11/16/18 11/17/18 11/17/18 18:59 06:59 18:59 Intake Total 500 300 400 Balance 500 300 400 Weight (lbs) 228 lb 228 lb 228 lb Intake: Intake, IV Amount 50 cefTRIAXone 1 gm In 50 Sodium Chloride 0.9% 50 ml @ 100 mls/hr IV Q24HR [facility] Rx#:[id number] Oral 450 300 400 Other: # Voids 4 2 3 # Bowel Movements 0 1 1 Stool Characteristics Soft Formed Weight Source Bedscale Bedscale Bedscale Active Medications: Current Medications Citalopram Hydrobromide (Celexa) 20 mg PO QAM [facility]; Protocol Stop: 01/15/19 11:59 Last Admin: 11/17/18 09:00 Dose: 20 mg Docusate Sodium (Colace) 250 mg PO DAILY [facility] Stop: 01/15/19 08:59 Last Admin: 11/17/18 09:01 Dose: 250 mg Haloperidol Decanoate (Haldol Dec) 50 mg IM QMONTH [facility] Stop: 02/03/19 08:59 Last Admin: 11/16/18 13:02 Dose: Not Given Ceftriaxone Sodium 1 gm/ (Sodium Chloride) 50 mls @ 100 mls/hr IV Q24HR [facility] Stop: 01/14/19 13:59 Last Admin: 11/17/18 14:00 Dose: 100 mls/hr Lactulose (Cephulac) 10 gm PO QID [facility] Stop: 01/14/19 16:59 Last Admin: 11/17/18 17:12 Dose: 10 gm Levetiracetam (Keppra) 1,000 mg PO HS [facility] Stop: 01/14/19 20:59 Last Admin: 11/16/18 20:20 Dose: 1,000 mg Losartan Potassium (Cozaar) 50 mg PO DAILY [facility] Stop: 01/15/19 08:59 Last Admin: 11/17/18 09:00 Dose: 50 mg Olanzapine (Zyprexa Zydis) 10 mg PO HS [facility]; Protocol Stop: 01/14/19 20:59 Last Admin: 11/16/18 20:19 Dose: 10 mg Phenytoin (Dilantin) 100 mg PO TID [facility] Stop: 01/16/19 16:59 Last Admin: 11/17/18 17:11 Dose: 100 mg Simvastatin (Zocor) 20 mg PO HS [facility]; Protocol Stop: 01/14/19 20:59 Last Admin: 11/16/18 20:19 Dose: 20 mg General: alert HEENT: NC/AT, PERRLA Neck: Supple Lungs: CTAB Cardiovascular: without murmur Abdomen: non-tender, non-distended - Procedures Procedures: Procedures Procedure Code Date BIOPSY EYELID & LID MARGIN 40689 10/04/98 EYELID BIOPSY 08.11 10/04/98 OTHER LOCAL DESTRUC SKIN 86.3 10/11/08 REMOVAL OF SKIN TAGS <W/15 45017 10/11/08 Internal Medicine Assmt/Plan - Assessment Assessment: Epilepsy SIADH uti htn weakness - Plan Plan: am labs fall precautions cpm
--- NOTE | 2018-11-17 19:09 | Progress Notes ---
DATE: 11/17/2018 SUBJECTIVE: Chart was reviewed and the patient interviewed. Also discussed the patient's condition with the staff and reviewed records and labs. The patient continued to be anxious and very slow to respond to questions. Also, still has episodes of irritability and agitation and mood swings. Also, still needs lots of redirections. Otherwise, the patient is compliant with taking his medications with no side effect of medications. ASSESSMENT: The patient is still agitated and still needs close monitoring. TREATMENT PLAN: We will continue to monitor his behavior and his condition closely. Also, we will get a Tegretol blood level and continue Zyprexa and Celexa and continue to follow up closely. [facility]# [id number]
[2018-11-17] MEDS: OLANZapine 10 mg Oral Disintegrating Tab PO SCH (21:30)
--- NOTE | 2018-11-18 06:25 | Progress Notes ---
DATE: 11/16/2018 SUBJECTIVE: Chart was reviewed and the patient interviewed. Also discussed the patient's condition with the staff and reviewed records and labs. The patient is still depressed and withdrawn. The patient also seems to be slightly sedated. The patient also is interacting minimally with peers and with others. He also have seems sedated even when staff tried to help him with his ADLs. He still seems to be sedated at that time. Otherwise, the patient is compliant with taking his medications with no side effects of medications. ASSESSMENT: The patient is sedated. TREATMENT PLAN: Tegretol blood level came back to be 7.1 and the Tegretol was stopped yesterday. We will decrease Celexa to 10 mg every day. Also, we will decrease Zyprexa to 5 mg twice a day. Hopefully that will help the patient to be more alert. At the same time, we will continue monitoring his behavior and we will continue to follow up closely. JOB# [id number]
[2018-11-18 06:45] LABS: % BASOPHILS 0.3 % (0.0-2.0); % EOSINOPHILS 6.5 % (0.0-5.0); % LYMPHOCYTES 24.3 % (20.0-50.0); % MONOCYTES 14.2 % (2.0-10.0); % NEUTROPHILS 54.7 % (40.0-80.0); EOSINOPHILE ABSOLUTE 0.4 Th/cmm (0.1-0.4); HEMATOCRIT 41.2 % (41.0-60); HEMOGLOBIN 13.4 gm/dL (12-16); LYMPHOCYTE ABSOLUTE 1.4 Th/cmm (1.5-3.0); MEAN CELL VOLUME 89.9 fl (80-99); MEAN CORPUSCULAR HEMOGLOBIN 29.2 pg (27.0-31.0); MEAN CORPUSCULAR HGB CONC 32.5 pg (28.0-36.0); MEAN PLATELET VOLUME 8.1 fl; MONOCYTE ABSOLUTE 0.8 Th/cmm (0.3-1.0); NEUTROPHILE ABSOLUTE 3.2 Th/cmm (1.8-8.0); PLATELET COUNT 239 Th/cmm (150-400); RED BLOOD COUNT 4.59 Mil/cmm (3.80-5.80); WHITE BLOOD COUNT 5.8 Th/cmm (4.8-10.8)
[2018-11-18 06:55] LABS: ANION GAP 10.6 (7.0-16.0); BUN - UREA NITROGEN 10 mg/dL (7-25); CARBON DIOXIDE 26.5 mEq/L (21.0-31.0); CHLORIDE 99 mEq/L (98-107); CREATININE - SERUM 0.7 mg/dL (0.7-1.3); GFR AFRICAN-AMERICAN > 60.0 ml/min (>90); GFR NON AFRICAN-AMERICAN > 60.0 ml/min; GLUCOSE 95 mg/dL (70-105); POTASSIUM SERUM 4.1 mEq/L (3.5-5.1); SODIUM SERUM 132 mEq/L (136-145)
[2018-11-18] MEDS: Lactulose 10 Gm/15 mL 30mL UDC PO SCH ×4 (09:06→21:03)
--- NOTE | 2018-11-18 11:26 | Internal Medicine Prog Note ---
Internal Medicine Subjective - Subjective Service Date: 11/18/18 Patient seen and examined:: with staff Patient is:: awake, in bed, other (withdrawn and depressed.) Patient Complaints of:: other (minimal interaction with peers and staff.) Per staff patient has:: no adverse event, no episodes of fall, tolerating meds Internal Medicine Objective - Results Result Diagrams: 11/18/18 05:40 11/18/18 05:40 Recent Labs: Laboratory Last Values WBC 5.8 Th/cmm (4.8-10.8) 11/18/18 05:40 RBC 4.59 Mil/cmm (3.80-5.80) 11/18/18 05:40 Hgb 13.4 gm/dL (12-16) 11/18/18 05:40 Hct 41.2 % (41.0-60) 11/18/18 05:40 MCV 89.9 fl (80-99) 11/18/18 05:40 MCH 29.2 pg (27.0-31.0) 11/18/18 05:40 MCHC Differential 32.5 pg (28.0-36.0) 11/18/18 05:40 RDW 13.0 % (11.5-20.0) 11/18/18 05:40 Plt Count 239 Th/cmm (150-400) 11/18/18 05:40 MPV 8.1 fl 11/18/18 05:40 Neutrophils % 54.7 % (40.0-80.0) 11/18/18 05:40 Lymphocytes % 24.3 % (20.0-50.0) 11/18/18 05:40 Monocytes % 14.2 % (2.0-10.0) H 11/18/18 05:40 Eosinophils % 6.5 % (0.0-5.0) H 11/18/18 05:40 Basophils % 0.3 % (0.0-2.0) 11/18/18 05:40 Sodium 132 mEq/L (136-145) L 11/18/18 05:40 Potassium 4.1 mEq/L (3.5-5.1) 11/18/18 05:40 Chloride 99 mEq/L (98-107) 11/18/18 05:40 Carbon Dioxide 26.5 mEq/L (21.0-31.0) 11/18/18 05:40 Anion Gap 10.6 (7.0-16.0) 11/18/18 05:40 BUN 10 mg/dL (7-25) 11/18/18 05:40 Creatinine 0.7 mg/dL (0.7-1.3) 11/18/18 05:40 Est GFR ( Amer) > 60.0 ml/min (>90) 11/18/18 05:40 Est GFR (Non-Af Amer) > 60.0 ml/min 11/18/18 05:40 BUN/Creatinine Ratio 14.3 11/18/18 05:40 Glucose 95 mg/dL (70-105) 11/18/18 05:40 POC Glucose 109 MG/DL (70 - 105) H 11/15/18 11:58 Uric Acid 2.6 mg/dL (4.4-7.6) L 11/16/18 05:15 Calcium 9.0 mg/dL (8.6-10.3) 11/18/18 05:40 Phosphorus 3.5 mg/dL (2.5-5.0) 11/16/18 05:15 Magnesium 2.2 mg/dL (1.9-2.7) 11/16/18 05:15 Total Bilirubin 0.4 mg/dL (0.3-1.0) 11/15/18 06:06 AST 11 U/L (13-39) L 11/15/18 06:06 ALT 13 U/L (7-52) 11/15/18 06:06 Alkaline Phosphatase 69 U/L (34-104) 11/15/18 06:06 Ammonia 70 umol/L (16-53) H 11/18/18 10:25 Total Protein 7.1 gm/dL (6.0-8.3) 11/15/18 06:06 Albumin 4.1 gm/dL (4.2-5.5) L 11/15/18 06:06 Globulin 3.0 gm/dL 11/15/18 06:06 Albumin/Globulin Ratio 1.4 (1.0-1.8) 11/15/18 06:06 TSH 1.88 uIU/ml (0.34-5.60) 11/16/18 05:15 Urine Source CATH 11/15/18 01:17 Urine Color YELLOW 11/15/18 01:17 Urine Clarity HAZY (CLEAR) 11/15/18 01:17 Urine pH 7.0 (4.6 - 8.0) 11/15/18 01:17 Ur Specific [place] 1.010 (1.005-1.030) 11/15/18 01:17 Urine Protein NEGATIVE mg/dL (NEGATIVE) 11/15/18 01:17 Urine Glucose (UA) NEGATIVE mg/dL (NEGATIVE) 11/15/18 01:17 Urine Ketones NEGATIVE mg/dL (NEGATIVE) 11/15/18 01:17 Urine Blood TRACE (NEGATIVE) 11/15/18 01:17 Urine Nitrate NEGATIVE (NEGATIVE) 11/15/18 01:17 Urine Bilirubin NEGATIVE (NEGATIVE) 11/15/18 01:17 Urine Urobilinogen 0.2 E.U./dL (0.2 - 1.0) 11/15/18 01:17 Ur Leukocyte Esterase LARGE (NEGATIVE) H 11/15/18 01:17 Urine RBC 0-2 /hpf (0-5) H 11/15/18 01:17 Urine WBC 10-25 /hpf (0-5) H 11/15/18 01:17 Ur Epithelial Cells OCCASIONAL /lpf (FEW) 11/15/18 01:17 Urine Bacteria FEW /hpf (NONE SEEN) 11/15/18 01:17 Urine Osmolality 408 mOsmol/kg 11/15/18 16:35 Ur Random Sodium 66 mmol/L 11/15/18 16:35 Carbamazepine 7.1 ug/ml (4.0-12.0) 11/17/18 06:05 Levetiracetam 13.1 ug/mL (10.0-40.0) 11/14/18 23:53 - Physical Exam Vitals and I&O: Vital Signs Temp 97 F 11/18/18 03:53 Pulse 59 11/18/18 09:04 Resp 18 11/18/18 04:00 BP 127/45 11/18/18 09:04 Pulse Ox 97 11/18/18 03:53 Intake & Output 11/17/18 11/18/18 11/18/18 18:59 06:59 18:59 Intake Total 400 Balance 400 Weight (lbs) 103.419 kg 103.419 kg Intake: Oral 400 Other: # Voids 3 1 # Bowel Movements 1 Weight Source Bedscale Bedscale Active Medications: Current Medications Citalopram Hydrobromide (Celexa) 10 mg PO QAM [facility]; Protocol Stop: 01/17/19 08:59 Last Admin: 11/18/18 09:05 Dose: 10 mg Docusate Sodium (Colace) 250 mg PO DAILY [facility] Stop: 01/15/19 08:59 Last Admin: 11/18/18 09:05 Dose: 250 mg Haloperidol Decanoate (Haldol Dec) 50 mg IM QMONTH [facility] Stop: 02/03/19 08:59 Last Admin: 11/16/18 13:02 Dose: Not Given Ceftriaxone Sodium 1 gm/ (Sodium Chloride) 50 mls @ 100 mls/hr IV Q24HR [facility] Stop: 01/14/19 13:59 Last Admin: 11/17/18 14:00 Dose: 100 mls/hr Lactulose (Cephulac) 10 gm PO QID [facility] Stop: 01/14/19 16:59 Last Admin: 11/18/18 09:06 Dose: 10 gm Levetiracetam (Keppra) 1,000 mg PO HS [facility] Stop: 01/14/19 20:59 Last Admin: 11/17/18 21:30 Dose: 1,000 mg Losartan Potassium (Cozaar) 50 mg PO DAILY [facility] Stop: 01/15/19 08:59 Last Admin: 11/18/18 09:04 Dose: Not Given Olanzapine (Zyprexa Zydis) 5 mg PO HS [facility]; Protocol Stop: 01/17/19 20:59 Phenytoin (Dilantin) 100 mg PO TID [facility] Stop: 01/16/19 16:59 Last Admin: 11/18/18 09:05 Dose: 100 mg Simvastatin (Zocor) 20 mg PO HS [facility]; Protocol Stop: 01/14/19 20:59 Last Admin: 11/17/18 21:31 Dose: 20 mg Physical Exam: 68 y/o male patient continues to be weak, withdrawn and in depressed mood. General: alert HEENT: NC/AT, PERRLA Neck: Supple Lungs: CTAB Cardiovascular: without murmur Abdomen: non-tender, non-distended Extremities: clear Neurological: no change, other (depressed mood.) - Procedures Procedures: Procedures Procedure Code Date BIOPSY EYELID & LID MARGIN 73666 10/04/98 EYELID BIOPSY 08.11 10/04/98 OTHER LOCAL DESTRUC SKIN 86.3 10/11/08 REMOVAL OF SKIN TAGS <W/15 32293 10/11/08 Internal Medicine Assmt/Plan - Assessment Assessment: UTI. Hyponatremia. Altered mental status, may be secondary to Hepatic encephalopathy. Metabolic encephalopathy. HTN Diabetes Mellitus type II. CHF. Dyslipidemia. Seizure disorder. Cirrhosis. Schizophrenia. Depression. - Plan Plan: Continuation of care. Monitor Labs and Urinalysis. Continue antibiotics and present meds as directed. Monitor Diet/Nutritional support. Monitor mental status progression. Monitor behavioral health status. Pain Management. Supportive care. Fall precaution, frequent nursing rounds, and as needed restraints to prevent fall. Continue collaborating with consulting specialists, case management and nursing team. Will Monitor patient and continue current treatment plan as ordered. Nutritional Asmnt/Malnutr-PDOC - Dietary Evaluation Malnutrition Findings (Please click <Entered> for more info): see orders.
[2018-11-18] MEDS: cefTRIAXone 1 GM in Sodium Chloride 0.9% 50 ML IV SCH (13:16)
--- NOTE | 2018-11-18 13:44 | General Progress Note ---
Subjective - Review of Systems Service Date: 11/18/18 Subjective: more awake, eating lunch, comfortable Objective - Results Result Diagrams: 11/18/18 05:40 11/18/18 05:40 Recent Labs: Laboratory Last Values WBC 5.8 Th/cmm (4.8-10.8) 11/18/18 05:40 RBC 4.59 Mil/cmm (3.80-5.80) 11/18/18 05:40 Hgb 13.4 gm/dL (12-16) 11/18/18 05:40 Hct 41.2 % (41.0-60) 11/18/18 05:40 MCV 89.9 fl (80-99) 11/18/18 05:40 MCH 29.2 pg (27.0-31.0) 11/18/18 05:40 MCHC Differential 32.5 pg (28.0-36.0) 11/18/18 05:40 RDW 13.0 % (11.5-20.0) 11/18/18 05:40 Plt Count 239 Th/cmm (150-400) 11/18/18 05:40 MPV 8.1 fl 11/18/18 05:40 Neutrophils % 54.7 % (40.0-80.0) 11/18/18 05:40 Lymphocytes % 24.3 % (20.0-50.0) 11/18/18 05:40 Monocytes % 14.2 % (2.0-10.0) H 11/18/18 05:40 Eosinophils % 6.5 % (0.0-5.0) H 11/18/18 05:40 Basophils % 0.3 % (0.0-2.0) 11/18/18 05:40 Sodium 132 mEq/L (136-145) L 11/18/18 05:40 Potassium 4.1 mEq/L (3.5-5.1) 11/18/18 05:40 Chloride 99 mEq/L (98-107) 11/18/18 05:40 Carbon Dioxide 26.5 mEq/L (21.0-31.0) 11/18/18 05:40 Anion Gap 10.6 (7.0-16.0) 11/18/18 05:40 BUN 10 mg/dL (7-25) 11/18/18 05:40 Creatinine 0.7 mg/dL (0.7-1.3) 11/18/18 05:40 Est GFR ( Amer) > 60.0 ml/min (>90) 11/18/18 05:40 Est GFR (Non-Af Amer) > 60.0 ml/min 11/18/18 05:40 BUN/Creatinine Ratio 14.3 11/18/18 05:40 Glucose 95 mg/dL (70-105) 11/18/18 05:40 POC Glucose 109 MG/DL (70 - 105) H 11/15/18 11:58 Uric Acid 2.6 mg/dL (4.4-7.6) L 11/16/18 05:15 Calcium 9.0 mg/dL (8.6-10.3) 11/18/18 05:40 Phosphorus 3.5 mg/dL (2.5-5.0) 11/16/18 05:15 Magnesium 2.2 mg/dL (1.9-2.7) 11/16/18 05:15 Total Bilirubin 0.4 mg/dL (0.3-1.0) 11/15/18 06:06 AST 11 U/L (13-39) L 11/15/18 06:06 ALT 13 U/L (7-52) 11/15/18 06:06 Alkaline Phosphatase 69 U/L (34-104) 11/15/18 06:06 Ammonia 70 umol/L (16-53) H 11/18/18 10:25 Total Protein 7.1 gm/dL (6.0-8.3) 11/15/18 06:06 Albumin 4.1 gm/dL (4.2-5.5) L 11/15/18 06:06 Globulin 3.0 gm/dL 11/15/18 06:06 Albumin/Globulin Ratio 1.4 (1.0-1.8) 11/15/18 06:06 TSH 1.88 uIU/ml (0.34-5.60) 11/16/18 05:15 Urine Source CATH 11/15/18 01:17 Urine Color YELLOW 11/15/18 01:17 Urine Clarity HAZY (CLEAR) 11/15/18 01:17 Urine pH 7.0 (4.6 - 8.0) 11/15/18 01:17 Ur Specific [place] 1.010 (1.005-1.030) 11/15/18 01:17 Urine Protein NEGATIVE mg/dL (NEGATIVE) 11/15/18 01:17 Urine Glucose (UA) NEGATIVE mg/dL (NEGATIVE) 11/15/18 01:17 Urine Ketones NEGATIVE mg/dL (NEGATIVE) 11/15/18 01:17 Urine Blood TRACE (NEGATIVE) 11/15/18 01:17 Urine Nitrate NEGATIVE (NEGATIVE) 11/15/18 01:17 Urine Bilirubin NEGATIVE (NEGATIVE) 11/15/18 01:17 Urine Urobilinogen 0.2 E.U./dL (0.2 - 1.0) 11/15/18 01:17 Ur Leukocyte Esterase LARGE (NEGATIVE) H 11/15/18 01:17 Urine RBC 0-2 /hpf (0-5) H 11/15/18 01:17 Urine WBC 10-25 /hpf (0-5) H 11/15/18 01:17 Ur Epithelial Cells OCCASIONAL /lpf (FEW) 11/15/18 01:17 Urine Bacteria FEW /hpf (NONE SEEN) 11/15/18 01:17 Urine Osmolality 408 mOsmol/kg 11/15/18 16:35 Ur Random Sodium 66 mmol/L 11/15/18 16:35 Carbamazepine 7.1 ug/ml (4.0-12.0) 11/17/18 06:05 Levetiracetam 13.1 ug/mL (10.0-40.0) 11/14/18 23:53 - Physical Exam Vitals and I&O: Vital Signs Temp 97 F 11/18/18 03:53 Pulse 59 11/18/18 09:04 Resp 18 11/18/18 04:00 BP 127/45 11/18/18 09:04 Pulse Ox 97 11/18/18 03:53 Intake & Output 11/17/18 11/18/18 11/18/18 18:59 06:59 18:59 Intake Total 450 Balance 450 Weight (lbs) 103.419 kg 103.419 kg Intake: Intake, IV Amount 50 cefTRIAXone 1 gm In 50 Sodium Chloride 0.9% 50 ml @ 100 mls/hr IV Q24HR [facility] Rx#:[id number] Oral 400 Other: # Voids 3 1 # Bowel Movements 1 Weight Source Bedscale Bedscale Active Medications: Current Medications Citalopram Hydrobromide (Celexa) 10 mg PO QAM [facility]; Protocol Stop: 01/17/19 08:59 Last Admin: 11/18/18 09:05 Dose: 10 mg Docusate Sodium (Colace) 250 mg PO DAILY [facility] Stop: 01/15/19 08:59 Last Admin: 11/18/18 09:05 Dose: 250 mg Haloperidol Decanoate (Haldol Dec) 50 mg IM QMONTH [facility] Stop: 02/03/19 08:59 Last Admin: 11/16/18 13:02 Dose: Not Given Ceftriaxone Sodium 1 gm/ (Sodium Chloride) 50 mls @ 100 mls/hr IV Q24HR [facility] Stop: 01/14/19 13:59 Last Admin: 11/18/18 13:16 Dose: 100 mls/hr Lactulose (Cephulac) 10 gm PO QID [facility] Stop: 01/14/19 16:59 Last Admin: 11/18/18 13:16 Dose: 10 gm Levetiracetam (Keppra) 1,000 mg PO HS [facility] Stop: 01/14/19 20:59 Last Admin: 11/17/18 21:30 Dose: 1,000 mg Losartan Potassium (Cozaar) 50 mg PO DAILY [facility] Stop: 01/15/19 08:59 Last Admin: 11/18/18 09:04 Dose: Not Given Olanzapine (Zyprexa Zydis) 5 mg PO HS [facility]; Protocol Stop: 01/17/19 20:59 Phenytoin (Dilantin) 100 mg PO TID [facility] Stop: 01/16/19 16:59 Last Admin: 11/18/18 13:16 Dose: 100 mg Simvastatin (Zocor) 20 mg PO HS [facility]; Protocol Stop: 01/14/19 20:59 Last Admin: 11/17/18 21:31 Dose: 20 mg General: Alert, No acute distress HEENT: Atraumatic, Mucous membr. 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 Epilepsy Elevated NH3 Cx UTI Ess Htn Dyslipidemia - Plan Plan: Lab - Result Diagrams 11/16/18 05:15 11/16/18 05:15 Current Medications Carbamazepine (Tegretol) 200 mg PO TID [facility]; Protocol Stop: 01/14/19 13:59 Last Admin: 11/16/18 14:18 Dose: 200 mg Citalopram Hydrobromide (Celexa) 20 mg PO QAM [facility]; Protocol Stop: 01/15/19 11:59 Last Admin: 11/16/18 14:17 Dose: 20 mg Docusate Sodium (Colace) 250 mg PO DAILY [facility] Stop: 01/15/19 08:59 Last Admin: 11/16/18 08:34 Dose: 250 mg Haloperidol Decanoate (Haldol Dec) 50 mg IM QMONTH [facility]LAINE Stop: 02/03/19 08:59 Last Admin: 11/16/18 13:02 Dose: Not Given Ceftriaxone Sodium 1 gm/ (Sodium Chloride) 50 mls @ 100 mls/hr IV Q24HR BLAINE Stop: 01/14/19 13:59 Last Admin: 11/16/18 14:43 Dose: 100 mls/hr Lactulose (Cephulac) 10 gm PO QID [facility]LAINE Stop: 01/14/19 16:59 Last Admin: 11/16/18 14:17 Dose: 10 gm Levetiracetam (Keppra) 1,000 mg PO HS BLAINE Stop: 01/14/19 20:59 Last Admin: 11/15/18 20:31 Dose: 1,000 mg Losartan Potassium (Cozaar) 50 mg PO DAILY BLAINE Stop: 01/15/19 08:59 Last Admin: 11/16/18 08:35 Dose: 50 mg Olanzapine (Zyprexa Zydis) 10 mg PO HS BLAINE; Protocol Stop: 01/14/19 20:59 Simvastatin (Zocor) 20 mg PO HS BLAINE; Protocol Stop: 01/14/19 20:59 Last Admin: 11/15/18 20:31 Dose: 20 mg Lab - Result Diagrams 11/18/18 05:40 11/18/18 05:40 Na better @ 132 agree w/ DC Tegretol f/u electyrolytes
[2018-11-18] MEDS ORDERED: OLANZapine 5 mg Oral Disintegrating Tab PO SCH (21:00)
[2018-11-19 07:04] LABS: ANION GAP 9.3 (7.0-16.0); BUN - UREA NITROGEN 11 mg/dL (7-25); CALCIUM SERUM 8.8 mg/dL (8.6-10.3); CARBON DIOXIDE 27.8 mEq/L (21.0-31.0); CHLORIDE 100 mEq/L (98-107); CREATININE - SERUM 0.8 mg/dL (0.7-1.3); GFR AFRICAN-AMERICAN > 60.0 ml/min (>90); GFR NON AFRICAN-AMERICAN > 60.0 ml/min; GLUCOSE 99 mg/dL (70-105); POTASSIUM SERUM 4.1 mEq/L (3.5-5.1); SODIUM SERUM 133 mEq/L (136-145)
[2018-11-19] MEDS: Lactulose 10 Gm/15 mL 30mL UDC PO SCH ×3 (08:44→17:27)
--- NOTE | 2018-11-19 08:53 | Progress Notes ---
DATE: 11/19/2018 DATE OF SERVICE: 11/19/2018 SUBJECTIVE: The patient was seen in his room. The patient is awake, but poor historian due to medical condition, appears to be weak and fragile. Otherwise, the patient appears to be in no acute distress. OBJECTIVE: VITAL SIGNS: Temperature 96.5, heart rate 68, blood pressure 102/66, respirations 18, and 98% on room air. HEENT: Head is atraumatic and normocephalic. EYES: Bilateral conjunctivae are clear. Bilateral pupils equal, round, reactive. NECK: Supple. No JVD. CARDIOVASCULAR: S1 and S2, without murmur. PULMONARY: Clear to auscultation. GASTROINTESTINAL: Soft and nontender without guarding. Positive bowel sounds. MUSCULOSKELETAL: No clubbing. No cyanosis noted. ASSESSMENT: 1. Urinary tract infection. 2. Syndrome of inappropriate antidiuretic hormone. 3. Hepatic encephalopathy. 4. Hypertension. 5. Diabetes. 6. Hyperlipidemia. 7. Seizure. 8. Schizophrenia. PLAN: We will continue current treatment. We will continue current antibiotics and monitor the patient's electrolytes. We will put the patient on seizure precaution and aspiration precaution. We are also going to initiate fall precaution for the patient. Treatment plans were discussed with the patient's nurse. Treatment plans were discussed with Dr. Wilson. JOB# [id number]
[2018-11-19] MEDS: cefTRIAXone 1 GM in Sodium Chloride 0.9% 50 ML IV SCH (13:59)
--- NOTE | 2018-11-19 15:32 | General Progress Note ---
Subjective - Review of Systems Service Date: 11/19/18 Subjective: more awake, comfortable Objective - Results Result Diagrams: 11/18/18 05:40 11/19/18 06:20 Recent Labs: Laboratory Last Values WBC 5.8 Th/cmm (4.8-10.8) 11/18/18 05:40 RBC 4.59 Mil/cmm (3.80-5.80) 11/18/18 05:40 Hgb 13.4 gm/dL (12-16) 11/18/18 05:40 Hct 41.2 % (41.0-60) 11/18/18 05:40 MCV 89.9 fl (80-99) 11/18/18 05:40 MCH 29.2 pg (27.0-31.0) 11/18/18 05:40 MCHC Differential 32.5 pg (28.0-36.0) 11/18/18 05:40 RDW 13.0 % (11.5-20.0) 11/18/18 05:40 Plt Count 239 Th/cmm (150-400) 11/18/18 05:40 MPV 8.1 fl 11/18/18 05:40 Neutrophils % 54.7 % (40.0-80.0) 11/18/18 05:40 Lymphocytes % 24.3 % (20.0-50.0) 11/18/18 05:40 Monocytes % 14.2 % (2.0-10.0) H 11/18/18 05:40 Eosinophils % 6.5 % (0.0-5.0) H 11/18/18 05:40 Basophils % 0.3 % (0.0-2.0) 11/18/18 05:40 Sodium 133 mEq/L (136-145) L 11/19/18 06:20 Potassium 4.1 mEq/L (3.5-5.1) 11/19/18 06:20 Chloride 100 mEq/L (98-107) 11/19/18 06:20 Carbon Dioxide 27.8 mEq/L (21.0-31.0) 11/19/18 06:20 Anion Gap 9.3 (7.0-16.0) 11/19/18 06:20 BUN 11 mg/dL (7-25) 11/19/18 06:20 Creatinine 0.8 mg/dL (0.7-1.3) 11/19/18 06:20 Est GFR ( Amer) > 60.0 ml/min (>90) 11/19/18 06:20 Est GFR (Non-Af Amer) > 60.0 ml/min 11/19/18 06:20 BUN/Creatinine Ratio 13.8 11/19/18 06:20 Glucose 99 mg/dL (70-105) 11/19/18 06:20 POC Glucose 109 MG/DL (70 - 105) H 11/15/18 11:58 Plasma/Ser Osmolality 268 mOsmol/kg (280-301) L 11/17/18 06:05 Uric Acid 2.6 mg/dL (4.4-7.6) L 11/16/18 05:15 Calcium 8.8 mg/dL (8.6-10.3) 11/19/18 06:20 Phosphorus 3.5 mg/dL (2.5-5.0) 11/16/18 05:15 Magnesium 2.2 mg/dL (1.9-2.7) 11/16/18 05:15 Total Bilirubin 0.4 mg/dL (0.3-1.0) 11/15/18 06:06 AST 11 U/L (13-39) L 11/15/18 06:06 ALT 13 U/L (7-52) 11/15/18 06:06 Alkaline Phosphatase 69 U/L (34-104) 11/15/18 06:06 Ammonia 70 umol/L (16-53) H 11/18/18 10:25 Total Protein 7.1 gm/dL (6.0-8.3) 11/15/18 06:06 Albumin 4.1 gm/dL (4.2-5.5) L 11/15/18 06:06 Globulin 3.0 gm/dL 11/15/18 06:06 Albumin/Globulin Ratio 1.4 (1.0-1.8) 11/15/18 06:06 TSH 1.88 uIU/ml (0.34-5.60) 11/16/18 05:15 Urine Source CATH 11/15/18 01:17 Urine Color YELLOW 11/15/18 01:17 Urine Clarity HAZY (CLEAR) 11/15/18 01:17 Urine pH 7.0 (4.6 - 8.0) 11/15/18 01:17 Ur Specific [employer] [place] 1.010 (1.005-1.030) 11/15/18 01:17 Urine Protein NEGATIVE mg/dL (NEGATIVE) 11/15/18 01:17 Urine Glucose (UA) NEGATIVE mg/dL (NEGATIVE) 11/15/18 01:17 Urine Ketones NEGATIVE mg/dL (NEGATIVE) 11/15/18 01:17 Urine Blood TRACE (NEGATIVE) 11/15/18 01:17 Urine Nitrate NEGATIVE (NEGATIVE) 11/15/18 01:17 Urine Bilirubin NEGATIVE (NEGATIVE) 11/15/18 01:17 Urine Urobilinogen 0.2 E.U./dL (0.2 - 1.0) 11/15/18 01:17 Ur Leukocyte Esterase LARGE (NEGATIVE) H 11/15/18 01:17 Urine RBC 0-2 /hpf (0-5) H 11/15/18 01:17 Urine WBC 10-25 /hpf (0-5) H 11/15/18 01:17 Ur Epithelial Cells OCCASIONAL /lpf (FEW) 11/15/18 01:17 Urine Bacteria FEW /hpf (NONE SEEN) 11/15/18 01:17 Urine Osmolality 408 mOsmol/kg 11/15/18 16:35 Ur Random Sodium 66 mmol/L 11/15/18 16:35 Carbamazepine 7.1 ug/ml (4.0-12.0) 11/17/18 06:05 Levetiracetam 13.1 ug/mL (10.0-40.0) 11/14/18 23:53 - Physical Exam Vitals and I&O: Vital Signs Temp 98.4 F 11/19/18 15:23 Pulse 57 11/19/18 15:23 Resp 18 11/19/18 15:23 BP 100/47 11/19/18 15:23 Pulse Ox 95 11/19/18 15:23 Intake & Output 11/18/18 11/19/18 11/19/18 18:59 06:59 18:59 Intake Total 1070 Balance 1070 Weight (lbs) 103.419 kg 103.419 kg Intake: Intake, IV Amount 50 [id number] 1 gm In 50 Sodium Chloride 0.9% 50 ml @ 100 mls/hr IV Q24HR [facility] Rx#:[id number] Oral 1020 Other: # Voids 3 2 # Bowel Movements 1 Weight Source Estimated Estimated Active Medications: Current Medications Citalopram Hydrobromide (Celexa) 10 mg PO QAM [facility]; Protocol Stop: 01/17/19 08:59 Last Admin: 11/19/18 08:46 Dose: 10 mg Docusate Sodium (Colace) 250 mg PO DAILY [facility] Stop: 01/15/19 08:59 Last Admin: 11/19/18 08:46 Dose: 250 mg Haloperidol Decanoate (Haldol Dec) 50 mg IM QMONTH [facility] Stop: 02/03/19 08:59 Last Admin: 11/16/18 13:02 Dose: Not Given Ceftriaxone Sodium 1 gm/ (Sodium Chloride) 50 mls @ 100 mls/hr IV Q24HR [facility] Stop: 01/14/19 13:59 Last Admin: 11/19/18 13:59 Dose: 100 mls/hr Lactulose (Cephulac) 10 gm PO QID [facility] Stop: 01/14/19 16:59 Last Admin: 11/19/18 13:37 Dose: 10 gm Levetiracetam (Keppra) 1,000 mg PO HS [facility] Stop: 01/14/19 20:59 Last Admin: 11/18/18 21:03 Dose: 1,000 mg Losartan Potassium (Cozaar) 50 mg PO DAILY [facility] Stop: 01/15/19 08:59 Last Admin: 11/19/18 08:45 Dose: 50 mg Olanzapine (Zyprexa Zydis) 5 mg PO HS [facility]; Protocol Stop: 01/17/19 20:59 Last Admin: 11/18/18 21:03 Dose: 5 mg Phenytoin (Dilantin) 100 mg PO TID [facility] Stop: 01/16/19 16:59 Last Admin: 11/19/18 13:37 Dose: 100 mg Simvastatin (Zocor) 20 mg PO HS [facility]; Protocol Stop: 01/14/19 20:59 Last Admin: 11/18/18 21:03 Dose: 20 mg General: Alert, No acute distress HEENT: Atraumatic, Mucous membr. 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 Elevated NH3 Cx UTI Ess Htn Dyslipidemia - Plan Plan: Lab - Result Diagrams 11/16/18 05:15 11/16/18 05:15 Current Medications Carbamazepine (Tegretol) 200 mg PO TID [facility]; Protocol Stop: 01/14/19 13:59 Last Admin: 11/16/18 14:18 Dose: 200 mg Citalopram Hydrobromide (Celexa) 20 mg PO QAM [facility]; Protocol Stop: 01/15/19 11:59 Last Admin: 11/16/18 14:17 Dose: 20 mg Docusate Sodium (Colace) 250 mg PO DAILY [facility] Stop: 01/15/19 08:59 Last Admin: 11/16/18 08:34 Dose: 250 mg Haloperidol Decanoate (Haldol Dec) 50 mg IM QMONTH [facility] Stop: 02/03/19 08:59 Last Admin: 11/16/18 13:02 Dose: Not Given Ceftriaxone Sodium 1 gm/ (Sodium Chloride) 50 mls @ 100 mls/hr IV Q24HR [facility] Stop: 01/14/19 13:59 Last Admin: 11/16/18 14:43 Dose: 100 mls/hr Lactulose (Cephulac) 10 gm PO QID [facility] Stop: 01/14/19 16:59 Last Admin: 11/16/18 14:17 Dose: 10 gm Levetiracetam (Keppra) 1,000 mg PO HS [facility] Stop: 01/14/19 20:59 Last Admin: 11/15/18 20:31 Dose: 1,000 mg Losartan Potassium (Cozaar) 50 mg PO DAILY [facility] Stop: 01/15/19 08:59 Last Admin: 11/16/18 08:35 Dose: 50 mg Olanzapine (Zyprexa Zydis) 10 mg PO HS [facility]; Protocol Stop: 01/14/19 20:59 Simvastatin (Zocor) 20 mg PO HS [facility]; Protocol Stop: 01/14/19 20:59 Last Admin: 11/15/18 20:31 Dose: 20 mg Lab - Result Diagrams 11/18/18 05:40 11/19/18 06:20 Na better @ 133 agree w/ DC Tegretol f/u electyrolytes Nutritional Asmnt/Malnutr-PDOC - Dietary Evaluation Malnutrition Findings (Please click <Entered> for more info): Nutritional Asmnt/Malnutrition Start: 11/19/18 09: 36 Text: Status: Complete Freq: Protocol: Document 11/19/18 09:37 CY (Rec: 11/19/18 09:41 CY [email or web address]- [email or web address]) Nutritional Asmnt/Malnutrition Patient General Information Diagnosis hepatic encephalopathy, hyponatremia, hypoglycemia Pertinent Medical Hx/Surgical Hx HTN, DMII, CHF, dyslipidemia, seizures disorder, cirrhosis Current Diet Order/ Nutrition Support pureed Pertinent Medications reviewed Pertinent Labs 11/19: Na 133, K 4.1, Cl 100, CO2 27.8, BUN 11, Cr 0.8, Ca 8 .8, glucose 99 Nutritional Hx/Data Height 1.88 m Height (Calculated Centimeters) 188.0 Current Weight (lbs) 103.419 kg Weight (Calculated Kilograms) 103.4 Weight (Calculated Grams) 394791.1 Body Mass Index (BMI) 29.2 Weight Status Overweight GI Symptoms GI Symptoms None Last BM 11/18 Cultural/Ethnic/Church Belief unknown Usual diet at home unknown Skin Integrity/Comment: rui score 13 Estimated Nutritional Goals BEE in Kcals: Using Current wt Calories/Kcals/Kg 25+kcals/kg Kcals Calculated 2575+ Protein: Using Current wt Protein g/kg: ~1g/kg Protein Calculated ~103g/day Fluid: ml per MD Nutritional Problem 1. Problem Problem No nutrition diagnosis at this time Intervention/Recommendation Comments Recommend regular diet with texture per [employer]ES AND SERVICE REPRESENTATIVE Expected Outcomes/Goals Expected Outcomes/Goals PO intake >75% of meals
--- NOTE | 2018-11-19 20:03 | Progress Notes ---
DATE: 11/19/2018 DATE OF SERVICE: 11/19/2018 SUBJECTIVE: Chart was reviewed and the patient interviewed. Also discussed the patient's condition with the staff and reviewed records and labs. The patient seems to be more alert today since I decreased his medications yesterday. He only had one episode of agitation and irritability. The patient also is easier to follow directions according to staff and he is exhibiting no major behavioral issues. He also is compliant with taking medications with no side effects. ASSESSMENT: The patient seems to be less agitated and less sedated. TREATMENT PLAN: Continue Zyprexa 5 mg twice a day. Also, continue adjusting medications and working on behavioral modification. JOB# [id number]
== END 2018-11-19 20:35 | DRG 441 ==
LOC: ER 23:14 → TELE 11-15 03:00
PROVIDERS: ADMIT Internal Medicine; ATTEND Internal Medicine
DX: K72.90 Hepatic failure, unspecified without coma (principal); G93.41 Metabolic encephalopathy; E22.2 Syndrome of inappropriate secretion of antidiuretic hormone; N39.0 Urinary tract infection, site not specified; T42.1X5A Adverse effect of iminostilbenes, initial encounter; I11.0 Hypertensive heart disease with heart failure; I50.9 Heart failure, unspecified; E11.9 Type 2 diabetes mellitus without complications; E78.5 Hyperlipidemia, unspecified; F03.90 Unspecified dementia, unspecified severity, without behavioral disturbance, psychotic disturbance, mood disturbance, and anxiety; G40.909 Epilepsy, unspecified, not intractable, without status epilepticus; K74.60 Unspecified cirrhosis of liver; Y92.89 Other specified places as the place of occurrence of the external cause; F25.9 Schizoaffective disorder, unspecified; F29 Unspecified psychosis not due to a substance or known physiological condition
CPT/HCPCS: 36415-UA; 80048-TC; 80053-TC; 80156-TC; 80299-90; 81001-TC; 82140-TC; 82948-90; 83735-TC; 83930-90; 83935-90; 84100-TC; 84300-TC; 84443-TC; 84550-TC; 85025-TC; 87086-90; J0696; J1956; J7030; Z7610